=== PATIENT | female | born 1945 | race Caucasian/White ===

== ENCOUNTER 2020-07-31 12:46 | Outpatient (REF) | payer MEDICARE, OTHER, SELFPAY ==
--- NOTE | 2020-07-31 | CT_ITS ---
EXAMINATION: CT SINUS WITHOUT CONTRAST CLINICAL INFORMATION: Nasal polyp. COMPARISON: None TECHNIQUE: Axial 2 mm thin and reformatted 2 mm thin coronal and sagittal images of sinuses were obtained without contrast. This CT examination was performed using dose optimization techniques as appropriate, variously including the following: Automated exposure control. Adjustment of mA and/or kV according to patient size (this includes techniques or standardized protocols for targeted exams where dose is matched to indication/reason for exam; i.e. extremities or head). Use of iterative reconstruction technique. DLP: 89 mGy-cm FINDINGS: FRONTAL SINUSES AND DRAINAGE PATHWAYS: There is mild mucoperiosteal thickening bilateral frontal sinuses. The frontoethmoidal recesses are widely patent. MAXILLARY SINUSES AND DRAINAGE PATHWAYS: There is mild mucoperiosteal thickening bilateral maxillary sinuses. The ostiomeatal complex is patent bilaterally in spite of mild mucoperiosteal thickening. ETHMOID SINUSES: There is mild mucoperiosteal thickening right posterior ethmoid sinus. The ethmoid roofs are symmetric, with olfactory fossa depth of 0.48 cm on the right and 0.42 cm on the left. SPHENOID SINUSES AND DRAINAGE PATHWAYS: Mild mucoperiosteal thickening right sphenoid sinus is noted. The sphenoid ostia are patent. The carotid canals are covered by bone. NASAL CAVITY/NASOPHARYNX: The nasal cavity is clear. There is no nasal septal deviation/spurring. The nasopharynx is symmetric. Bilateral paradoxical middle turbinates are noted. ADDITIONAL RELEVANT FINDINGS: The TMJs articulate normally. The orbits and skull base soft tissues are unremarkable. The middle ear cavities and mastoid air cells are clear. Limited evaluation demonstrates no acute intracranial findings. CT/CT sinus wo con IMPRESSION: Chronic pansinusitis. The drainage pathways are widely patent. The nasal cavity and nasopharynx appears intact.
== END 2020-07-31 12:47 | disposition home or self-care (01) ==
LOC: HO.CT 12:46
PROVIDERS: PCP Internal Medicine; Visit Provider Otolaryngology
DX: J33.9 Nasal polyp, unspecified (principal)
CPT/HCPCS: 70486

== ENCOUNTER 2020-08-28 15:14 | Outpatient (REF) | payer MEDICARE, OTHER, SELFPAY ==
--- NOTE | 2020-08-28 15:18 | MM_ITS ---
EXAMINATION: MM SCREENING DIGITAL BREAST TOMOSYNTHESIS, BILATERAL CLINICAL INFORMATION: Screening. Asymptomatic. The lifetime risk of breast cancer based on the Tyrer-Cuzick Model is 13.0%. COMPARISON: Mammography: August 17, 2019 and studies dating back to February 17, 2012 TECHNIQUE: Digital breast tomosynthesis is performed in both the craniocaudal and mediolateral oblique views along with computer-aided detection (CAD). Synthesized 2D images are generated from the tomosynthesis. FINDINGS: The breasts are extremely dense, which lowers the sensitivity of mammography (ACR BI-RADS breast composition Category d). There are no significant masses, abnormal calcifications, or other abnormalities. There is essentially stable calcifications about the upper outer aspect of the left breast. MM/MM tomosynthesis screening BI IMPRESSION: There are no significant changes from prior study. ASSESSMENT: BI-RADS 2: Benign RECOMMENDATION: Routine annual mammography screening. This patient's information was entered into a reminder system with a target due date for their next mammogram.
== END 2020-08-28 15:15 | disposition home or self-care (01) ==
LOC: HO.MAMMO 15:14
PROVIDERS: PCP Internal Medicine; Visit Provider Internal Medicine
DX: Z12.31 Encounter for screening mammogram for malignant neoplasm of breast (principal)
CPT/HCPCS: 77063; 77067

== ENCOUNTER 2020-09-02 14:00 | Outpatient (REF) | payer MEDICARE, OTHER, SELFPAY ==
--- NOTE | 2020-09-02 | MM_ITS ---
EXAMINATION: BONE DENSITOMETRY CLINICAL INDICATION: Encounter for screening for osteoporosis. COMPARISON: Previous BD dated 07/27/2017 and baseline BD dated 11/15/2006. TECHNIQUE: Using a [employer] DXA System (software version: 13.1) manufactured by [employer], dual-energy x-ray absorptiometry was performed of the lumbar spine and left hip. The images are of good technical quality. Summary results are attached. FINDINGS: AP SPINE L1-L4: Current: BMD 1.222 g/cm2, Z-score 2.1, T-score 0.3, normal, 0.2% decrease from previous, 4.1% increase from baseline (<5% change is not significant). Prior: BMD 1.224 g/cm2. Baseline: BMD 1.174 g/cm2. LEFT FEMUR, NECK: Current: BMD 0.946 g/cm2, Z-score 1.2, T-score -0.7, normal. Prior: BMD 0.961 g/cm2. Baseline: BMD 0.985 g/cm2. LEFT FEMUR, TOTAL: Current: BMD 0.886 g/cm2, Z-score 0.7, T-score -1.0, normal, 12.3% decrease from previous, 12.0% decrease from baseline (<5% change is not significant). Prior: BMD 1.010 g/cm2. Baseline: BMD 1.007 g/cm2. IDENTIFIED RISK FACTORS: Menopause. HISTORY OF FRACTURE: None listed. MEDICATIONS: Vitamin D. MM/XR DEXA axial skeleton IMPRESSION: 1. DIAGNOSIS: Normal bone density based on the lowest T-score value of -1.0 in the total femur applying World Health Organization criteria. 2. 10-YEAR FRACTURE RISK PREDICTION, FRAX: According to the guidelines, FRAX calculation should only be performed on patients in the osteopenia bone density category. Therefore, FRAX was not performed on this patient. 3. Treatment Recommendations: NOF guidelines recommend consideration for treatment in postmenopausal women and men age 50 and older presenting with the following: -A hip or vertebral (clinical or morphometric) fracture. -T-score less than or equal to -2.5 at the femoral neck or spine after appropriate evaluation to exclude secondary causes. -Low bone mass at the hip or spine and a 10-year fracture probability by FRAX of greater than or equal to 3% for hip fracture or greater than or equal to 20% for major osteoporotic fracture based on the [place] adapted WHO algorithm. 4. Other Recommendations: All treatment decisions require clinical judgment and consideration of individual patient factors, including patient preferences, comorbidities, previous drug use, risk factors not captured in the FRAX model (e.g. frailty, falls, vitamin D deficiency, increased bone turnover, interval significant decline in bone density) and possible under or overestimation of fracture risk by FRAX. FUTURE SCAN RECOMMENDATION: People with diagnosed cases of osteoporosis or at high risk for fracture should have regular bone mineral density tests. For patients eligible for Medicare, routine testing is allowed once every 2 years. The testing frequency can be increased to one year for patients who have rapidly progressing disease, those who are receiving or discontinuing medical therapy to restore bone mass, or have additional risk factors.
== END 2020-09-02 14:01 | disposition home or self-care (01) ==
LOC: HO.MAMMO 14:00
PROVIDERS: PCP Internal Medicine; Visit Provider Internal Medicine
DX: Z78.0 Asymptomatic menopausal state (principal)
CPT/HCPCS: 77080

== ENCOUNTER 2020-12-17 14:48 | Outpatient (REF) | payer MEDICARE, OTHER, SELFPAY ==
[2020-12-17 16:46] LABS: Hematocrit 40.9 % (37-47); Hemoglobin 13.5 g/dl (12.0-16.0)
[2020-12-17 17:05] LABS: Alanine Aminotransferase 21 U/L (0-31); Albumin Level 4.3 g/dL (3.5-5.0); Alkaline Phosphatase 126 U/L (39-117); Anion Gap 13 (12-20); Aspartate Amino Transferase 23 U/L (5-31); Bilirubin Total 0.7 mg/dL (0.0-1.0); Blood Urea Nitrogen 22 mg/dL (9-16); Calcium 9.5 mg/dL (8.4-10.2); Carbon Dioxide 29 mmol/L (22-29); Chloride 102 mmol/L (96-108); Estimated Glomerular Filt Rate > 60; Glucose Random 79 mg/dL (60-115); Potassium 4.2 mmol/L (3.3-5.1); Sodium 140 mmol/L (135-145); Total Protein 7.5 g/dL (6.5-8.0)
== END 2020-12-17 14:49 | disposition home or self-care (01) ==
LOC: HO.HMGCLDS 14:48
PROVIDERS: PCP Internal Medicine; Visit Provider Internal Medicine
DX: I10 Essential (primary) hypertension (principal); J45.909 Unspecified asthma, uncomplicated; K44.9 Diaphragmatic hernia without obstruction or gangrene; J30.9 Allergic rhinitis, unspecified; G47.33 Obstructive sleep apnea (adult) (pediatric); I49.9 Cardiac arrhythmia, unspecified; Z91.09 Other allergy status, other than to drugs and biological substances; Z99.89 Dependence on other enabling machines and devices
CPT/HCPCS: 36415; 80053; 85014; 85018

== ENCOUNTER 2021-01-31 09:28 | Outpatient (REF) | payer MEDICARE, OTHER, SELFPAY ==
[2021-01-31 12:14] LABS: Alanine Aminotransferase 20 U/L (0-31); Albumin Level 4.1 g/dL (3.5-5.0); Alkaline Phosphatase 127 U/L (39-117); Aspartate Amino Transferase 22 U/L (5-31); Bilirubin Direct 0.3 mg/dL (0.0-0.5); Bilirubin Total 0.7 mg/dL (0.0-1.0); Cholesterol 170 mg/dL; HDL Cholesterol 56 mg/dL; LDL Cholesterol Calculated 100 mg/dl; Total Protein 7.1 g/dL (6.5-8.0); Triglycerides 70 mg/dL
== END 2021-01-31 09:29 | disposition home or self-care (01) ==
LOC: HO.HMGCLDS 09:28
PROVIDERS: PCP Internal Medicine; Visit Provider Internal Medicine
DX: I65.29 Occlusion and stenosis of unspecified carotid artery (principal)
CPT/HCPCS: 36415; 80061; 80076

== ENCOUNTER 2021-09-24 11:51 | Outpatient (REF) | payer MEDICARE, OTHER, SELFPAY ==
--- NOTE | ~2021-09-24 | MM_ITS ---
EXAMINATION: MM SCREENING DIGITAL BREAST TOMOSYNTHESIS, BILATERAL CLINICAL INFORMATION: Screening. Asymptomatic. The lifetime risk of breast cancer based on the Tyrer-Cuzick Model is 10%. COMPARISON: Mammography: 08/28/2020, [id number] [id number], 08/04/2018 TECHNIQUE: Digital breast tomosynthesis is performed in both the craniocaudal and mediolateral oblique views along with computer-aided detection (CAD). Synthesized 2D images are generated from the tomosynthesis. FINDINGS: The breasts are extremely dense, which lowers the sensitivity of mammography (ACR BI-RADS breast composition Category d). There are no significant masses, abnormal calcifications, or other abnormalities. Breast tissue composition borders on heterogeneously dense. There are scattered benign calcifications again seen mid upper outer left breast and posterior 5:00 right breast. No developing density. The axilla are unremarkable MM/MM tomosynthesis screening BI IMPRESSION: No mammographic evidence of malignancy. ASSESSMENT: BI-RADS 2: Benign RECOMMENDATION: Routine annual mammography screening. This patient's information was entered into a reminder system with a target due date for their next mammogram.
== END 2021-09-24 11:52 | disposition home or self-care (01) ==
LOC: HO.MAMMO 11:51
PROVIDERS: PCP Internal Medicine Endocrinology, Diabetes & Metabolism; Visit Provider Internal Medicine
DX: Z12.31 Encounter for screening mammogram for malignant neoplasm of breast (principal)
CPT/HCPCS: 77063; 77067

== ENCOUNTER 2021-11-26 11:38 | Outpatient (REF) | payer MEDICARE, OTHER, SELFPAY ==
[2021-11-26 14:00] LABS: Appearance Urine CLEAR; Color Urine YELLOW; Glucose Urine UA NEG (NEG); Leukocyte Esterase Urine NEG (NEG); Nitrite Urine NEG (NEG); Specific Gravity - Urine <= 1.005 (1.005-1.025); Urine Blood NEG (NEG); Urine Ketones NEG (NEG); Urine Protein NEG (NEG-TRACE)
== END 2021-11-26 11:39 | disposition home or self-care (01) ==
LOC: HO.HMGCLDS 11:38
PROVIDERS: Visit Provider Internal Medicine
DX: R10.2 Pelvic and perineal pain (principal)
CPT/HCPCS: 81003

== ENCOUNTER 2021-12-17 13:34 | Outpatient (REF) | payer MEDICARE, OTHER, SELFPAY ==
[2021-12-17 16:50] LABS: MANUAL DIFF FLAG NO
[2021-12-17 17:00] LABS: Basophils Percent Auto 0.4 % (0-2); Eosinophils Absolute Auto 0.3 X10*3/uL (0.0-0.4); Eosinophils Percent Auto 4.1 % (0-4); Hematocrit 38.3 % (37.0-47.0); Hemoglobin 12.5 g/dl (12.0-16.0); Imm Gran Abs Auto 0.05 X10*3/uL (0.00-0.03); Imm Gran Pct Auto 0.7 % (0.0-0.4); Lymphocytes Absolute Auto 1.1 X10*3/uL (1.2-4.9); Lymphocytes Percent Auto 16.5 % (20-40); Mean Corpuscular HGB Conc 32.6 g/dl (31.0-35.0); Mean Corpuscular Hemoglobin 29.8 pg (27.0-33.0); Mean Corpuscular Volume 91.4 fL (80.0-98.0); Mean Platelet Volume 10.8 fL (9.4-12.3); Monocytes Absolute Auto 0.9 X10*3/uL (0.1-1.2); Monocytes Percent Auto 12.6 % (2-11); Neutrophils Absolute Auto 4.5 x10*3/uL (2.0-8.3); Neutrophils Percent Auto 65.7 % (45-73); Platelet Count 270 X10*3/uL (160-400); Red Blood Count 4.19 X10*6/uL (4.20-5.50); Red Cell Distribution Width 12.3 % (11.0-16.0); White Blood Count 6.9 X10*3/uL (4.8-10.8)
[2021-12-17 17:08] LABS: Alanine Aminotransferase 16 U/L (0-31); Albumin Level 3.9 g/dL (3.5-5.0); Alkaline Phosphatase 121 U/L (39-117); Anion Gap 13 (12-20); Aspartate Amino Transferase 27 U/L (5-31); Bilirubin Total 0.8 mg/dL (0.0-1.0); Blood Urea Nitrogen 19 mg/dL (9-16); Calcium 9.4 mg/dL (8.4-10.2); Carbon Dioxide 26 mmol/L (22-29); Chloride 104 mmol/L (96-108); Estimated Glomerular Filt Rate > 60; Glucose Random 88 mg/dL (60-115); Magnesium 2.2 mg/dL (1.6-2.6); Potassium 4.4 mmol/L (3.3-5.1); Sodium 139 mmol/L (135-145); Total Protein 7.2 g/dL (6.5-8.0)
[2021-12-17 17:30] LABS: Ferritin 520 ng/mL (10-250); TSH reflex Free T4 0.79 uIU/mL (0.32-4.0)
[2021-12-17 17:32] LABS: Vitamin B12 495 pg/mL (200-900)
[2021-12-23 13:46] LABS: Vitamin D 25-OH, D2 <4 ng/mL; Vitamin D 25-OH, D3 34 ng/mL; Vitamin D 25-OH, Total 34 ng/mL (30-100)
== END 2021-12-17 13:35 | disposition home or self-care (01) ==
LOC: HO.HMGCLDS 13:34
PROVIDERS: PCP Internal Medicine; Visit Provider Internal Medicine
DX: R53.83 Other fatigue (principal); J45.909 Unspecified asthma, uncomplicated; I10 Essential (primary) hypertension; M35.00 Sjogren syndrome, unspecified; K44.9 Diaphragmatic hernia without obstruction or gangrene; Z91.09 Other allergy status, other than to drugs and biological substances
CPT/HCPCS: 36415; 80053; 82306; 82607; 82728; 83735; 84443; 85025

== ENCOUNTER 2022-01-22 11:08 | Outpatient (REF) | payer MEDICARE, OTHER, SELFPAY ==
[2022-01-22 14:38] LABS: Ferritin 358 ng/mL (10-250)
== END 2022-01-22 11:09 | disposition home or self-care (01) ==
LOC: HO.HMGCLDS 11:08
PROVIDERS: PCP Internal Medicine; Visit Provider Internal Medicine
DX: R79.89 Other specified abnormal findings of blood chemistry (principal)
CPT/HCPCS: 36415; 81256; 82728

== ENCOUNTER 2022-09-30 11:30 | Outpatient (REF) | payer MEDICARE, OTHER, SELFPAY ==
--- NOTE | ~2022-09-30 | MM_ITS ---
EXAMINATION: MM SCREENING DIGITAL BREAST TOMOSYNTHESIS, BILATERAL CLINICAL INFORMATION: Screening. Asymptomatic. The lifetime risk of breast cancer based on the Tyrer-Cuzick Model is 9%. COMPARISON: Mammography: 09/24/2021, 08/28/2020, 08/17/2019 TECHNIQUE: Digital breast tomosynthesis is performed in both the craniocaudal and mediolateral oblique views along with computer-aided detection (CAD). Synthesized 2D images are generated from the tomosynthesis. FINDINGS: The breasts are extremely dense, which lowers the sensitivity of mammography (ACR BI-RADS breast composition Category d). Parenchymal pattern is similar to prior studies. No developing density or significant mass or architectural abnormality. There are scattered coarse and punctate calcifications. The axilla and skin contours are unremarkable. There are no significant changes. MM/MM tomosynthesis screening BI IMPRESSION: No mammographic evidence of malignancy. ASSESSMENT: BI-RADS 2: Benign RECOMMENDATION: Routine annual mammography screening. This patient's information was entered into a reminder system with a target due date for their next mammogram.
== END 2022-09-30 11:31 | disposition home or self-care (01) ==
LOC: HO.MAMMO 11:30
PROVIDERS: PCP Internal Medicine; Visit Provider Internal Medicine Endocrinology, Diabetes & Metabolism
DX: Z12.31 Encounter for screening mammogram for malignant neoplasm of breast (principal)
CPT/HCPCS: 77063; 77067

== ENCOUNTER 2022-10-15 08:59 | Outpatient (REF) | payer MEDICARE, OTHER, SELFPAY ==
[2022-10-15 11:22] LABS: MANUAL DIFF FLAG NO
[2022-10-15 11:36] LABS: Basophils Percent Auto 0.7 % (0-2); Eosinophils Absolute Auto 0.2 X10*3/uL (0.0-0.4); Eosinophils Percent Auto 5.1 % (0-4); Hematocrit 42.6 % (37.0-47.0); Hemoglobin 14.1 g/dl (12.0-16.0); Imm Gran Abs Auto 0.01 X10*3/uL (0.00-0.03); Imm Gran Pct Auto 0.2 % (0.0-0.4); Lymphocytes Absolute Auto 1.4 X10*3/uL (1.2-4.9); Lymphocytes Percent Auto 31.6 % (20-40); Mean Corpuscular HGB Conc 33.1 g/dl (31.0-35.0); Mean Corpuscular Hemoglobin 29.9 pg (27.0-33.0); Mean Corpuscular Volume 90.4 fL (80.0-98.0); Mean Platelet Volume 11.3 fL (9.4-12.3); Monocytes Absolute Auto 0.5 X10*3/uL (0.1-1.2); Monocytes Percent Auto 11.5 % (2-11); Neutrophils Absolute Auto 2.2 x10*3/uL (2.0-8.3); Neutrophils Percent Auto 50.9 % (45-73); Platelet Count 196 X10*3/uL (160-400); Red Blood Count 4.71 X10*6/uL (4.20-5.50); Red Cell Distribution Width 12.6 % (11.0-16.0); White Blood Count 4.3 X10*3/uL (4.8-10.8)
[2022-10-15 12:13] LABS: Alanine Aminotransferase 23 U/L (0-31); Albumin Level 4.1 g/dL (3.5-5.0); Alkaline Phosphatase 120 U/L (39-117); Anion Gap 14 (12-20); Aspartate Amino Transferase 26 U/L (5-31); Bilirubin Total 0.8 mg/dL (0.0-1.0); Blood Urea Nitrogen 19 mg/dL (9-16); Calcium 9.4 mg/dL (8.4-10.2); Carbon Dioxide 26 mmol/L (22-29); Chloride 108 mmol/L (96-108); Cholesterol 130 mg/dL; Estimated Glomerular Filt Rate > 60; Ferritin 320 ng/mL (10-250); Glucose Fasting 86 mg/dL (60-99); HDL Cholesterol 48 mg/dL; LDL Cholesterol Calculated 65 mg/dl; Sodium 144 mmol/L (135-145); TSH reflex Free T4 1.59 uIU/mL (0.32-4.0); Total Protein 7.1 g/dL (6.5-8.0); Triglycerides 86 mg/dL
== END 2022-10-15 09:00 | disposition home or self-care (01) ==
LOC: HO.HMGCLDS 08:59
PROVIDERS: PCP Internal Medicine; Visit Provider Internal Medicine
DX: F41.9 Anxiety disorder, unspecified (principal); I48.0 Paroxysmal atrial fibrillation; R06.02 Shortness of breath; R79.89 Other specified abnormal findings of blood chemistry; I10 Essential (primary) hypertension
CPT/HCPCS: 36415; 80053; 80061; 81256; 82728; 84443; 85025

== ENCOUNTER 2023-02-26 13:48 | Outpatient (REF) | payer MEDICARE, OTHER, SELFPAY ==
[2023-02-26 16:16] LABS: MANUAL DIFF FLAG NO
[2023-02-26 16:29] LABS: Basophils Percent Auto 0.6 % (0-2); Eosinophils Absolute Auto 0.2 X10*3/uL (0.0-0.4); Eosinophils Percent Auto 3.7 % (0-4); Hemoglobin 13.1 g/dl (12.0-16.0); Imm Gran Abs Auto 0.02 X10*3/uL (0.00-0.03); Imm Gran Pct Auto 0.4 % (0.0-0.4); Lymphocytes Absolute Auto 1.6 X10*3/uL (1.2-4.9); Lymphocytes Percent Auto 30.2 % (20-40); Mean Corpuscular HGB Conc 32.8 g/dl (31.0-35.0); Mean Corpuscular Hemoglobin 30.2 pg (27.0-33.0); Mean Corpuscular Volume 92.2 fL (80.0-98.0); Mean Platelet Volume 11.4 fL (9.4-12.3); Monocytes Absolute Auto 0.6 X10*3/uL (0.1-1.2); Monocytes Percent Auto 11.9 % (2-11); Neutrophils Absolute Auto 2.9 x10*3/uL (2.0-8.3); Neutrophils Percent Auto 53.2 % (45-73); Platelet Count 190 X10*3/uL (160-400); Red Blood Count 4.34 X10*6/uL (4.20-5.50); Red Cell Distribution Width 12.9 % (11.0-16.0); White Blood Count 5.4 X10*3/uL (4.8-10.8)
[2023-02-26 17:49] LABS: Ferritin 300 ng/mL (10-250)
[2023-02-26 19:10] LABS: Alanine Aminotransferase 20 U/L (0-31); Albumin Level 4.2 g/dL (3.5-5.0); Alkaline Phosphatase 107 U/L (39-117); Anion Gap 13 (12-20); Aspartate Amino Transferase 27 U/L (5-31); Bilirubin Total 0.9 mg/dL (0.0-1.0); Blood Urea Nitrogen 19 mg/dL (9-16); Calcium 10.2 mg/dL (8.4-10.2); Carbon Dioxide 26 mmol/L (22-29); Chloride 105 mmol/L (96-108); Estimated Glomerular Filt Rate > 60; Glucose Random 76 mg/dL (60-115); Potassium 3.9 mmol/L (3.3-5.1); Sodium 140 mmol/L (135-145); Total Protein 7.7 g/dL (6.5-8.0)
== END 2023-02-26 13:49 | disposition home or self-care (01) ==
LOC: HO.HMGCLDS 13:48
PROVIDERS: Absent Provider Internal Medicine Rheumatology; PCP Internal Medicine; Referring Provider Internal Medicine; Visit Provider Internal Medicine
DX: I10 Essential (primary) hypertension (principal); M35.00 Sjogren syndrome, unspecified; K44.9 Diaphragmatic hernia without obstruction or gangrene; J45.909 Unspecified asthma, uncomplicated; I48.0 Paroxysmal atrial fibrillation; R79.89 Other specified abnormal findings of blood chemistry; Z91.09 Other allergy status, other than to drugs and biological substances
CPT/HCPCS: 36415; 80053; 82728; 85025

== ENCOUNTER 2023-07-14 12:55 | Outpatient (AMB) | payer MEDICARE, OTHER, SELFPAY ==
--- NOTE | 2023-07-14 13:01 | MHC.PC.OV ---
Vital Signs 07/14/23 13:02 Height 5 ft 6 in Weight 156 lb BMI 25.2 BP 130/80 Blood Pressure Location Rt brachial Position Sitting Pulse 78 Pulse Source Pulse Oximeter Pulse Oximetry (%) 98 Oxygen Delivery Method Room Air Intake Visit Reasons: 4 month follow up Allergies albuterol Allergy (Unknown, Verified 07/14/23 13:03) unknown amoxicillin Allergy (Unknown, Verified 07/14/23 13:03) nausea headache dizzy weak bed ridden for 2 days lisinopril [Zestril] Allergy (Unknown, Verified 07/14/23 13:03) cough mepivocaine Allergy (Unknown, Uncoded 07/14/23 13:03) dizziness, weak, nausea OLIMPIA inhibitors - zetril Adverse Reaction (Unknown, Uncoded 07/14/23 13:03) cough Medication List - Last Reconciled 07/14/23 by Bola Carroll MD acetaminophen (Tylenol Extra Strength) 500 mg PO Q6H PRN amlodipine 2.5 mg PO DAILY apixaban (Eliquis) 5 mg PO BID atorvastatin 10 mg PO DAILY clobetasol 0.05% grams topical BID coenzyme Q10 (Co Q-10) PO DAILY escitalopram oxalate 5 mg PO DAILY 90 days fluocinolone 0.025% appl topical losartan 50 mg PO BID 90 days metoprolol succinate ER 25 mg PO DAILY omega-3 fatty acids (Fish Oil Concentrate) 1,000 mg PO DAILY psyllium husk (Metamucil) 0.4 grams PO DAILY triamcinolone acetonide 0.1% appl topical BID Tobacco use date assessed: 07/14/23 Fall risk assessment: No Falls in past year Last assessed Fall Risk: 07/14/23 Dental Screening Dental Screen Date: 07/14/23 Did you have a dental visit in the last 12 months?: Yes Did you have a dental problem in the last 6 months where you did not have access to dental care?: No Was dental information given to patient?: Patient has dentist HPI 4 month follow up HPI Details Patient is 78-year-old female came in today for her regular follow-up appointment Hypertension:? Blood pressure is stable, patient is taking? losartan 50 mg and metoprolol succinate 25 mg for paroxysmal atrial fibrillation.? ?She is also on amlodipine 2.5 mg Hiatal hernia: Patient is taking Pepcid [id number] and diet-controlled Low Voltage Electrician is? Dr. Zamora, patient is seeing him for atrial fibrillation, patient is on Eliquis She has seen Dr. Long for electrophysiological ablation, and was told she is not a candidate. She will be having nuclear images to rule out amyloid in her heart She is also on atorvastatin for lipid control Allergies: Continue Zyrtec Anxiety disorder:? Continue Lexapro 5 mg Other providers patient is seeing 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 Oscar Malone for chronic Vagina itching [ Lichen sclerosis ] Follow-up November She had labs done through Dr. Chong staff and Dr. Zamora they were reviewed Prevnar 20 vaccine was given today She has had COVID vaccine April 30, flu vaccine May 31, RSV vaccine July 03 [facility] Medical History Chronic cardiac arrhythmia Obstructive sleep apnea on CPAP Asthma, mild Hiatal hernia Atrial septal defect Sjogrens syndrome YODIT positive Allergic rhinitis Environmental allergies Hypertension, essential Surgical History History of colonoscopy Family History Father CAD (coronary artery disease) Substance use disorder Mother Diabetes mellitus HTN (hypertension) Colon cancer Breast cancer Stroke Kidney problem BRCA negative CAD (coronary artery disease) Sister HTN (hypertension) Maternal Grandmother Unknown family medical history Maternal Grandfather No problems noted. Paternal Grandfather No problems noted. Paternal Grandmother No problems noted. Maternal Aunt Breast cancer Brother No problems noted. Sister No problems noted. Social History Housing: House Alcohol intake: current Alcohol intake frequency: holidays/special occasions only Patient Tobacco Use Status: Never used Tobacco e-Cigarette/Vaping Use: Never Used Second Hand Smoke Exposure: Yes () Current occupational status: retired Cognitive needs: No Hearing needs: No Vision needs: No Questionnaire PHQ-9 Over the last 2 weeks, how often have you been bothered by any of the following problems? 1. Little interest or pleasure in doing things: not at all 2. Feeling down, depressed, or hopeless: not at all 3. Trouble falling or staying asleep, or sleeping too much: several days 4. Feeling tired or having little energy: more than half the days 5. Poor appetite or overeating: not at all 6. Feeling bad about yourself - or that you are a failure or have let yourself or your family down: not at all 7. Trouble concentrating on things, such as reading the newspaper or watching television: not at all 8. Moving or speaking so slowly that other people could have noticed. Or the opposite - being so fidgety or restless that you have been moving around a lot more than usual: not at all 9. Thoughts that you would be better off or of hurting yourself in some way: not at all Total score: 3 Depression Screening Interpretation: Negative Depression Screening Done: Yes 63819 - PHQ-9 Billing: Yes Source: Developed by Drs. Kaushik Simons, Lizzette Shirley, Arnav Pritchard and colleagues, with an educational romina from [employer]. Thrive Questionnaire Date Thrive assessed: 10/14/22 MELISA-7 AMB Questionnaire MELISA-7 Date MELISA - 7 assessed: 10/14/22 Source: Developed by Drs. Kaushik Simons, Arnav Ghotra and colleagues, with an educational romina from [employer]. Review of Systems Const Denies chills and Denies fever(s) ENT Denies epistaxis and Denies nasal discharge Card Denies chest pain Resp Denies chest congestion, Denies cough and Denies hemoptysis GI Denies diarrhea and Denies nausea Skin/Breast Denies rash Neuro Reports no additional complaints Psych Reports no additional complaints Endo Reports no additional complaints Physical exam (Primary Care) Vital Signs: Last Vital Signs Pulse 78 07/14/23 13:02 BP 130/80 07/14/23 13:02 Pulse Ox 98 07/14/23 13:02 Oxygen Delivery Method Room Air 07/14/23 13:02 BMI result Body Mass Index 25.2 Tobacco/Smoking Status: Tobacco use Status Tobacco use date assessed 07/14/23 07/14/23 13:04 Patient Tobacco Use Status Never used Tobacco 07/14/23 13:02 e-Cigarette/Vaping Use Never Used 07/14/23 13:02 PHQ-9: PHQ-9 Score PHQ-9: Total score 3 07/14/23 13:33 Depression Screening Interpretation: Negative Thrive Assessment: Date of Thrive Assessment Date Thrive assessed 10/14/22 07/14/23 13:02 Const General: cooperative, comfortable and no acute distress Orientation/consciousness: patient oriented x3 HENMT Head: Yes normocephalic Eyes General: appearance normal, both eyes and all related structures Neck Neck: Yes supple Resp Other: Seemed to be in mild shortness of breath which is a baseline for the patient Effort & Inspection: no cough and no stridor Auscultation: clear to auscultation bilaterally Cardio Other: Irregular heart rate Heart sounds: S1 normal heart sound present and S2 normal heart sound present Skin General skin exam: turgor normal Neuro General: patient oriented x3, tone normal and moves all extremities Extrem Right lower extremity: no edema Left lower extremity: no edema Immunizations pneumoc 20-sariah conj-dip cr(PF) 0.5 mL IM syringe Performing Provider: Bola Carroll MD Performing Location: [facility] [place] Administered by: Rosa Choudhury CMA on 07/14/23 13:33 Dose Route Admin Location Dispensed Lot Number Expiration Date NDC Dye Beck Reel Operator 0.5 mL IM Left Deltoid 0.5 mL [id number] 06/05/24 9893-5983-17 RedT/Cloubrain VIS Given Date VIS Provided VIS Publication Date 07/14/23 Single Vaccine 21 Eligibility Eligibility Date Funding Source Not [facility] Eligible 07/14/23 Private Assessment and Plan Assessment & Plan (1) Paroxysmal atrial fibrillation: Code(s): I48.0 - Paroxysmal atrial fibrillation (2) Hypertension, essential: Code(s): I10 - Essential (primary) hypertension (3) Asthma, mild: Code(s): J45.909 - Unspecified asthma, uncomplicated Qualifiers: Asthma complication type: uncomplicated Asthma persistence: intermittent Qualified Code(s): J45.20 - Mild intermittent asthma, uncomplicated (4) Environmental allergies: Code(s): Z91.09 - Other allergy status, other than to drugs and biological substances (5) Sjogrens syndrome: Code(s): M35.00 - Sjogren syndrome, unspecified Qualifiers: Sjogren organ or system involvement: unspecified organ involvement Qualified Code(s): M35.00 - Sjogren syndrome, unspecified (6) Hiatal hernia: Code(s): K44.9 - Diaphragmatic hernia without obstruction or gangrene (7) Allergic rhinitis: Code(s): J30.9 - Allergic rhinitis, unspecified Qualifiers: Allergic rhinitis trigger: unspecified Allergic rhinitis seasonality: non-seasonal Qualified Code(s): J30.89 - Other allergic rhinitis (8) Elevated ferritin: Code(s): R79.89 - Other specified abnormal findings of blood chemistry (9) Discoid lupus erythematosus: Code(s): L93.0 - Discoid lupus erythematosus (10) Anxiety, generalized: Code(s): F41.1 - Generalized anxiety disorder Plan Patient is 78-year-old female came in today for her regular follow-up appointment Hypertension:? Blood pressure is stable, patient is taking? losartan 50 mg and metoprolol succinate 25 mg for paroxysmal atrial fibrillation.? ?She is also on amlodipine 2.5 mg Hiatal hernia: Patient is taking Pepcid [id number] and diet-controlled Low Voltage Electrician is? Dr. Zamora, patient is seeing him for atrial fibrillation, patient is on Eliquis She has seen Dr. Long for electrophysiological ablation, and was told she is not a candidate. She will be having nuclear images to rule out amyloid in her heart She is also on atorvastatin for lipid control Allergies: Continue Zyrtec Anxiety disorder:? Continue Lexapro 5 mg Other providers patient is seeing are 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 Oscar Malone for chronic Vagina itching [ Lichen sclerosis ] Follow-up November She had labs done through Dr. Chong staff and Dr. Zamora they were reviewed Prevnar 20 vaccine was given today She has had COVID vaccine April 30, flu vaccine May 31, RSV vaccine July 03 Orders: Orders Pneumococcal 20 Immunization Today Z23 - Encounter for immunization Medications: New atorvastatin 10 mg PO DAILY 90 tabs 0RF Changed From metoprolol succinate ER 25 mg PO DAILY To metoprolol succinate ER 25 mg PO DAILY 90 tabs 1RF 90 days Refilled amlodipine 2.5 mg PO DAILY 90 tabs 0RF Coding Level of Care Code Est Pt Level 4 (79296) Diagnoses Paroxysmal atrial fibrillation I48.0 Hypertension, essential I10 Mild intermittent asthma without complication J45.20 Asthma complication type: uncomplicated Asthma persistence: intermittent Environmental allergies Z91.09 Sjogren's syndrome, with unspecified organ involvement M35.00 Sjogren organ or system involvement: unspecified organ involvement Hiatal hernia K44.9 Non-seasonal allergic rhinitis, unspecified trigger J30.89 Allergic rhinitis trigger: unspecified Allergic rhinitis seasonality: non-seasonal Elevated ferritin R79.89 Discoid lupus erythematosus L93.0 Anxiety, generalized F41.1
[2023-07-14 13:02] VITALS: BP 130/80; PULSE 78; O2SAT 98; BMI 25.2
== END 2023-07-14 13:50 | disposition home or self-care (01) ==
PROVIDERS: PCP Internal Medicine; Visit Provider Internal Medicine
DX: I48.0 Paroxysmal atrial fibrillation (principal); M35.00 Sjogren syndrome, unspecified; I10 Essential (primary) hypertension; J45.20 Mild intermittent asthma, uncomplicated; Z91.09 Other allergy status, other than to drugs and biological substances; K44.9 Diaphragmatic hernia without obstruction or gangrene; J30.89 Other allergic rhinitis; R79.89 Other specified abnormal findings of blood chemistry; L93.0 Discoid lupus erythematosus; F41.1 Generalized anxiety disorder; Z23 Encounter for immunization
CPT/HCPCS: 90471; 90677; 99214

== ENCOUNTER 2023-10-06 11:34 | Outpatient (REF) | payer MEDICARE, OTHER, SELFPAY ==
--- NOTE | ~2023-10-06 | MM_ITS ---
EXAMINATION: MM SCREENING DIGITAL BREAST TOMOSYNTHESIS, BILATERAL CLINICAL INFORMATION: Screening. Asymptomatic. COMPARISON: Mammography: This study is compared with prior exams dating back to 2018. TECHNIQUE: Digital breast tomosynthesis is performed in both the craniocaudal and mediolateral oblique views along with computer-aided detection (CAD). Synthesized 2D images are generated from the tomosynthesis. FINDINGS: The breasts are extremely dense, which lowers the sensitivity of mammography (ACR BI-RADS breast composition Category d). There are no significant masses, abnormal calcifications, or other abnormalities. Few, unchanged, coarse, bilateral, benign calcifications are present. MM/MM tomosynthesis screening BI IMPRESSION: No mammographic evidence of malignancy. ASSESSMENT: BI-RADS BI-RADS 2 - Benign Findings RECOMMENDATION: Routine annual mammography screening. 1 year F/U This examination should not preclude the clinical evaluation of a suspicious palpable abnormality. This patient's information was entered into a reminder system with a target due date for their next mammogram.
== END 2023-10-06 11:35 | disposition home or self-care (01) ==
LOC: HO.MAMMO 11:34
PROVIDERS: PCP Internal Medicine; Visit Provider Internal Medicine
DX: Z12.31 Encounter for screening mammogram for malignant neoplasm of breast (principal)
CPT/HCPCS: 77063; 77067

== ENCOUNTER → 2023-10-06 11:45 | Outpatient (BNV) | payer MEDICARE, OTHER, SELFPAY | PROVIDERS: PCP Internal Medicine; Visit Provider Radiology Diagnostic Radiology | DX: Z12.31 Encounter for screening mammogram for malignant neoplasm of breast (principal) | CPT/HCPCS: 77063; 77067 ==

== ENCOUNTER 2023-11-16 13:13 | Outpatient (AMB) | payer MEDICARE, OTHER, SELFPAY ==
[2023-11-16 13:21] VITALS: BP 130/86; PULSE 73; O2SAT 97; BMI 24.9
--- NOTE | 2023-11-16 13:21 | A.OFFPC_ITS ---
Vital Signs 11/16/23 13:21 Height 5 ft 6 in Weight 154 lb 8 oz BMI 24.9 BP 130/86 Blood Pressure Location Rt brachial Position Sitting Pulse 73 Pulse Source Pulse Oximeter Pulse Oximetry (%) 97 Oxygen Delivery Method Room Air Intake Visit Reasons: 8 month Follow up Allergies albuterol Allergy (Unknown, Verified 11/16/23 13:23) unknown amoxicillin Allergy (Unknown, Verified 11/16/23 13:23) nausea headache dizzy weak bed ridden for 2 days lisinopril [Zestril] Allergy (Unknown, Verified 11/16/23 13:23) cough mepivocaine Allergy (Unknown, Uncoded 07/14/23 13:03) dizziness, weak, nausea OLIMPIA inhibitors - zetril Adverse Reaction (Unknown, Uncoded 07/14/23 13:03) cough Medication List - Last Reconciled 11/16/23 by Bola Carroll MD acetaminophen (Tylenol Extra Strength) 500 mg PO Q6H PRN amlodipine 2.5 mg PO DAILY apixaban (Eliquis) 5 mg PO BID atorvastatin 10 mg PO DAILY clobetasol 0.05% grams topical BID coenzyme Q10 (Co Q-10) PO DAILY escitalopram oxalate 5 mg PO DAILY 90 days fluocinolone 0.025% appl topical losartan 50 mg PO BID 90 days metoprolol succinate ER 25 mg PO DAILY 90 days omega-3 fatty acids (Fish Oil Concentrate) 1,000 mg PO DAILY psyllium husk (Metamucil) 0.4 grams PO DAILY triamcinolone acetonide 0.1% appl topical BID Tobacco use date assessed: 11/16/23 Fall risk assessment: No Falls in past year Last assessed Fall Risk: 11/16/23 Dental Screening Dental Screen Date: 11/16/23 Did you have a dental visit in the last 12 months?: Yes Did you have a dental problem in the last 6 months where you did not have access to dental care?: No Was dental information given to patient?: Patient has dentist HPI 8 month Follow up HPI Details Patient is 78-year-old female came in today for her regular follow-up appointment Patient mammogram which showed dense breast she has family history of breast cancer, mother at the age of 86 and 2 aunts had breast cancer Mother had bilateral mastectomy done I have ordered MRI of breast Hypertension:? Blood pressure is stable, patient is taking? losartan 50 mg and metoprolol succinate 25 mg for paroxysmal atrial fibrillation.? ?She is also on amlodipine 2.5 mg Hiatal hernia: Patient is taking Pepcid ykan-tli-avmdeum and diet-controlled, she will be having colonoscopies on through Dr. Lima I would recommend that she has EGD done as well, Dr. Genao has recommended that also Accounting Reconciliation Clerk is? Dr. Zamora, patient is seeing him for atrial fibrillation, patient is on Eliquis She has seen Dr. Long for electrophysiological ablation, and was told she is not a candidate. She is also on atorvastatin for lipid control Allergies: Continue Zyrtec Anxiety disorder:? Continue Lexapro 5 mg Other providers patient is 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 Kay and Dr. Zamora as well Patient has appointment for follow-up in March [facility] Medical History Chronic cardiac arrhythmia Obstructive sleep apnea on CPAP Asthma, mild Hiatal hernia Atrial septal defect Sjogrens syndrome YODIT positive Allergic rhinitis Environmental allergies Hypertension, essential Surgical History History of colonoscopy Family History Father CAD (coronary artery disease) Substance use disorder Mother Diabetes mellitus HTN (hypertension) Colon cancer Breast cancer Stroke Kidney problem BRCA negative CAD (coronary artery disease) Sister HTN (hypertension) Maternal Grandmother Unknown family medical history Maternal Grandfather No problems noted. Paternal Grandfather No problems noted. Paternal Grandmother No problems noted. Maternal Aunt Breast cancer Brother No problems noted. Sister No problems noted. Social History Housing: House Alcohol intake: current Alcohol intake frequency: holidays/special occasions only Patient Tobacco Use Status: Never used Tobacco e-Cigarette/Vaping Use: Never Used Second Hand Smoke Exposure: Yes () Current occupational status: retired Cognitive needs: No Hearing needs: No Vision needs: No Questionnaire PHQ-9 Over the last 2 weeks, how often have you been bothered by any of the following problems? Depression Screening Interpretation: Negative Depression Screening Done: Yes Source: Developed by Drs. Kaushik Simons, Lizzette Shirley, Arnav Pritchard and colleagues, with an educational romina from [employer]. Thrive Questionnaire Date Thrive assessed: 10/14/22 AUDIT C Alcohol Use Questionnaire (AUDIT-C) 1. How often do you have a drink containing alcohol?: Never 3. How often do you have six or more drinks on one occasion?: Never Total Score: 0 Score Reviewed/Action Taken: Yes MELISA-7 AMB Questionnaire MELISA-7 Date MELISA - 7 assessed: 10/14/22 Source: Developed by Drs. Kaushik Simons, Lizzette Shirley, Arnav Pritchard and colleagues, with an educational romina from [employer]. Review of Systems Const Denies chills and Denies fever(s) ENT Denies epistaxis and Denies nasal discharge Card Denies chest pain Resp Denies chest congestion, Denies cough and Denies hemoptysis GI Denies diarrhea and Denies nausea Skin/Breast Denies rash Neuro Reports no additional complaints Psych Reports no additional complaints Endo Reports no additional complaints Physical exam (Primary Care) Vital Signs: Last Vital Signs Pulse 73 11/16/23 13:21 BP 130/86 11/16/23 13:21 Pulse Ox 97 11/16/23 13:21 Oxygen Delivery Method Room Air 11/16/23 13:21 BMI result Body Mass Index 24.9 Tobacco/Smoking Status: Tobacco use Status Tobacco use date assessed 11/16/23 11/16/23 13:25 Patient Tobacco Use Status Never used Tobacco 11/16/23 13:25 e-Cigarette/Vaping Use Never Used 11/16/23 13:25 Depression Screening Interpretation: Negative Thrive Assessment: Date of Thrive Assessment Date Thrive assessed 10/14/22 11/16/23 13:25 Const General: cooperative, comfortable and no acute distress Orientation/consciousness: patient oriented x3 HENMT Head: Yes normocephalic Eyes General: appearance normal, both eyes and all related structures Neck Neck: Yes supple Resp Other: Seemed to be in mild shortness of breath which is a baseline for the patient Effort & Inspection: no cough and no stridor Auscultation: clear to auscultation bilaterally Cardio Other: Irregular heart rate Heart sounds: S1 normal heart sound present and S2 normal heart sound present Skin General skin exam: turgor normal Neuro General: patient oriented x3, tone normal and moves all extremities Extrem Right lower extremity: no edema Left lower extremity: no edema Assessment and Plan Assessment & Plan (1) Dense breast tissue on mammogram: Code(s): R92.30 - Dense breasts, unspecified Qualifiers: Mammographic dense breast tissue type: unspecified type Qualified Code(s): R92.30 - Dense breasts, unspecified (2) Family history of breast cancer: Code(s): Z80.3 - Family history of malignant neoplasm of breast (3) Anxiety, generalized: Code(s): F41.1 - Generalized anxiety disorder (4) Elevated ferritin: Code(s): R79.89 - Other specified abnormal findings of blood chemistry (5) Paroxysmal atrial fibrillation: Code(s): I48.0 - Paroxysmal atrial fibrillation (6) Discoid lupus erythematosus: Code(s): L93.0 - Discoid lupus erythematosus (7) Environmental allergies: Code(s): Z91.09 - Other allergy status, other than to drugs and biological substances (8) Hypertension, essential: Code(s): I10 - Essential (primary) hypertension (9) Sjogrens syndrome: Code(s): M35.00 - Sjogren syndrome, unspecified Qualifiers: Sjogren organ or system involvement: unspecified organ involvement Qualified Code(s): M35.00 - Sjogren syndrome, unspecified (10) Asthma, mild: Code(s): J45.909 - Unspecified asthma, uncomplicated Qualifiers: Asthma complication type: uncomplicated Asthma persistence: intermittent Qualified Code(s): J45.20 - Mild intermittent asthma, uncomplicated (11) Hiatal hernia: Code(s): K44.9 - Diaphragmatic hernia without obstruction or gangrene (12) Allergic rhinitis: Code(s): J30.9 - Allergic rhinitis, unspecified Qualifiers: Allergic rhinitis seasonality: non-seasonal Allergic rhinitis trigger: unspecified Qualified Code(s): J30.89 - Other allergic rhinitis Plan Patient is 78-year-old female came in today for her regular follow-up appointment Patient mammogram which showed dense breast she has family history of breast cancer, mother at the age of 86 and 2 aunts had breast cancer Mother had bilateral mastectomy done I have ordered MRI of breast Hypertension:? Blood pressure is stable, patient is taking? losartan 50 mg and metoprolol succinate 25 mg for paroxysmal atrial fibrillation.? ?She is also on amlodipine 2.5 mg Hiatal hernia: Patient is taking Pepcid mais-juh-lrllbmn and diet-controlled, she will be having colonoscopies on through Dr. Lima I would recommend that she has EGD done as well, Dr. Genao has recommended that also Accounting Reconciliation Clerk is? Dr. Zamora, patient is seeing him for atrial fibrillation, patient is on Eliquis She has seen Dr. Long for electrophysiological ablation, and was told she is not a candidate. She is also on atorvastatin for lipid control Allergies: Continue Zyrtec Anxiety disorder:? Continue Lexapro 5 mg Other providers patient is seeing are 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 Kay and Dr. Zamora as well Patient has appointment for follow-up in March Orders: Orders Vitamin B12 Today F41.1 - Generalized anxiety disorder, I10 - Essential (primary) hypertension, I48.0 - Paroxysmal atrial fibrillation, L93.0 - Discoid lupus erythematosus, M35.00 - Sjogren syndrome, unspecified, R79.89 - Other specified abnormal findings of blood chemistry, Z91.09 - Other allergy status, other than to drugs and biological substances Ferritin Today R79.89 - Other specified abnormal findings of blood chemistry MR breast BI wo con Today R92.30 - Dense breasts, unspecified, Z80.3 - Family history of malignant neoplasm of breast Complete Blood Count Auto Diff Today F41.1 - Generalized anxiety disorder, I10 - Essential (primary) hypertension, I48.0 - Paroxysmal atrial fibrillation, L93.0 - Discoid lupus erythematosus, M35.00 - Sjogren syndrome, unspecified, R79.89 - Other specified abnormal findings of blood chemistry, Z91.09 - Other allergy status, other than to drugs and biological substances Comprehensive Met. Panel Today F41.1 - Generalized anxiety disorder, I10 - Essential (primary) hypertension, I48.0 - Paroxysmal atrial fibrillation, L93.0 - Discoid lupus erythematosus, M35.00 - Sjogren syndrome, unspecified, R79.89 - Other specified abnormal findings of blood chemistry, Z91.09 - Other allergy status, other than to drugs and biological substances LDL Cholesterol Direct Today F41.1 - Generalized anxiety disorder, I10 - Essential (primary) hypertension, I48.0 - Paroxysmal atrial fibrillation, L93.0 - Discoid lupus erythematosus, M35.00 - Sjogren syndrome, unspecified, R79.89 - Other specified abnormal findings of blood chemistry, Z91.09 - Other allergy status, other than to drugs and biological substances Vitamin D 25-OH (D2 and D3) Today F41.1 - Generalized anxiety disorder, I10 - Essential (primary) hypertension, I48.0 - Paroxysmal atrial fibrillation, L93.0 - Discoid lupus erythematosus, M35.00 - Sjogren syndrome, unspecified, R79.89 - Other specified abnormal findings of blood chemistry, Z91.09 - Other allergy status, other than to drugs and biological substances TSH reflex Free T4 Today F41.1 - Generalized anxiety disorder, I10 - Essential (primary) hypertension, I48.0 - Paroxysmal atrial fibrillation, L93.0 - Discoid lupus erythematosus, M35.00 - Sjogren syndrome, unspecified, R79.89 - Other specified abnormal findings of blood chemistry, Z91.09 - Other allergy status, other than to drugs and biological substances Coding Level of Care Code Est Pt Level 4 (42349) Diagnoses Dense breast tissue on mammogram, unspecified type R92.30 Mammographic dense breast tissue type: unspecified type Family history of breast cancer Z80.3 Anxiety, generalized F41.1 Elevated ferritin R79.89 Paroxysmal atrial fibrillation I48.0 Discoid lupus erythematosus L93.0 Environmental allergies Z91.09 Hypertension, essential I10 Sjogren's syndrome, with unspecified organ involvement M35.00 Sjogren organ or system involvement: unspecified organ involvement Mild intermittent asthma without complication J45.20 Asthma complication type: uncomplicated Asthma persistence: intermittent Hiatal hernia K44.9 Non-seasonal allergic rhinitis, unspecified trigger J30.89 Allergic rhinitis seasonality: non-seasonal Allergic rhinitis trigger: unspecified
== END 2023-11-16 14:51 | disposition home or self-care (01) ==
PROVIDERS: PCP Internal Medicine; Visit Provider Internal Medicine
DX: R92.30 Dense breasts, unspecified (principal); I48.0 Paroxysmal atrial fibrillation; M35.00 Sjogren syndrome, unspecified; Z80.3 Family history of malignant neoplasm of breast; F41.1 Generalized anxiety disorder; R79.89 Other specified abnormal findings of blood chemistry; L93.0 Discoid lupus erythematosus; Z91.09 Other allergy status, other than to drugs and biological substances; I10 Essential (primary) hypertension; J45.20 Mild intermittent asthma, uncomplicated; K44.9 Diaphragmatic hernia without obstruction or gangrene; J30.89 Other allergic rhinitis
CPT/HCPCS: 99214

== ENCOUNTER 2023-11-16 13:44 | Outpatient (REF) | payer MEDICARE, OTHER, SELFPAY ==
[2023-11-16 16:07] LABS: MANUAL DIFF FLAG NO
[2023-11-16 16:37] LABS: Basophils Percent Auto 0.4 % (0-2); Eosinophils Absolute Auto 0.3 X10*3/uL (0.0-0.4); Hematocrit 42.6 % (37.0-47.0); Hemoglobin 13.8 g/dl (12.0-16.0); Imm Gran Abs Auto 0.03 X10*3/uL (0.00-0.03); Imm Gran Pct Auto 0.6 % (0.0-0.4); Lymphocytes Absolute Auto 1.3 X10*3/uL (1.2-4.9); Lymphocytes Percent Auto 24.4 % (20-40); Mean Corpuscular HGB Conc 32.4 g/dl (31.0-35.0); Mean Corpuscular Hemoglobin 29.6 pg (27.0-33.0); Mean Corpuscular Volume 91.2 fL (80.0-98.0); Mean Platelet Volume 11.4 fL (9.4-12.3); Monocytes Absolute Auto 0.6 X10*3/uL (0.1-1.2); Monocytes Percent Auto 11.5 % (2-11); Neutrophils Percent Auto 58.1 % (45-73); Platelet Count 195 X10*3/uL (160-400); Red Blood Count 4.67 X10*6/uL (4.20-5.50); Red Cell Distribution Width 13.5 % (11.0-16.0); White Blood Count 5.2 X10*3/uL (4.8-10.8)
[2023-11-16 16:54] LABS: Alanine Aminotransferase 23 U/L (0-31); Albumin Level 4.2 g/dL (3.5-5.0); Alkaline Phosphatase 130 U/L (39-117); Anion Gap 12 (12-20); Aspartate Amino Transferase 26 U/L (5-31); Bilirubin Total 0.7 mg/dL (0.0-1.0); Blood Urea Nitrogen 18 mg/dL (9-16); Calcium 9.8 mg/dL (8.4-10.2); Carbon Dioxide 28 mmol/L (22-29); Chloride 105 mmol/L (96-108); Estimated Glomerular Filt Rate > 60; Glucose Random 109 mg/dL (60-115); Potassium 3.2 mmol/L (3.3-5.1); Sodium 142 mmol/L (135-145); Total Protein 7.8 g/dL (6.5-8.0)
[2023-11-16 17:12] LABS: Ferritin 453 ng/mL (10-250); TSH reflex Free T4 0.96 uIU/mL (0.32-4.0)
[2023-11-16 17:57] LABS: Vitamin B12 487 pg/mL (200-900)
[2023-11-18 05:13] LABS: LDL Cholesterol Direct 53 mg/dL (<100)
[2023-11-21 15:49] LABS: Vitamin D 25-OH, D2 <4 ng/mL; Vitamin D 25-OH, D3 29 ng/mL; Vitamin D 25-OH, Total 29 ng/mL (30-100)
== END 2023-11-16 13:45 | disposition home or self-care (01) ==
LOC: HO.HMGCLDS 13:44
PROVIDERS: PCP Internal Medicine; Visit Provider Internal Medicine
DX: M35.00 Sjogren syndrome, unspecified (principal); I48.0 Paroxysmal atrial fibrillation; I10 Essential (primary) hypertension; R79.89 Other specified abnormal findings of blood chemistry; L93.0 Discoid lupus erythematosus; F41.1 Generalized anxiety disorder; Z91.09 Other allergy status, other than to drugs and biological substances
CPT/HCPCS: 36415; 80053; 82306; 82607; 82728; 83721; 84443; 85025

== ENCOUNTER 2023-11-26 14:29 | Outpatient (REF) | payer MEDICARE, OTHER, SELFPAY ==
[2023-11-26 16:26] LABS: Anion Gap 14 (12-20); Carbon Dioxide 25 mmol/L (22-29); Chloride 104 mmol/L (96-108); Potassium 3.9 mmol/L (3.3-5.1); Sodium 139 mmol/L (135-145)
== END 2023-11-26 14:30 | disposition home or self-care (01) ==
LOC: HO.HMGCLDS 14:29
PROVIDERS: PCP Internal Medicine; Visit Provider Internal Medicine
DX: E87.6 Hypokalemia (principal)
CPT/HCPCS: 36415; 80051

== ENCOUNTER 2023-12-15 08:21 | Day surgery (SDC) | payer MEDICARE, OTHER, SELFPAY ==
[2023-12-13 13:03] VITALS: BMI 23.9
--- NOTE | 2023-12-14 08:43 | HO.ANESPROP2 ---
HPI - Anesthesia Eval Consult details Narrative: 78yo F for Upper Endoscopy and Colonoscopy Eliquis for afib Cardiac optimized. Follows [facility] cardiology. Last office visit 11/2023. PMFSH Active Problems Active Problems: All Active Problems Hypokalemia (Acute) Family history of breast cancer (Acute) Dense breast tissue on mammogram (Acute) Anxiety, generalized (Acute) Elevated ferritin (Acute) Paroxysmal atrial fibrillation (Acute) Tired (Acute) Atrial fibrillation by electrocardiogram (Acute) Acute dyspnea (Acute) Low blood pressure (Acute) Suprapubic pain (Acute) Discoid lupus erythematosus (Acute) A-fib (Acute) Carotid artery stenosis (Acute) Shortness of breath (Acute) Anxiety (Acute) Chronic cardiac arrhythmia (Acute) Obstructive sleep apnea on CPAP (Acute) Asthma, mild (Acute) Hiatal hernia (Acute) Atrial septal defect (Acute) Sjogrens syndrome (Acute) YODIT positive (Acute) Allergic rhinitis (Acute) Environmental allergies (Acute) Hypertension, essential (Acute) Past Medical History Medical History (Updated 12/14/23 @ 08:45 by Sheeba Friedman NP) A-fib SOB (shortness of breath) History of cardioversion (~2021) Constipation Seasonal allergies Hiatal hernia Sclerosis of the skin Discoid lupus Eczema Obstructive sleep apnea on CPAP Asthma, mild Hiatal hernia Atrial septal defect Sjogrens syndrome YODIT positive Allergic rhinitis Environmental allergies Hypertension, essential Family History Family History (Updated 12/13/23 @ 13:02 by Rosemarie Conde, RN) Father CAD (coronary artery disease) Substance use disorder Mother Colon cancer Diabetes mellitus CAD (coronary artery disease) Kidney problem Breast cancer BRCA negative HTN (hypertension) Stroke PONV (postoperative nausea and vomiting) Sister HTN (hypertension) Maternal Grandmother Unknown family medical history Maternal Grandfather No problems noted. Paternal Grandfather No problems noted. Paternal Grandmother No problems noted. Maternal Aunt Breast cancer Brother No problems noted. Sister No problems noted. Surgical History Surgical History History of colonoscopy Social History Social History (Updated 12/13/23 @ 13:03 by Rosemarie Conde, RN) Household Members: Spouse Housing: House Are you a primary multi care technician to a significant other at home: No Do you presently have visiting nurse or other home services: No Alcohol intake: current Alcohol intake frequency: holidays/special occasions only Patient Tobacco Use Status: Never used Tobacco e-Cigarette/Vaping Use: Never Used Second Hand Smoke Exposure: Yes ( smokes) Use of substances other than those prescribed or required for medical reasons: No Have you been hit, kicked, punched, or otherwise hurt by someone within the past year? If so, by whom?: No Are you DNR?: No Advance Directives: No (will bring dos) Advance Directives Information Provided: No Advance Directives on File: No Nutrition Risks: Surgical patient >75years Poor oral hygiene: No Current occupational status: retired Cognitive needs: No Hearing needs: No Vision needs: No Meds Allergies Allergy/AdvReac Type Severity Reaction Status Date / Time amoxicillin Allergy Severe nausea Verified 12/13/23 12:43 headache dizzy weak bed ridden for 2 days albuterol Allergy Unknown Shortness Verified 12/13/23 12:50 of Breath OLIMPIA Inhibitors AdvReac Cough Verified 12/13/23 12:45 mepivocaine Allergy Severe dizziness, Uncoded 12/13/23 12:50 weak, nausea Home Medications ?Medication ?Instructions ?Recorded ?Confirmed ?Last Taken ?Type apixaban 5 mg tablet (Eliquis) 5 mg PO BID 08/09/20 12/13/23 12/11/23 History coenzyme Q10 [Co Q-10] 200 mg PO DAILY 08/09/20 12/13/23 Unknown History omega-3 fatty acids 1,000 mg 1,000 mg PO DAILY 08/09/20 12/13/23 12/07/23 History capsule (Fish Oil Concentrate) psyllium husk 0.4 gram capsule 0.4 g PO DAILY 08/09/20 11/16/23 Unknown History (Metamucil) triamcinolone acetonide 0.1 % appl topical BID 04/08/21 11/16/23 Unknown History topical cream acetaminophen 500 mg tablet 500 mg PO Q6H PRN Pain 08/12/21 12/13/23 Unknown History (Tylenol Extra Strength) fluocinolone 0.025 % topical cream appl topical 08/12/21 11/16/23 Unknown History clobetasol 0.05 % topical ointment g topical BID 10/14/22 11/16/23 Unknown History Metamucil PO BID 12/13/23 Unknown History cetirizine 10 mg capsule (Zyrtec) 10 mg PO DAILY PRN Allergy Symptoms 12/13/23 12/13/23 Unknown History cholecalciferol (vitamin D3) 25 25 mcg PO DAILY 12/13/23 12/13/23 Unknown History mcg (1,000 unit) capsule (Vitamin D3) ketotifen fumarate 0.025 % (0.035 1 drp ophthalmic (eye) Q8H 12/13/23 12/13/23 Unknown History %) eye drops ([place]) Exam Height,Weight and Vital Signs: Height 5 ft 6 in Weight 67.132 kg Pertinent Lab Results Pertinent Lab Results: Laboratory Tests 11/16/23 11/26/23 13:54 14:33 WBC 5.2 Hgb 13.8 Hct 42.6 Plt Count 195 Sodium 139 Potassium 3.9 D Chloride 104 Carbon Dioxide 25 BUN 18 H Creatinine 0.81 Narrative Narrative: EKG 09/2023 Afib old possible anteroseptal infarct ECHO 10/2023 LV size is nml. LV wall thickness is upper nml. LV systolic function is nml. LVEF 60-65%. No definite RWMA. Unable to assess diastolic function d/t afib. AV is trileaflet, mildly calcified. AV leaflet opening is mildly decreased. No . Mild AR. Moderate MAC. Mitral leaflets and subalvular apparatus appear mildly thickened. Mild to moderate MR. No signif stenosis. RV nml in size and function. Tricuspi valve appears nml. there is mild to moderate TR No significant pericardial effusion. Assessment and Plan Assessment Anesthesia Assessment: Chart Reviewed
--- NOTE | 2023-12-15 08:26 | HO.ANESPROP2 ---
[facility] Active Problems Active Problems: All Active Problems (Updated 12/14/23 @ 08:45 by Sheeba Friedman NP) Hypokalemia (Acute) Family history of breast cancer (Acute) Dense breast tissue on mammogram (Acute) Anxiety, generalized (Acute) Elevated ferritin (Acute) Paroxysmal atrial fibrillation (Acute) Tired (Acute) Atrial fibrillation by electrocardiogram (Acute) Acute dyspnea (Acute) Low blood pressure (Acute) Suprapubic pain (Acute) Discoid lupus erythematosus (Acute) Carotid artery stenosis (Acute) Shortness of breath (Acute) Anxiety (Acute) Chronic cardiac arrhythmia (Acute) Obstructive sleep apnea on CPAP (Acute) Asthma, mild (Acute) Hiatal hernia (Acute) Atrial septal defect (Acute) Sjogrens syndrome (Acute) YODIT positive (Acute) Allergic rhinitis (Acute) Environmental allergies (Acute) Hypertension, essential (Acute) Past Medical History Medical History A-fib SOB (shortness of breath) History of cardioversion (~2021) Constipation Seasonal allergies Hiatal hernia Sclerosis of the skin Discoid lupus Eczema Obstructive sleep apnea on CPAP Asthma, mild Hiatal hernia Atrial septal defect Sjogrens syndrome YODIT positive Allergic rhinitis Environmental allergies Hypertension, essential Family History Family History (Updated 12/13/23 @ 13:02 by Rosemarie Conde RN) Father CAD (coronary artery disease) Substance use disorder Mother Colon cancer Diabetes mellitus CAD (coronary artery disease) Kidney problem Breast cancer BRCA negative HTN (hypertension) Stroke PONV (postoperative nausea and vomiting) Sister HTN (hypertension) Maternal Grandmother Unknown family medical history Maternal Grandfather No problems noted. Paternal Grandfather No problems noted. Paternal Grandmother No problems noted. Maternal Aunt Breast cancer Brother No problems noted. Sister No problems noted. Family history of problems with anesthesia: No Surgical History Surgical History History of colonoscopy History of Problems with Anesthesia: No Social History Social History (Updated 12/13/23 @ 13:03 by Rosemarie Conde RN) Household Members: Spouse Housing: House Are you a primary urgent care physician assistant to a significant other at home: No Do you presently have visiting nurse or other home services: No Alcohol intake: current Alcohol intake frequency: holidays/special occasions only Patient Tobacco Use Status: Never used Tobacco e-Cigarette/Vaping Use: Never Used Second Hand Smoke Exposure: Yes ( smokes) Use of substances other than those prescribed or required for medical reasons: No Have you been hit, kicked, punched, or otherwise hurt by someone within the past year? If so, by whom?: No Are you DNR?: No Advance Directives: No Advance Directives Information Provided: Yes Advance Directives on File: No Nutrition Risks: Surgical patient >75years Poor oral hygiene: No Current occupational status: retired Cognitive needs: No Hearing needs: No Vision needs: No Meds Allergies Allergy/AdvReac Type Severity Reaction Status Date / Time amoxicillin Allergy Severe nausea Verified 12/13/23 12:43 headache dizzy weak bed ridden for 2 days albuterol Allergy Unknown Shortness Verified 12/13/23 12:50 of Breath OLIMPIA Inhibitors AdvReac Cough Verified 12/13/23 12:45 mepivocaine Allergy Severe dizziness, Uncoded 12/13/23 12:50 weak, nausea Active Medications: Current Medications Lactated Ringer's (Lr) 1,000 mls @ 100 mls/hr IVCONT .Q10H FRED Ondansetron HCl (Ondansetron Hcl 4 Mg/2 Ml Vial) 4 mg IVPUSH ONCE PRN PRN Reason: Nausea and Vomiting Stop: 12/15/23 13:23 Sodium Biphosphate/Sodium Phosphate (Sodium Phosphate,Payette-Dibasic 133 Ml Enema) 133 ml TX ONCE PRN PRN Reason: Poor Colonoscopy Prep Results Home Medications ?Medication ?Instructions ?Recorded ?Confirmed ?Last Taken ?Type apixaban 5 mg tablet (Eliquis) 5 mg PO BID 08/09/20 12/13/23 12/11/23 History coenzyme Q10 [Co Q-10] 200 mg PO DAILY 08/09/20 12/13/23 Unknown History omega-3 fatty acids 1,000 mg 1,000 mg PO DAILY 08/09/20 12/13/23 12/07/23 History capsule (Fish Oil Concentrate) psyllium husk 0.4 gram capsule 0.4 g PO DAILY 08/09/20 11/16/23 Unknown History (Metamucil) triamcinolone acetonide 0.1 % appl topical BID 04/08/21 11/16/23 Unknown History topical cream acetaminophen 500 mg tablet 500 mg PO Q6H PRN Pain 08/12/21 12/13/23 Unknown History (Tylenol Extra Strength) fluocinolone 0.025 % topical cream appl topical 08/12/21 11/16/23 Unknown History clobetasol 0.05 % topical ointment g topical BID 10/14/22 11/16/23 Unknown History Metamucil PO BID 12/13/23 Unknown History cetirizine 10 mg capsule (Zyrtec) 10 mg PO DAILY PRN Allergy Symptoms 12/13/23 12/13/23 Unknown History cholecalciferol (vitamin D3) 25 25 mcg PO DAILY 12/13/23 12/13/23 Unknown History mcg (1,000 unit) capsule (Vitamin D3) ketotifen fumarate 0.025 % (0.035 1 drp ophthalmic (eye) Q8H 12/13/23 12/13/23 Unknown History %) eye drops ([place]) Exam Height,Weight and Vital Signs: Height 5 ft 6 in Weight 67.132 kg Airway Mallampati Class: IV TM Dist: >3cm Neck ROM: Full Loose/Missing/Broken Teeth: No Heart: irr Lungs: clear Assessment and Plan Final Anesthetic Review Family History of Problems with Anesthesia: No History of Problems with Anesthesia: No NPO: Yes ASA Class: III Final Preanesthetic Review: No Changes in Pt Med Stat, Meds/Allgs Chart Reviewed, Consent Obtained/Reviewed and Anes Risks/Benef Reviewed Patient Risk: High Procedure Risk: Low Anesthetic Plan Anesthetic Plan: MAC: Disposition: Standard PACU
[2023-12-15 08:43] VITALS: BMI 25.2
[2023-12-15] MEDS: Lactated Ringers 1,000 ML 100 ML IVCONT (09:10)
[2023-12-15 09:11] VITALS: BP 155/81; PULSE 78; RESP 18; TEMP 35.9; O2SAT 100
[2023-12-15 10:44] VITALS: BP 156/101; PULSE 99; RESP 19; TEMP 36.2; O2SAT 98
--- NOTE | 2023-12-15 10:50 | P.BOP_ITS ---
Brief Operative Note Date of Service: 12/15/23 Pre-op diagnosis: GERD, Screening Post-op diagnosis: other (Hiatal hernia, Diverticulosis) Procedure: EGD, Colonoscopy to the cecum and TI Surgeon: Kaushik Lima MD Anesthesia: MAC Was an Automobile Service Station Manager used for this Procedure?: No Estimated blood loss (mL): 0 Pathology: none sent Condition: stable Disposition: PACU
[2023-12-15 11:01] VITALS: BP 167/90; PULSE 76; RESP 16; O2SAT 97
--- NOTE | 2023-12-15 11:08 | OP_ITS ---
DATE OF SERVICE: 12/15/2023 SURGEON: Kaushik Lima MD INDICATIONS: The patient presents for evaluation of underlying history of a hiatal hernia and some reflux, as well as colorectal cancer screening and family history of colon cancer. Full consent was obtained from her for this, including risks of bleeding and perforation. PREOPERATIVE DIAGNOSIS: POSTOPERATIVE DIAGNOSIS: PROCEDURE PERFORMED: ESTIMATED BLOOD LOSS: COMPLICATIONS: ANESTHESIA: Monitored anesthesia care. ASSISTANTS: SPECIMENS: PREOPERATIVE DIAGNOSES: Reflux and colorectal cancer screening. POSTOPERATIVE DIAGNOSES: Reflux and colorectal cancer screening, hiatal hernia, diverticulosis, internal hemorrhoids. PROCEDURES PERFORMED: Esophagogastroduodenoscopy and colonoscopy to the cecum and terminal ileum. DESCRIPTION OF PROCEDURE: The patient was placed in left decubitus position. The Olympus video gastroscope was passed in the posterior oropharynx and upper esophagus under direct vision. The scope was passed slowly into the distal esophagus. The gastroesophageal junction appeared at 36 cm. There was no sign of any Moore mucosa nor esophagitis. The scope entered the stomach. There was a small hiatal hernia. The hiatal hernia mucosa appeared normal. The scope was advanced to the pylorus and the duodenum was cannulated to the descending portion. The duodenum including the bulb appeared normal without mass or ulceration. The scope was withdrawn back in the stomach. The gastric antrum had some minimal areas of erythema, but no erosions or ulceration. There was good peristalsis. The scope was retroflexed visualizing the proximal stomach carefully, which appeared normal, without any sign of mass or ulceration. The scope was straightened and withdrawn back to the esophagus. The esophageal mucosa appeared normal. The scope was withdrawn from the patient. She was turned around for the colonoscopy. The digital rectal exam revealed no abnormalities. The Olympus video pediatric colonoscope was entered into the rectum and advanced to the cecum. Advancement past the sigmoid colon was somewhat difficult due to diverticular disease. Once in the cecum, I did identify normal-appearing cecal pouch with appendiceal orifice and a normal-appearing ileocecal valve. The terminal ileum was cannulated and appeared normal. The scope was withdrawn back in the colon. There was transillumination of light deep in the right lower quadrant. The entire cecum and ileocecal valve appeared normal. The scope was slowly withdrawn assessing all mucosal surfaces carefully. Preparation was excellent. I did not visualize any sign of polyps, colitis, or angiodysplasia. There was a moderate amount of sigmoid diverticulosis. In the rectum, scope was retroflexed visualizing internal hemorrhoids, but no other pathology. The rectal mucosa appeared normal. The scope was straightened and withdrawn from the patient. She tolerated the procedures well and was returned to recovery area in stable condition. IMPRESSION: 1. Hiatal hernia. 2. Diverticulosis. 3. Internal hemorrhoids. PLAN: At this point, the patient will see me on a p.r.n. basis. Given her age and these findings, I do not think she will need any further screening colonoscopies. I did not find any upper GI tract findings that would account for her complaint of some increased mucus in the oropharyngeal area. She was advised to resume her Eliquis and fish oil today. MD CHERI Dailey/LINH / [phone]
[2023-12-15 11:16] VITALS: BP 148/68; PULSE 77; RESP 14; TEMP 36.6; O2SAT 98
--- NOTE | 2023-12-15 16:59 | PC.NURSE ---
24 hour physician preop assessment/exam documented on paper.
== END 2023-12-15 11:59 | disposition home or self-care (01) ==
PROVIDERS: PCP Internal Medicine; Visit Provider Internal Medicine
PROC: (CPT 43235; principal; 2023-12-15 09:50)
DX: Z12.11 Encounter for screening for malignant neoplasm of colon (principal); Z80.0 Family history of malignant neoplasm of digestive organs; K57.30 Diverticulosis of large intestine without perforation or abscess without bleeding; K64.8 Other hemorrhoids; K21.9 Gastro-esophageal reflux disease without esophagitis; K44.9 Diaphragmatic hernia without obstruction or gangrene; I10 Essential (primary) hypertension; J45.909 Unspecified asthma, uncomplicated; I48.91 Unspecified atrial fibrillation; Z79.01 Long term (current) use of anticoagulants; Z79.899 Other long term (current) drug therapy
CPT/HCPCS: 43235; G0105; J2704

== ENCOUNTER 2024-03-14 12:18 | Outpatient (AMB) | payer MEDICARE, OTHER, SELFPAY ==
--- NOTE | 2024-03-14 12:35 | A.OFFPC_ITS ---
Vital Signs 03/14/24 12:37 Height 5 ft 6 in Weight 157 lb BMI 25.3 BP 128/80 Blood Pressure Location Rt brachial Position Sitting Pulse 65 Pulse Source Pulse Oximeter Pulse Oximetry (%) 99 Oxygen Delivery Method Room Air Intake Visit Reasons: Annual PE/covered by [facility] Allergies amoxicillin Allergy (Severe, Verified 03/14/24 12:37) nausea headache dizzy weak bed ridden for 2 days albuterol Allergy (Unknown, Verified 03/14/24 12:37) Shortness of Breath OLIMPIA Inhibitors Adverse Reaction (Verified 03/14/24 12:37) Cough mepivocaine Allergy (Severe, Uncoded 03/14/24 12:37) dizziness, weak, nausea Medication List - Last Reconciled 03/14/24 by Bola Carroll MD acetaminophen (Tylenol Extra Strength) 500 mg PO Q6H PRN amlodipine 2.5 mg PO DAILY apixaban (Eliquis) 5 mg PO BID atorvastatin 10 mg PO DAILY cetirizine (Zyrtec) 10 mg PO DAILY PRN cholecalciferol (vitamin D3) (Vitamin D3) 25 mcg PO DAILY clobetasol 0.05% grams topical BID coenzyme Q10 (Co Q-10) 200 mg PO DAILY escitalopram oxalate 5 mg PO DAILY 90 days fluocinolone 0.025% appl topical ketotifen fumarate 0.025%(0.035%) ([place]) 1 drp ophthalmic (eye) Q8H losartan 50 mg PO BID 90 days [Metamucil PO BID] metoprolol succinate ER 25 mg PO DAILY 90 days omega-3 fatty acids (Fish Oil Concentrate) 1,000 mg PO DAILY psyllium husk (Metamucil) 0.4 grams PO DAILY triamcinolone acetonide 0.1% appl topical BID Tobacco use date assessed: 03/14/24 Fall risk assessment: No Falls in past year Last assessed Fall Risk: 03/14/24 Dental Screening Dental Screen Date: 03/14/24 Did you have a dental visit in the last 12 months?: Yes Did you have a dental problem in the last 6 months where you did not have access to dental care?: No Was dental information given to patient?: Patient has dentist HPI Annual PE/covered by [facility] HPI Details Patient is 79-year-old female came in today physical exam Last time she had labs her iron level was elevated We need to repeat labs again Hypertension:? Blood pressure is stable, patient is taking? losartan 50 mg and metoprolol succinate 25 mg for paroxysmal atrial fibrillation.? ? Hiatal hernia: Patient is taking Pepcid [id number] and diet-controlled Block Setter Gypsum is? Dr. Zamora, patient is seeing him for atrial fibrillation, patient is on Eliquis She is also on atorvastatin for lipid control Allergies: Continue Zyrtec Anxiety disorder:? Continue Lexapro 5 mg Other providers patient is [facility], Dr Zamora , patient continued to be in atrial fibrillation and her shortness of breath is getting worse Dr [facility] has evaluated patient for shortness of breath and was told that it is more likely from her heart [had pulmonary function test, was told it was fine] Derm Dr Brenda Cabezas , descoid lupus Dr. 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 [facility] Medical History A-fib SOB (shortness of breath) History of cardioversion (~2021) Constipation Seasonal allergies Hiatal hernia Sclerosis of the skin Discoid lupus Eczema Obstructive sleep apnea on CPAP Asthma, mild Hiatal hernia Atrial septal defect Sjogrens syndrome YODIT positive Allergic rhinitis Environmental allergies Hypertension, essential Surgical History History of colonoscopy Family History Father CAD (coronary artery disease) Substance use disorder Mother Colon cancer Diabetes mellitus CAD (coronary artery disease) Kidney problem Breast cancer BRCA negative HTN (hypertension) Stroke PONV (postoperative nausea and vomiting) Sister HTN (hypertension) Maternal Grandmother Unknown family medical history Maternal Grandfather No problems noted. Paternal Grandfather No problems noted. Paternal Grandmother No problems noted. Maternal Aunt Breast cancer Brother No problems noted. Sister No problems noted. Social History Household Members: Spouse Housing: House Are you a primary child care development specialist to a significant other at home: No Do you presently have visiting nurse or other home services: No Alcohol intake: current Alcohol intake frequency: holidays/special occasions only Patient Tobacco Use Status: Never used Tobacco e-Cigarette/Vaping Use: Never Used Second Hand Smoke Exposure: Yes ( smokes) Current occupational status: retired Cognitive needs: No Hearing needs: No Vision needs: No Questionnaire PHQ-9 Over the last 2 weeks, how often have you been bothered by any of the following problems? 1. Little interest or pleasure in doing things: not at all 2. Feeling down, depressed, or hopeless: not at all 3. Trouble falling or staying asleep, or sleeping too much: not at all 4. Feeling tired or having little energy: not at all 5. Poor appetite or overeating: not at all 6. Feeling bad about yourself - or that you are a failure or have let yourself or your family down: not at all 7. Trouble concentrating on things, such as reading the newspaper or watching television: not at all 8. Moving or speaking so slowly that other people could have noticed. Or the opposite - being so fidgety or restless that you have been moving around a lot more than usual: not at all 9. Thoughts that you would be better off or of hurting yourself in some way: not at all Total score: 0 Depression Screening Interpretation: Negative Depression Screening Done: Yes 35083 - PHQ-9 Billing: Yes Source: Developed by Drs. Kaushik Simons, Lizzette Shirley, Arnav Pritchard and colleagues, with an educational romina from [employer]. Thrive Questionnaire Date Thrive assessed: 03/14/24 I am a: Patient What is your living situation today?: I have a steady place to live Within the past 12 months, did the food you bought not last and you didn't have the money to get more?: Never true Within the past 12 months, did you worry whether your food would run out before you got money to buy more?: Never true Do you have trouble paying for medicines?: No Do you have trouble getting transportation to medical appointments?: No Do you have trouble paying your heating and electricity bill?: No Do you have trouble taking care of your child, family member or friend?: No Are you currently unemployed and looking for a job?: No Are you interested in more education?: No THRIVE Score: 0 AUDIT C Alcohol Use Questionnaire (AUDIT-C) 1. How often do you have a drink containing alcohol?: Monthly or less 2. How many drinks containing alcohol do you have on a typical day when you are drinking?: 1 or 2 3. How often do you have six or more drinks on one occasion?: Never Total Score: 1 MELISA-7 AMB Questionnaire MELISA-7 Date MELISA - 7 assessed: 03/14/24 Feeling nervous, anxious, or on edge: 0 = Not at all Not being able to stop or control worryin = Not at all Worrying too much about different things: 0 = Not at all Trouble relaxin = Not at all Being so restless that it is hard to sit still: 0 = Not at all Becoming easily annoyed or irritable: 0 = Not at all Feeling afraid as if something awful might happen: 0 = Not at all Total MELISA-7 score (0-4 normal; 5-9 mild; 10-14 moderate; 15-21 severe): 0 Source: Developed by Drs. Kaushik Simons, Lizzette Shirley, Arnav Pritchard and colleagues, with an educational romina from [employer]. Review of Systems Const Denies chills, Denies fever(s) and Denies headache(s) Eyes Denies blurry vision ENT Denies headache(s), Denies nasal discharge, Denies nasal obstruction, Denies odynophagia and Denies sinus pain Card Denies chest pain at rest and Denies chest pain with activity Resp Denies cough and Denies hemoptysis GI Denies diarrhea, Denies odynophagia, Denies vomiting and Denies hematemesis Reports as per HPI Musc Denies abnormal gait Skin/Breast Reports as per HPI Neuro Denies Neuro-related abnormal movements, Denies Abnormal speech present, Denies abnormal gait, Denies headache(s) and Denies Sensory deficit (Neuro) Psych Denies mood swings and Denies paranoia Endo Reports as per HPI Triston/Lymph Reports as per HPI Aller/Immun Reports as per HPI Physical exam (Primary Care) Vital Signs: Last Vital Signs Pulse 65 03/14/24 12:37 BP 128/80 03/14/24 12:37 Pulse Ox 99 03/14/24 12:37 Oxygen Delivery Method Room Air 03/14/24 12:37 BMI result Body Mass Index 25.3 Tobacco/Smoking Status: Tobacco use Status Tobacco use date assessed 03/14/24 03/14/24 12:38 Patient Tobacco Use Status Never used Tobacco 03/14/24 12:37 e-Cigarette/Vaping Use Never Used 03/14/24 12:37 PHQ-9: PHQ-9 Score PHQ-9: Total score 0 03/14/24 13:12 Depression Screening Interpretation: Negative Thrive Assessment: Date of Thrive Assessment Date Thrive assessed 03/14/24 03/14/24 12:42 Const General: cooperative, comfortable and no acute distress Orientation/consciousness: patient oriented x3 HENMT Head: Yes normocephalic and Yes atraumatic Eyes General: appearance normal, both eyes and all related structures Pupils: Equal, round and reactive pupils present EOM: EOMs intact bilaterally Neck Neck: Yes supple and No lymphadenopathy Thyroid: Thyroid normal Lymphatic: no lymphadenopathy noted Chest Breast/axilla palpation: normal palpation of the breasts Resp Effort & Inspection: normal respiratory effort and able to speak in complete sentences Auscultation: clear to auscultation bilaterally Cardio Heart sounds: S1 normal heart sound present and S2 normal heart sound present GI Palpation (GI): Soft to palpation and nontender Auscultation: normal bowel sounds General: Yes no CVA tenderness Back/Spine/Pelvis Back: no CVA tenderness Skin General skin exam: elasticity normal and turgor normal Neuro General: patient oriented x3 and gait normal Cranial nerves: Yes Equal, round and reactive pupils present Speech: No Abnormal speech present Sensory Exam: No Sensory deficit (Neuro) Coordination: Romberg test negative Extrem General: Yes normal exam except as noted and No edema Assessment and Plan Assessment & Plan (1) Annual physical exam: Code(s): Z00.00 - Encounter for general adult medical examination without abnormal findings (2) Elevated ferritin: Code(s): R79.89 - Other specified abnormal findings of blood chemistry (3) Paroxysmal atrial fibrillation: Code(s): I48.0 - Paroxysmal atrial fibrillation (4) Discoid lupus erythematosus: Code(s): L93.0 - Discoid lupus erythematosus (5) Sjogrens syndrome: Code(s): M35.00 - Sjogren syndrome, unspecified Qualifiers: Sjogren organ or system involvement: unspecified organ involvement Qualified Code(s): M35.00 - Sjogren syndrome, unspecified (6) Environmental allergies: Code(s): Z91.09 - Other allergy status, other than to drugs and biological substances (7) Hypertension, essential: Code(s): I10 - Essential (primary) hypertension Plan Patient is 79-year-old female came in today physical exam Last time she had labs her iron level was elevated We need to repeat labs again Hypertension:? Blood pressure is stable, patient is taking? losartan 50 mg and metoprolol succinate 25 mg for paroxysmal atrial fibrillation.? ? Hiatal hernia: Patient is taking Pepcid [id number] and diet-controlled Block Setter Gypsum is? Dr. Zamora, patient is seeing him for atrial fibrillation, patient is on Eliquis She is also on atorvastatin for lipid control Allergies: Continue Zyrtec Anxiety disorder:? Continue Lexapro 5 mg Other providers patient is seeing are [facility], Dr Zamora , patient continued to be in atrial fibrillation and her shortness of breath is getting worse Dr [facility] has evaluated patient for shortness of breath and was told that it is more likely from her heart [had pulmonary function test, was told it was fine] Derm Dr Brenda Cabezas , descoid lupus Dr. 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 Orders: Orders 2 Hemoglobin A1c Today I10 - Essential (primary) hypertension, I48.0 - Paroxysmal atrial fibrillation, L93.0 - Discoid lupus erythematosus, M35.00 - Sjogren syndrome, unspecified, R79.89 - Other specified abnormal findings of blood chemistry, Z00.00 - Encounter for general adult medical examination without abnormal findings, Z91.09 - Other allergy status, other than to drugs and biological substances Complete Blood Count Auto Diff Today I10 - Essential (primary) hypertension, I48.0 - Paroxysmal atrial fibrillation, L93.0 - Discoid lupus erythematosus, M35.00 - Sjogren syndrome, unspecified, R79.89 - Other specified abnormal findings of blood chemistry, Z00.00 - Encounter for general adult medical examination without abnormal findings, Z91.09 - Other allergy status, other than to drugs and biological substances Vitamin B12 Today I10 - Essential (primary) hypertension, I48.0 - Paroxysmal atrial fibrillation, L93.0 - Discoid lupus erythematosus, M35.00 - Sjogren syndrome, unspecified, R79.89 - Other specified abnormal findings of blood chemistry, Z00.00 - Encounter for general adult medical examination without abnormal findings, Z91.09 - Other allergy status, other than to drugs and biological substances Comprehensive [place]. Panel Fast Today I10 - Essential (primary) hypertension, I48.0 - Paroxysmal atrial fibrillation, L93.0 - Discoid lupus erythematosus, M35.00 - Sjogren syndrome, unspecified, R79.89 - Other specified abnormal findings of blood chemistry, Z00.00 - Encounter for general adult medical examination without abnormal findings, Z91.09 - Other allergy status, other than to drugs and biological substances TSH reflex Free T4 Today I10 - Essential (primary) hypertension, I48.0 - Paroxysmal atrial fibrillation, L93.0 - Discoid lupus erythematosus, M35.00 - Sjogren syndrome, unspecified, R79.89 - Other specified abnormal findings of blood chemistry, Z00.00 - Encounter for general adult medical examination without abnormal findings, Z91.09 - Other allergy status, other than to drugs and biological substances Lipid Panel Today I10 - Essential (primary) hypertension, I48.0 - Paroxysmal atrial fibrillation, L93.0 - Discoid lupus erythematosus, M35.00 - Sjogren syndrome, unspecified, R79.89 - Other specified abnormal findings of blood chemistry, Z00.00 - Encounter for general adult medical examination without abnormal findings, Z91.09 - Other allergy status, other than to drugs and biological substances Vitamin D 25-OH (D2 and D3) Today I10 - Essential (primary) hypertension, I48.0 - Paroxysmal atrial fibrillation, L93.0 - Discoid lupus erythematosus, M35.00 - Sjogren syndrome, unspecified, R79.89 - Other specified abnormal findings of blood chemistry, Z00.00 - Encounter for general adult medical examination without abnormal findings, Z91.09 - Other allergy status, other than to drugs and biological substances Ferritin Today I10 - Essential (primary) hypertension, I48.0 - Paroxysmal atrial fibrillation, L93.0 - Discoid lupus erythematosus, M35.00 - Sjogren syndrome, unspecified, R79.89 - Other specified abnormal findings of blood chemistry, Z00.00 - Encounter for general adult medical examination without abnormal findings, Z91.09 - Other allergy status, other than to drugs and biological substances Coding Level of Care Code Est Pt Prev Care >65y(15195) Diagnoses Annual physical exam Z00.00 Elevated ferritin R79.89 Paroxysmal atrial fibrillation I48.0 Discoid lupus erythematosus L93.0 Sjogren's syndrome, with unspecified organ involvement M35.00 Sjogren organ or system involvement: unspecified organ involvement Environmental allergies Z91.09 Hypertension, essential I10
[2024-03-14 12:37] VITALS: BP 128/80; PULSE 65; O2SAT 99; BMI 25.3
== END 2024-03-14 13:10 | disposition home or self-care (01) ==
LOC: HO.HMGC 12:18
PROVIDERS: PCP Internal Medicine; Visit Provider Internal Medicine
DX: Z00.00 Encounter for general adult medical examination without abnormal findings (principal); I48.0 Paroxysmal atrial fibrillation; M35.00 Sjogren syndrome, unspecified; R79.89 Other specified abnormal findings of blood chemistry; L93.0 Discoid lupus erythematosus; Z91.09 Other allergy status, other than to drugs and biological substances; I10 Essential (primary) hypertension
CPT/HCPCS: 99397

== ENCOUNTER 2024-03-15 10:17 | Outpatient (REF) | payer MEDICARE, OTHER, SELFPAY ==
[2024-03-15 13:10] LABS: MANUAL DIFF FLAG NO
[2024-03-15 13:32] LABS: Basophils Percent Auto 0.7 % (0-2); Eosinophils Absolute Auto 0.2 X10*3/uL (0.0-0.4); Eosinophils Percent Auto 5.3 % (0-4); Hemoglobin 13.8 g/dl (12.0-16.0); Imm Gran Abs Auto 0.02 X10*3/uL (0.00-0.03); Imm Gran Pct Auto 0.4 % (0.0-0.4); Lymphocytes Absolute Auto 1.3 X10*3/uL (1.2-4.9); Lymphocytes Percent Auto 28.3 % (20-40); Mean Corpuscular HGB Conc 32.9 g/dl (31.0-35.0); Mean Corpuscular Hemoglobin 30.3 pg (27.0-33.0); Mean Corpuscular Volume 92.3 fL (80.0-98.0); Mean Platelet Volume 11.1 fL (9.4-12.3); Monocytes Absolute Auto 0.5 X10*3/uL (0.1-1.2); Monocytes Percent Auto 11.7 % (2-11); Neutrophils Absolute Auto 2.4 x10*3/uL (2.0-8.3); Neutrophils Percent Auto 53.6 % (45-73); Platelet Count 186 X10*3/uL (160-400); Red Blood Count 4.55 X10*6/uL (4.20-5.50); White Blood Count 4.5 X10*3/uL (4.8-10.8)
[2024-03-15 13:43] LABS: Estimated Average Glucose 111 mg/dL; Hemoglobin A1c % 5.5 % (<6.0)
[2024-03-15 13:58] LABS: Alanine Aminotransferase 24 U/L (0-31); Albumin Level 4.3 g/dL (3.5-5.0); Alkaline Phosphatase 117 U/L (39-117); Anion Gap 12 (12-20); Aspartate Amino Transferase 29 U/L (5-31); Bilirubin Total 0.8 mg/dL (0.0-1.0); Blood Urea Nitrogen 16 mg/dL (9-16); Calcium 9.7 mg/dL (8.4-10.2); Carbon Dioxide 28 mmol/L (22-29); Chloride 107 mmol/L (96-108); Cholesterol 116 mg/dL (<200); Estimated Glomerular Filt Rate > 60; Ferritin 436 ng/mL (10-250); Glucose Fasting 90 mg/dL (60-99); HDL Cholesterol 45 mg/dL (>40); LDL Cholesterol Calculated 53 mg/dL (<100); Potassium 4.4 mmol/L (3.3-5.1); Sodium 143 mmol/L (135-145); Total Protein 7.5 g/dL (6.5-8.0); Triglycerides 92 mg/dL (<150)
[2024-03-15 14:24] LABS: Vitamin B12 457 pg/mL (200-900)
[2024-03-19 16:48] LABS: Vitamin D 25-OH, D2 <4 ng/mL; Vitamin D 25-OH, D3 33 ng/mL; Vitamin D 25-OH, Total 33 ng/mL (30-100)
== END 2024-03-15 10:18 | disposition home or self-care (01) ==
LOC: HO.HMGCLDS 10:17
PROVIDERS: PCP Internal Medicine; Visit Provider Internal Medicine
DX: Z00.00 Encounter for general adult medical examination without abnormal findings (principal); R79.89 Other specified abnormal findings of blood chemistry; I48.0 Paroxysmal atrial fibrillation; L93.0 Discoid lupus erythematosus; M35.00 Sjogren syndrome, unspecified; Z91.09 Other allergy status, other than to drugs and biological substances; I10 Essential (primary) hypertension
CPT/HCPCS: 36415; 80053; 80061; 82306; 82607; 82728; 83036; 84443; 85025

== ENCOUNTER 2024-08-02 12:32 | Outpatient (AMB) | payer MEDICARE, OTHER, SELFPAY ==
[2024-08-02 12:34] VITALS: BP 130/84; PULSE 73; O2SAT 98; BMI 25.7
--- NOTE | 2024-08-02 12:37 | A.OFFPC_ITS ---
Vital Signs 08/02/24 12:34 Height 5 ft 6 in Weight 159 lb 4 oz BMI 25.7 BP 130/84 Blood Pressure Location Rt brachial Position Sitting Pulse 73 Pulse Source Pulse Oximeter Pulse Oximetry (%) 98 Oxygen Delivery Method Room Air Intake Visit Reasons: Cataract lt eye 08/17, rt eye 09/14/24 Allergies amoxicillin Allergy (Severe, Verified 08/02/24 12:37) nausea headache dizzy weak bed ridden for 2 days albuterol Allergy (Unknown, Verified 08/02/24 12:37) Shortness of Breath OLIMPIA Inhibitors Adverse Reaction (Verified 08/02/24 12:37) Cough mepivocaine Allergy (Severe, Uncoded 08/02/24 12:37) dizziness, weak, nausea Medication List - Last Reconciled 08/02/24 by Bola Carroll MD acetaminophen (Tylenol Extra Strength) 500 mg PO Q6H PRN amlodipine 2.5 mg PO DAILY apixaban (Eliquis) 5 mg PO BID atorvastatin 10 mg PO DAILY cetirizine (Zyrtec) 10 mg PO DAILY PRN cholecalciferol (vitamin D3) (Vitamin D3) 25 mcg PO DAILY clobetasol 0.05% grams topical BID coenzyme Q10 (Co Q-10) 200 mg PO DAILY escitalopram oxalate 5 mg PO DAILY 90 days fluocinolone 0.025% appl topical ketotifen fumarate 0.025%(0.035%) (Alaway) 1 drp ophthalmic (eye) Q8H losartan 50 mg PO BID 90 days [Metamucil PO BID] metoprolol succinate ER 25 mg PO DAILY 90 days omega-3 fatty acids (Fish Oil Concentrate) 1,000 mg PO DAILY psyllium husk (Metamucil) 0.4 grams PO DAILY triamcinolone acetonide 0.1% appl topical BID Tobacco use date assessed: 08/02/24 Fall risk assessment: No Falls in past year Dental Screening Dental Screen Date: 08/02/24 Did you have a dental visit in the last 12 months?: Yes Did you have a dental problem in the last 6 months where you did not have access to dental care?: No Was dental information given to patient?: Patient has dentist HPI Cataract lt eye 08/17, rt eye 09/14/24 HPI0 Details Chief Complaint Patient is concerned about managing her systemic lupus erythematosus and is seeking advice on medication management, in addition to discussing pre-surgical evaluation for an upcoming cataract surgery. Pt is having surgery at [facility] Phone:? tel: Fax:? Assessment and Plan 1. Cataracts Patient is scheduled for cataract surgery on the left eye on August 17 at [facility]. The right eye surgery is planned for September 14. Pre-operative labs indicate no contraindications. 2. Hypertension Patient has been advised by her nurse practitioner hospitalist to consider spironolactone to manage hypertension. Initiation of spironolactone recommended before hydroxychloroquine, with ongoing monitoring for side effects. 3. Elevated Iron Levels Iron levels are elevated, possibly due to inflammation. Previous testing for hemochromatosis was negative. It is suggested to check ferritin and iron levels during future lab tests every six months. 4. Shortness Of Breath Initiate spironolactone as prescribed by nurse practitioner hospitalist, Dr. Zamora. Avoid starting multiple new medications simultaneously to monitor for side effects effectively. 5. Systemic/discoid Lupus Erythematosus The patient is advised to continue using clobetasol cream for her skin lupus flare-ups. Hydroxychloroquine has been recommended by her baggage and mail agent, and should be started if flare-ups persist despite current treatment. Regular monitoring for side effects of hydroxychloroquine will be necessary. 6- paroxysmal atrial fibrillation manage d by Cardiology, [facility], last visit for yesterday, nurse practitioner hospitalist is aware that patient is going in for cataract surgery At this point cardiac status is stable 7-obstructive sleep apnea stable with CP AP managed by sleep specialist 8-allergies stable at this time Problem List - Systemic Lupus Erythematosus - Cataracts - Elevated Iron Levels - Hypertension - Shortness of Breat - sleep apnea on CPAP - allergies stable Patient Instructions - Start spironolactone first, monitoring for any side effects within the first few days. - Continue to use clobetasol topical cre am for lupus flare-ups. - Consider starting hydroxychloroquine i f lupus symptoms persist after current treatment. - Follow-up with routine lab tests inclu ding ferritin and iron every six months. - Attend scheduled cataract surgeries an d inform regarding any change in health status. - Maintain records of vaccines and revie w adherence to CPAP therapy for sleep apnea. - Update me with any significant changes in health or medication responses before the next scheduled visit Patient is stable for cataract surgery [facility] Medical History A-fib SOB (shortness of breath) History of cardioversion (~2021) Constipation Seasonal allergies Hiatal hernia Sclerosis of the skin Discoid lupus Eczema Obstructive sleep apnea on CPAP Asthma, mild Hiatal hernia Atrial septal defect Sjogrens syndrome YODIT positive Allergic rhinitis Environmental allergies Hypertension, essential Surgical History History of colonoscopy Family History Father CAD (coronary artery disease) Substance use disorder Mother Colon cancer Diabetes mellitus CAD (coronary artery disease) Kidney problem Breast cancer BRCA negative HTN (hypertension) Stroke PONV (postoperative nausea and vomiting) Sister HTN (hypertension) Maternal Grandmother Unknown family medical history Maternal Grandfather No problems noted. Paternal Grandfather No problems noted. Paternal Grandmother No problems noted. Maternal Aunt Breast cancer Brother No problems noted. Sister No problems noted. Social History Household Members: Spouse Housing: House Are you a primary health care technician to a significant other at home: No Do you presently have visiting nurse or other home services: No Alcohol intake: current Alcohol intake frequency: holidays/special occasions only Patient Tobacco Use Status: Never used Tobacco e-Cigarette/Vaping Use: Never Used Second Hand Smoke Exposure: Yes ( smokes) Current occupational status: retired Cognitive needs: No Hearing needs: No Vision needs: No Questionnaire Thrive Questionnaire Date Thrive assessed: 03/14/24 I am a: Patient What is your living situation today?: I choose not to answer this question Within the past 12 months, did the food you bought not last and you didn't have the money to get more?: I choose not to answer this question Within the past 12 months, did you worry whether your food would run out before you got money to buy more?: I choose not to answer this question Do you have trouble paying for medicines?: I choose not to answer this question Do you have trouble getting transportation to medical appointments?: I choose not to answer this question Do you have trouble paying your heating and electricity bill?: I choose not to answer this question Do you have trouble taking care of your child, family member or friend?: I choose not to answer this question Do you have trouble with day-to-day activities such as bathing, preparing meals, shopping, managing finances, etc.?: I choose not to answer this question Are you currently unemployed and looking for a job?: I choose not to answer this question Are you interested in more education?: I choose not to answer this question Please select the resources that you would like help with: None Currently or been in a relationship where the following occur: I choose not to answer THRIVE Score: 0 AUDIT C Alcohol Use Questionnaire (AUDIT-C) 1. How often do you have a drink containing alcohol?: Never Total Score: 0 MELISA-7 AMB Questionnaire MELISA-7 Date MELISA - 7 assessed: 03/14/24 Feeling nervous, anxious, or on edge: 1 = Several days Not being able to stop or control worryin = Not at all Worrying too much about different things: 1 = Several days Trouble relaxin = Not at all Being so restless that it is hard to sit still: 0 = Not at all Becoming easily annoyed or irritable: 0 = Not at all Feeling afraid as if something awful might happen: 0 = Not at all Total MELISA-7 score (0-4 normal; 5-9 mild; 10-14 moderate; 15-21 severe): 2 Source: Developed by Drs. Kaushik Simons, Lizzette Shirley, Arnav Pritchard and colleagues, with an educational romina from [employer]. Review of Systems Const Denies chills and Denies fever(s) ENT Denies epistaxis and Denies nasal discharge Card Denies chest pain Resp Denies chest congestion, Denies cough and Denies hemoptysis GI Denies diarrhea and Denies nausea Neuro Reports no additional complaints Psych Reports no additional complaints Endo Reports no additional complaints Physical exam (Primary Care) Vital Signs: Last Vital Signs Pulse 73 08/02/24 12:34 BP 130/84 08/02/24 12:34 Pulse Ox 98 08/02/24 12:34 Oxygen Delivery Method Room Air 08/02/24 12:34 BMI result Body Mass Index 25.7 Tobacco/Smoking Status: Tobacco use Status Tobacco use date assessed 08/02/24 08/02/24 12:37 Patient Tobacco Use Status Never used Tobacco 08/02/24 12:37 e-Cigarette/Vaping Use Never Used 08/02/24 12:37 Thrive Assessment: Date of Thrive Assessment Date Thrive assessed 03/14/24 08/02/24 12:37 Currently or been in a relationship where the following occur: I choose not to answer Const General: cooperative, comfortable and no acute distress Orientation/consciousness: patient oriented x3 HENMT Head: Yes normocephalic Eyes General: appearance normal, both eyes and all related structures Neck Neck: Yes supple Resp Effort & Inspection: normal respiratory effort, no cough and no stridor Cardio Heart sounds: S1 normal heart sound present and S2 normal heart sound present Skin Other: Facial rash prominent General skin exam: turgor normal Neuro General: patient oriented x3, tone normal and moves all extremities Extrem Right lower extremity: no edema Left lower extremity: no edema Coding Level of Care Code Est Pt Level 5 (08214) Diagnoses Pre-op evaluation Z01.818 Other cataract of both eyes H26.8 Cataract type: other Laterality: bilateral Discoid lupus erythematosus L93.0 Paroxysmal atrial fibrillation I48.0 Elevated ferritin R79.89 Shortness of breath R06.02 Obstructive sleep apnea on CPAP G47.33; Z99.89 Sjogren's syndrome, with unspecified organ involvement M35.00 Sjogren organ or system involvement: unspecified organ involvement Environmental allergies Z91.09 Hypertension, essential I10 Assessment & Plan Assessment & Plan (1) Pre-op evaluation: Code(s): Z01.818 - Encounter for other preprocedural examination Category: Medical (2) Cataract: Code(s): H26.9 - Unspecified cataract Category: Medical Qualifiers: Cataract type: other Laterality: bilateral Qualified Code(s): H26.8 - Other specified cataract (3) Discoid lupus erythematosus: Code(s): L93.0 - Discoid lupus erythematosus Category: Medical (4) Paroxysmal atrial fibrillation: Code(s): I48.0 - Paroxysmal atrial fibrillation Category: Medical (5) Elevated ferritin: Code(s): R79.89 - Other specified abnormal findings of blood chemistry Category: Medical (6) Shortness of breath: Code(s): R06.02 - Shortness of breath Category: Medical (7) Obstructive sleep apnea on CPAP: Code(s): G47.33 - Obstructive sleep apnea (adult) (pediatric); Z99.89 - Dependence on other enabling machines and devices Category: Medical (8) Sjogrens syndrome: Code(s): M35.00 - Sjogren syndrome, unspecified Category: Medical Qualifiers: Sjogren organ or system involvement: unspecified organ involvement Qualified Code(s): M35.00 - Sjogren syndrome, unspecified (9) Environmental allergies: Code(s): Z91.09 - Other allergy status, other than to drugs and biological substances Category: Medical (10) Hypertension, essential: Code(s): I10 - Essential (primary) hypertension Category: Medical Plan Chief Complaint Patient is concerned about managing her systemic lupus erythematosus and is seeking advice on medication management, in addition to discussing pre-surgical evaluation for an upcoming cataract surgery. Assessment and Plan Recent labs done by Dermatology office reviewed July of this year, white count within normal limit, no anemia, kidney functions intact alkaline phosphatase slightly elevated rest of the labs are stable 1. Cataracts Patient is scheduled for cataract surgery on the left eye on August 17 at [facility]. The right eye surgery is planned for September 14. Pre-operative labs indicate no contraindications. 2. Hypertension Patient has been advised by her nurse practitioner hospitalist to consider spironolactone to manage hypertension. Initiation of spironolactone recommended before hydroxychloroquine, with ongoing monitoring for side effects. 3. Elevated Iron Levels Iron levels are elevated, possibly due to inflammation. Previous testing for hemochromatosis was negative. It is suggested to check ferritin and iron levels during future lab tests every six months. 4. Shortness Of Breath Initiate spironolactone as prescribed by nurse practitioner hospitalist, Dr. Zamora. Avoid starting multiple new medications simultaneously to monitor for side effects effectively. 5. Systemic/discoid Lupus Erythematosus The patient is advised to continue using clobetasol cream for her skin lupus flare-ups. Hydroxychloroquine has been recommended by her baggage and mail agent, and should be started if flare-ups persist despite current treatment. Regular monitoring for side effects of hydroxychloroquine will be necessary. 6- paroxysmal atrial fibrillation managed by Cardiology, [facility], last visit for yesterday, nurse practitioner hospitalist is aware that patient is going in for cataract surgery At this point cardiac status is stable 7-obstructive sleep apnea stable with CPAP managed by sleep specialist 8-allergies stable at this time Problem List - Systemic Lupus Erythematosus - Cataracts - Elevated Iron Levels - Hypertension - Shortness of Breat - sleep apnea on CPAP - allergies stable Patient Instructions - Start spironolactone first, monitoring for any side effects within the first few days. - Continue to use clobetasol topical cream for lupus flare-ups. - Consider starting hydroxychloroquine if lupus symptoms persist after current treatment. - Follow-up with routine lab tests including ferritin and iron every six months. - Attend scheduled cataract surgeries and inform regarding any change in health status. - Maintain records of vaccines and review adherence to CPAP therapy for sleep a pnea. - Update me with any significant changes in health or medication responses before the next scheduled visit Patient is stable for cataract surgery 45 minutes spent in care of this patient
== END 2024-08-02 13:11 | disposition home or self-care (01) ==
PROVIDERS: PCP Internal Medicine; Visit Provider Internal Medicine
DX: I48.0 Paroxysmal atrial fibrillation (principal); M35.00 Sjogren syndrome, unspecified; H26.8 Other specified cataract; Z01.818 Encounter for other preprocedural examination; L93.0 Discoid lupus erythematosus; R79.89 Other specified abnormal findings of blood chemistry; R06.02 Shortness of breath; G47.33 Obstructive sleep apnea (adult) (pediatric); Z99.89 Dependence on other enabling machines and devices; Z91.09 Other allergy status, other than to drugs and biological substances; I10 Essential (primary) hypertension

== ENCOUNTER → 2024-08-02 12:32 | Outpatient (BNVA) | payer MEDICARE, OTHER, SELFPAY | PROVIDERS: PCP Internal Medicine; Visit Provider Internal Medicine | DX: Z01.818 Encounter for other preprocedural examination (principal); H26.8 Other specified cataract; L93.0 Discoid lupus erythematosus; I48.0 Paroxysmal atrial fibrillation; R79.89 Other specified abnormal findings of blood chemistry; R06.02 Shortness of breath; G47.33 Obstructive sleep apnea (adult) (pediatric); M35.00 Sjogren syndrome, unspecified; I10 Essential (primary) hypertension; Z91.09 Other allergy status, other than to drugs and biological substances; Z99.89 Dependence on other enabling machines and devices | CPT/HCPCS: 99212 ==

== ENCOUNTER 2024-10-31 14:34 | Outpatient (REF) | payer MEDICARE, OTHER, SELFPAY ==
--- OUTSIDE RECORDS SUMMARY | 2024-10-31 18:15 | XMS_ITS ---
Author Organization [facility] Address [address] [place] [id number] Care Team Providers Care Supervisor Kennel Name Role Phone Glen CASH, Asma Primary Care Provider Kaushik Nguyễn [phone] REASON FOR VISIT questions Encounters Encounter Location Date Provider Diagnosis [facility] [address] [place] [address] 12/16/2023 Kaushik [place] PLAN OF TREATMENT No Information
--- OUTSIDE RECORDS SUMMARY | 2024-10-31 18:15 | XMS_ITS ---
Author Organization [facility] Address [address] [place] [id number] Care Team Providers Care Shoemaking Cutter Name Role Phone Glen CASH, Asma Primary Care Provider Kaushik Nguyễn [phone] Encounters Encounter Location Date Provider Diagnosis [facility] [address] [place] [id number] 11/07/2023 Kaushik [place] PLAN OF TREATMENT No Information
--- OUTSIDE RECORDS SUMMARY | 2024-10-31 18:15 | XMS_ITS | Patient Health Record ---
Author Organization [facility] Edmar otilio Hernández Address [address] [place] [address] Care Team Providers Care Regional Medical Director Name Role Phone Glen CASH, Asma Primary Care Provider Molina Arcos Unavailable [phone] Allergies Allergen (clinical drug ingredient) Drug/Non Drug Allergy documented on EMR Reaction Allergy Type Onset Date Status albuterol Albuterol Unknown Drug Allergy Active amoxicillin Amoxicillin Unknown Drug Allergy Act maria luisa Reason For Referral No Information Medications Medication SIG (Take, Route, Frequency, Duration) Notes Start Date End Date Status Atorvastatin Calcium 10 MG 1 tablet Orally Once a day for 30 day(s) Active CoQ-10 Active Tacrolimus Active Night Splint AFO - L1930 as directed 11/24/2021 Active Delsym prn Active Triamcinolone & Emollient Not-Taking Escitalopram Oxalate Active Clobetasol 17 Propionate Active Losartan Potassium 50 MG 1 tablet Orally Once a day for 30 day(s) Active Flecainide Acetate 50 MG as directed Orally Not-Takin g Metoprolol Succinate 25 MG 1 capsule Orally Once a day Active Vitamin D3 Active Alaway Active Systane prn Active Global Marketing Manager Syringe every 3 weeks Active Metamucil Active Eliquis 5 MG as directed Orally Active Physical Therapy . . . 2-3x/week for 3-4 weeks 12/19/2021 Active Tylenol Arthritis Pain Active amLODIPine Besylate 2.5 MG 1 tablet Orally Once a day Active Fish Oil Active Fluocinolone Cream & Emollient Active ZyrTEC Allergy Activ e Immunizations Vaccine Route Administration Date Status Comme nts COVID-19 Moderna Vaccine Unknown 07/04/2021 Administered 1st 11/11/2020 2nd 12/09/2020 Social History Tobacco Use: Social History Observation Description Date Details (start date - stop date) Never Smoker NA - NA Tobacco Use/Smoking Question Answer Notes Are you a: nonsmoker Additional Findings: Tobacco Non-User Current no n-smoker Alcohol Screen Question Answer Notes Did you have a drink containing alcohol in the p ast year? No Points 0 Interpretation Negative Tobacco use other than smoking: Question Answer Notes Are you an other tobacco user? 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 Plan Of Treatment Pending Test Test Name Order Date X ray : Foot, left 3V 11/12/2021 [id number] TENDON SHEATH/LIGAMENT 0 01/27/2022 [id number] TENDON SHEATH/LIGAMENT 0 03/10/2022 Insurance Providers Payer Name Payer Address Payer Phone Subscriber Number Group Number Insured Name Patient Relationship to Insured Coverage Start Date Coverage End Date Medicare National [employer] [address] [place] [address] [id number] Merlyn Morris Self - patient is the insured peerTransfer ([facility]) [address] [place] [address] [id number] Merlyn Morris Self - patient is the insured Medical (General) History Medical History History ICD Code Anxiety Arthritis Back,Hip,and Knee pain Cataracts Hiatal hernia High blood pressure Lupus Measles Chicken pox Psoriasis Reflux ( GERD) Sjogren syndrome Surgical History Surgery Date(Month/Year) breast biopsy 80's sub mucous resection 1970 cardioversion 09/2021 Hospitalization History Reason Date(Month/Year) [facility] 06/2018
--- OUTSIDE RECORDS SUMMARY | 2024-10-31 18:15 | XMS_ITS ---
[facility] Organization [facility] Address [address] [place] [address] Care Team Providers Care Dye Tub Operator Name Role Phone Glen CASH, Asma Primary Care Provider Molina Arcos Unavailable [phone] Allergies Allergen (clinical drug ingredient) Drug/Non Drug Allergy documented on EMR Reaction Allergy Type Onset Date Status albuterol Albuterol Unknown Drug Allergy Active amoxicillin Amoxicillin Unknown Drug Allergy Act maria luisa REASON FOR VISIT pcp- 07/2023, pcp- 03/04/22 Medications Medication SIG (Take, Route, Frequency, Duration) Notes Start Date End Date Status Night Splint AFO - L1930 as directed 11/24/2021 Active Vitamin D3 Active Physical Therapy . . . 2-3x/week for 3-4 weeks 12/19/2021 Active amLODIPine Besylate 2.5 MG 1 tablet Orally Once a day Active ZyrTEC Allergy Activ e Tacrolimus Active Triamcinolone & Emollient Not-Taking Systane prn Active Metamucil Active Tylenol Arthritis Pain Active Losartan Potassium 50 MG 1 tablet Orally Once a day for 30 day(s) Active Metoprolol Succinate 25 MG 1 capsule Orally Once a day Active Fish Oil Active Fluocinolone Cream & Emollient Active Eliquis 5 MG as directed Orally Active Atorvastatin Calcium 10 MG 1 tablet Orally Once a day for 30 day(s) Active CoQ-10 Active Delsym prn Active Escitalopram Oxalate Active Sports Lawyer Syringe every 3 weeks Active Clobetasol 17 Propionate Active Flecainide Acetate 50 MG as directed Orally Not-Charly Gomez Active Social History Tobacco Use: Social History Observation [...] Are you an other tobacco user? 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.2) 08/03/2023 Pain in left foot (ICD-10 - M79.672) 08/03/2023 Calcaneal spur, left foot (ICD-10 - M77.32) 08/03/2023 Neuralgia and neuritis, unspecified (ICD-10 - M79.2) Plan Of Treatment Next Appt Details Follow Up: prn, Reason: Progress Notes * Julissa THOMASOB:1945 (78 yo F)Acc No.[id number]:08/03/2023 Progress Note Patient:?Torinsabiha Merlyn Provider:?Molina Kaur DPM :1945???Age:78 Y???Sex:Female D ate:08/03/2023 Address:[address] [place], [place] [phone] Pcp:Bola Carroll MD Subjective: * Chief Complaints: * ???Pcp- cp- 03/04/22 * HPI: ???Heel pain:?Nature:?aching.?Location:?plantar, Arch.?Duration:?several weeks.?Onset/Cause:?use of oofos around the house.?Aggrevated:?standing, walking, walking first thing in the morning/after rest.?Treatments:?? custom orthoses.?Severity/Quality:?considered 1 out of 10.? * ROS:?General/Constitutional:?Nausea?denies, denies.?Vomiting?denies, denies.?Hunger Thirst?denies, denies.?Loss appetite?denies, denies.?Chills?denies, denies.?Fatigue?denies, denies.?Fever?denies, denies.?Night Sweats denies, denies.?Unexplained weight loss?denies, denies.?Unexplained weight gain?denies, denies.?HEENTM:?Dentures?denies, denies.?Dizziness?denies, denies.?Glasses/contacts?admits, admits.?Retinopathy?denies, denies.?Blurred/double vision?denies, denies.?TMJ?denies, denies.?Discharge/drainage?denies, denies.?Implants?denies, denies.?Sore throat?denies, denies.?Dental implants?denies, denies.?Hard of hearing ?denies, denies.?Difficulty chewing/swallowing/speaking?denies, denies.?Nose bleeds?denies, denies.?Sore mouth?denies, denies.?Respiratory:?On Oxygen?denies, denies.?Pneumonia/pleurisy?denies, denies.?Bronchitis?denies, denies.?Emphysema?denies, denies.?Coughing?denies, denies.?Cough blood?denies, denies.?Shortness of breath?admits, admits.?Wheezing?denies, denies.?Cardiovascular:?Pacemaker?denies, denies.?MVP?denies, denies.?WPW?denies, denies.?CHF?denies, denies.?Heart attack?denies, denies.?Septal defect?denies, denies.?Rapid beat?admits, admits.?Chest pain ?denies, denies.?Atrial Fib.?admits, admits.?Murmur/Palpitations?denies, denies.?Gastrointestinal:?Hemorrhoids?denies, denies.?Stomach/Abdominal pain?denies, denies.?Dark blood stool?denies, denies.?Irritable bowel ?denies, denies.?Constipation?denies, denies.?Diarrhea?denies, denies.?Hematology:?Swelling?denies, denies.?Clots?denies, denies.?Varicose Veins?denies, denies.?Bruising?admits, on anticoagulants, admits, on anticoagulants.?Bleeding problem?admits, on anticoagulants, admits, on anticoagulants.?Genitourinary:?Blood urine?denies, denies.?Frequent/Painfu/urination/bladder control?denies, denies.?Kidney stones?denies, denies.?Infection (UTI)?denies, denies.?Nephropathy?denies, denies.?sex trans dis (STD)?denies, denies.?Prostate?denies, denies.?Musculoskeletal:?Hammertoes?denies, denies.?Bunions?denies, denies.?Back Pain?admits, admits.?Muscle Cramps/ Resting?admits, admits.?Muscle cramps / walking?denies, denies.?Generalized aches and pains?admits, admits.?Weakness?denies, denies.?Integ.:?Mendoza?denies, denies.?Scars?denies, denies.?Corns/calluses?denies, denies.?Ingrown nails?denies, denies.?Painful nails?denies, denies.?Open Sores?denies, denies.?Rashes?denies, denies.?Neurologic:?Difficulty sleeping?admits, admits.?Brain disorder?denies, denies.?Numbness?denies, denies.?Balance trouble?denies, denies.?Confusion?denies, denies.?Fainting/blackouts?denies, denies.?Tingling?denies, denies.?Tremors?denies, denies.? * Medical History:? * Surgical History:?breast bio psy 80'ssub mucous resection 1970cardioversion 09/2021 * Hospitalization/Major Diagno stic Procedure:?[facility] 06/2018 * Family History:?Mother: dece ased, stroke, cancer, high blood pressure, diagnosed with Diabetic - NIDDM.?Father: , heart attack, high blood pressure, diagnosed with Diabetic - NIDDM.? * Social History:?Tobacco Use:?Tobacco Use/Smoking?Are you a:?nonsmoker ?Additional Findings: Tobacco Non-User?Current non-smoker ?Tobacco use other than smoking?Are you an other tobacco user??No ???Drugs/Alcohol:?Drugs?Have you used drugs other than those for medical reasons in the past 12 months??No ?Alcohol Screen?Did you have a drink containing alcohol in the past year??No ?Points?0 ?Interpretation?Negative ???Miscellaneous:?Caffeine: yes. ?Exercise: walking about 20-25 minutes a day , stretches. ?Marital status: . 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 * Medications:?TakingClobetaso l 17 Propionate [place] Sports Lawyer Syringe , Notes: every 3 weeksAtorvastatin Calcium 10 MG Tablet 1 tablet Orally Once a dayCoQ-10 Delsym , Notes: prnEscitalopram Oxalate Eliquis 5 MG Tablet as directed Orally Fish Oil Fluocinolone Cream & Emollient Losartan Potassium 50 MG Tablet 1 tablet Orally Once a dayMetoprolol Succinate 25 MG Capsule ER 24 Hour Sprinkle 1 capsule Orally Once a daySystane , Notes: prnMetamucil Tacrolimus Tylenol Arthritis Pain ZyrTEC Allergy Vitamin D3 Night Splint AFO - L1930 as directed Physical Therapy . . . . 2-3x/weekamLODIPine Besylate 2.5 MG Tablet 1 tablet Orally Once a dayTaking Clobetasol 17 Propionate Taking [place] Taking Sports Lawyer Syringe , Notes: every 3 weeksTaking Atorvastatin Calcium 10 MG Tablet 1 tablet Orally Once a dayTaking CoQ-10 Taking Delsym , Notes: prnTaking Escitalopram Oxalate Taking Eliquis 5 MG Tablet as directed Orally Taking Fish Oil Taking Fluocinolone Cream & Emollient Taking Losartan Potassium 50 MG Tablet 1 tablet Orally Once a dayTaking Metoprolol Succinate 25 MG Capsule ER 24 Hour Sprinkle 1 capsule Orally Once a dayTaking Systane , Notes: prnTaking Metamucil Taking Tacrolimus Taking Tylenol Arthritis Pain Taking ZyrTEC Allergy Taking Vitamin D3 Taking Night Splint AFO - L1930 as directed Taking Physical Therapy . . . . 2-3x/weekTaking amLODIPine Besylate 2.5 MG Tablet 1 tablet Orally Once a dayNot-Taking/PRNFlecainide Acetate 50 MG Tablet as directed Orally Triamcinolone & Emollient Medication List reviewed and reconciled with the patientNot-Taking/PRN Flecainide Acetate 50 MG Tablet as directed Orally Not-Taking/PRN Triamcinolone & Emollient Medication List reviewed and reconciled with the patient * Allergies:?AmoxicillinAlbute jovany[Allergies Verified] Objective: * Vitals:?Ht: 5ft 6in, Wt: 150 , BMI: 24.21, Shoe size: 9.5, Wt-k.04 kg. * Examination: ???Heel Pain: ?INSPECTION REVEALS:? Pain on Palpation to Plantar Fascia med. and central bands, intrinsic musc., infra-calcaneal bursa, and med calc tubercle, B/L--central bands zac left more than right.?Orthopedic: ?MUSCLE STRENGTH:?5/5 all groups in a symmetrical fashion , B/L.?GAIT ABNORMALITY:? antalgic.?FOOT MORPHOLOGY:? Pes Cavus structure, B/L.?General Examination: ?GENERAL APPEARANCE:?Reveals a pleasant, alert, well nourished, well developed, well hydrated individual, who demonstrates proper attention to hygene/body habitus, and is in no acute distress.?ORIENTED:?person, place, and time.?Neurological: ?SENSORY:?Neurological exam reveals intact sensorium, pain sensation normal, vibration sensation intact, pinprick sensation is normal in the lower extremities, Pt denies, anesthesia, burning, paresthesia, tingling, B/L, Neurological exam demonstrates pop pl left heel and lateral left 5th mt base.?TINEL'S COMPRESSION:?Negative tarsal tunnel, gama pedis, and medial calcaneal nerves.?DEEP TENDON REFLEXES:?Achilles, 2/4, B/L.?Vascular: ?DP PULSES:? 2/4, B/L.?PT PULSES:? 2/4, B/L.?CAPILLARY FILL TIME:?immediate, all digits, B/L.?SKIN TEMPERTURE GRADIENT OF THE LOWER EXTERMITIES:?warm to cool, proximal to distal, B/L.?HAIR GROWTH/TEXTURE/ELASTICITY/TURGOR:?normal, B/L.?PIGMENTATION:?normal, B/L.?EDEMA:?absent, B/L.?Dermatologic: ?SKIN FINDINGS:?Skin exam reveals normal texture, elasticity, and turgor. There are no masses. The interspaces are clear.? Assessment: * Assessment: 1.?Plantar fascial fibromato sis - M72.2 (Primary), LEFT?2.?Pain in left foot - M79.672?3.?Calcaneal spur, left foot - M77.32?4.?Neuralgia and neuritis, unspecified - M79.2? Plan: * Treatment: * Procedure Codes:? * Preventive Medicine:? ??Counseling:?Discussion:?-13: Office or other outpatient visit for the evaluation and management of an established patient, which required a medically appropriate history and/or examination and LOW level of DECISION MAKING for: 1 STABLE ACUTE UNCOMPLICATED PROBLEM, 2 OR MORE MINOR PROBLEMS, OR 1 STABLE CHRONIC PROBLEM, THAT POSE(S) A LOW RISK FOR MORBIDITY/MORTALITY. The visit on the day of the encounter encompassed interpreting the data and educating the patient as to the nature of their condition, treatment options available according to their individual PMH, meds, allergies, and overall health/living conditions, as well as any potential risks or complications that may occur from a failure to adhere to, and participate in, the recommended course of therapy. The discussion included a complete verbal, and/or written explanation of the examination results, any x-rays taken, the proposed diagnosis, and outline of the treatment plan. A schedule for future care needs was also explained. The patient verbalized an understanding of the instructions at this time and agreed to be an active participant in their treatment. If the patient should think of any questions or concerns after the visit, I have encouraged the patient to call the office--pt to use 5 min massage of PF qd and ice tx; d/c use of oofos and use custom orthoses and NB shoes at all times in house.? * Follow Up:?prn * Images: * Sign off status: Completed true * Provider:?Molina Kaur DPM Date:? 023 Generated for Bibiana webb/Hannah/Radha on:?10/31/2024 06:15 PM EST History and Physical Notes * HPI (History of Present Illness) Category Sub-Category Detail Notes Category Not es Heel pain Duration: several weeks Nature: aching Severity/Quality: considered 1 out of 10 Location: plantar, Arch Onset/Cause: use of oofos around the house Aggravated: standing, walking, w alking first thing in the morning/after rest Treatments: custom orthoses Examination Category Sub-Category Detail Notes Category Not es Heel Pain INSPECTION REVEALS: Pain on Palp ation to Plantar Fascia med. and central bands, intrinsic musc., infra-calcaneal bursa, and med calc tubercle, B/L--central bands zac left more than right Neurological SENSORY: Neurological exa m reveals intact sensorium, pain sensation normal, vibration sensation intact, pinprick sensation is normal in the lower extremities, Pt denies, anesthesia, burning, paresthesia, tingling, B/L, Neurological exam demonstrates pop pl left heel and lateral left 5th mt base TINEL'S COMPRESSION: Negative tarsal mj randal, gama pedis, and medial calcaneal nerves DEEP TENDON REFLEXES: Achilles, 2/4, B/L Dermatologic SKIN FINDINGS: Skin exam reveal s normal texture, elasticity, and turgor. There are no masses. The interspaces are clear Orthopedic GAIT ABNORMALITY: antalgic FOOT MORPHOLOGY: Pes Cavus structure, B/L MUSCLE STRENGTH: 5/5 all groups in a symmetrical fashion , B/L General Examination GENERAL APPEARANCE: Reveals a pleasant, alert, well nourished, well developed, well hydrated individual, who demonstrates proper attention to hygene/body habitus, and is in no acute distress ORIENTED: person, place, and t alison Vascular DP PULSES (B): 2/4, B/L PT PULSES (B): 2/4, B/L CAPILLARY FILL TIME: immediate, all digi ts, B/L TEMPERTURE GRADIENT (C): warm to cool, p roximal to distal, B/L TROPHIC CONDITION-TEXTURE/ELASTICITY/TURGOR/HAIR GROWTH (B): normal, B/L EDEMA (C): absent, B/L PIGMENTATION: normal, B/L
--- OUTSIDE RECORDS SUMMARY | 2024-10-31 18:15 | XMS_ITS ---
Author Organization [facility] Address [address] [place] [phone] Care Team Providers Care Economic Development Coordinator Name Role Phone Glen CASH, [facility] Primary [facility] Provider Kaushik Nguyễn [phone] REASON FOR VISIT screening,fam hx colon ca PROBLEMS Problem Type ICD Code Onset Dates Problem Status W/U Status Risk SNOMED Code Notes Problem Diverticulosis of large intestine without perforation or abscess without bleeding (K57.30) Active confirmed Diverticul ar disease of colon (683020348) Problem Gastritis, chronic (K29.50) Active confirmed Chronic gas tritis (4843313) Problem Esophageal reflux disease (K21.9) Active confirmed Gastroesopha geal reflux disease (064889324) Encounters Encounter Location Date Provider Diagnosis [facility] Outpatient [address] [place] [phone] 12/15/2023 Kaushik Lima Encounter for scre ening colonoscopy Z12.11 ; Diverticulosis of large intestine without perforation or abscess without bleeding K57.30 ; Other hemorrhoids K64.8 ; Hiatal hernia K44.9 ; Gastritis, chronic K29.50 and Esophageal reflux disease K21.9 ASSESSMENTS Encounter Date Diagnosis Assessment Notes Treatment Notes Treatment Clinical Notes 12/15/2023 Encounter for screening colonoscopy (ICD-10 - Z12.11) 12/15/2023 Diverticulosis of large intestine without perforation or abscess without bleeding (ICD-10 - K57.30) 12/15/2023 Other hemorrhoids (ICD-10 - K64.8) 12/15/2023 Hiatal hernia (ICD-1 0 - K44.9) 12/15/2023 Gastritis, chronic (ICD-10 - K29.50) 12/15/2023 Esophageal reflux disease (ICD-10 - K21.9) PLAN OF TREATMENT No Information
--- OUTSIDE RECORDS SUMMARY | 2024-10-31 18:16 | XMS_ITS | Patient Health Record ---
Author Organization [facility] Address [address] [place] [phone] Care Team Providers Care Residential Advisor Name Role Phone Glen CASH, Asma Primary Care Provider Kaushik Nguyễn Unavailable [phone] ALLERGIES Allergen (clinical drug ingredient) Drug/Non Drug Allergy documented on EMR Reaction Allergy Type Onset Date Status Mepivacaine HCl Unknown Drug Allergy A ctive amoxicillin Amoxicillin Unknown Drug Allergy Act maria luisa REASON FOR REFERRAL No Information MEDICATIONS Medication SIG (Take, Route, Frequency, Duration) Notes Start Date End Date Status Fish Oil 1000 MG 1 capsule Orally Onc e a day Active CoQ-10 100 MG 2 capsule with a seema l Orally Once a day Active Tylenol Extra Strength 500 MG 1 tablet as needed Orally every 6 hrs Active Eliquis 5 MG TAKE 1 TABLET BY PREM TH TWICE A DAY Oral for 90 Active Atorvastatin Calcium 10 MG Oral for 90 Active Metoprolol Succinate ER 25 MG Oral for 90 Active amLODIPine Besylate 2.5 MG Oral for 90 Active Vitamin D3 Active Fluocinolone Acetonide 0.025 % External for 30 Active Metamucil 0.36 GM as directed Orally Active Escitalopram Oxalate 5 MG Oral for 85 Active Tacrolimus 0.1 % APPLY TO GENITAL SKI N TWICE A DAY AND FACIAL RASH TWICE A DAY External for 30 Active IMMUNIZATIONS Vaccine Route Administration Date Status Comme nts Flu vaccine no Preserv 3 and > Unknown 07/15/2016 Admin istered SOCIAL HISTORY Sex Assigned At : Social History Observation Description Sex Assigned At Unknown PROBLEMS Problem Type ICD Code Onset Dates Problem Status W/U Status Risk SNOMED Code Notes Problem Colon cancer screening (Z12.11) Active confirmed 267977497 Problem Change in bowel habit (R19.4) Active confirmed 294804771 Problem Diverticulosis of large intestine without perforation or abscess without bleeding (K57.30) Active confirmed Diverticul ar disease of colon (233097599) Problem Cough (R05) Active confirmed 91633178 Problem Gastritis, chronic (K29.50) Active confirmed Chronic gastrit is (5070149) Problem Current use of mcfp anticoagulation (Z79.01) Active confirmed 481304196 Problem Irritable bowel syndrome, unspecified type (K58.9) Active confirmed 91932949 Problem Esophageal reflux disease (K21.9) Active confirmed Gastroesopha geal reflux disease (582300483) Problem Family hx of colon cancer (Z80.0) Active confirmed 154614186 Encounters Encounter Location Date Provider Diagnosis [facility] Outpatient [address] [place] [phone] 12/15/2023 Kaushik Lima Encounter for screen ing colonoscopy Z12.11 ; Diverticulosis of large intestine without perforation or abscess without bleeding K57.30 ; Other hemorrhoids K64.8 ; Hiatal hernia K44.9 ; Gastritis, chronic K29.50 and Esophageal reflux disease K21.9 [facility] [address] [place] [phone] 11/07/2023 Kaushik Lima [facility] [address] [place] [phone] 12/16/2023 Kaushik Lima ASSESSMENTS Encounter Date Diagnosis Assessment Notes Treatment Notes Treatment Clinical Notes 12/15/2023 Encounter for screening colonoscopy (ICD-10 - Z12.11) 12/15/2023 Diverticulosis of large intestine without perforation or abscess without bleeding (ICD-10 - K57.30) 12/15/2023 Other hemorrhoids (ICD-10 - K64.8) 12/15/2023 Hiatal hernia (ICD-1 0 - K44.9) 12/15/2023 Gastritis, chronic (ICD-10 - K29.50) 12/15/2023 Esophageal reflux disease (ICD-10 - K21.9) PLAN OF TREATMENT Future Test Test Name Order Date COLONOSCOPY 04/18/2013 COLONOSCOPY 07/13/2023 Insurance Providers Payer Name Payer Address Payer Phone Subscriber Number Group Number Insured Name Patient Relationship to Insured Coverage Start Date Coverage End Date MEDICARE OF [place] [address] [place] [address] [id number] OMAR THOMAS Self - patient is the insured [facility] [address] [place] [address] [id number] OMAR THOMAS Self - patient is the insured MEDICAL (GENERAL) HISTORY Medical History History ICD Code Hypertension Mild asthma on PFT's--sees Dr. Nghia Lopez [place],DM,CVA,renal disease Negative colonoscopies in , 2002,2007, and 2013--neg. 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 Mendoza and Dr. Graciela fernandez Eczema Anxiety Allergy injections once a month Urinary incontinence Afib-sees Dr. Nigel Zamora--2 cardioversions - Sleep apnea-uses CPAP Surgical History Surgery Date(Month/Year) Breast biopsy--benign Deviated septum
== END 2024-10-31 14:35 | disposition home or self-care (01) ==
LOC: HO.MAMMO 14:34
PROVIDERS: PCP Internal Medicine; Visit Provider Internal Medicine
DX: Z12.31 Encounter for screening mammogram for malignant neoplasm of breast (principal)
CPT/HCPCS: 77063; 77067

== ENCOUNTER → 2024-10-31 14:45 | Outpatient (BNV) | payer MEDICARE, OTHER, SELFPAY | PROVIDERS: PCP Internal Medicine; Visit Provider Internal Medicine | DX: Z12.31 Encounter for screening mammogram for malignant neoplasm of breast (principal) | CPT/HCPCS: 77063; 77067 ==

== ENCOUNTER 2024-11-15 12:28 | Outpatient (AMB) | payer MEDICARE, OTHER, SELFPAY ==
--- NOTE | 2024-11-15 13:13 | MHC.OFFWIV ---
Intake Vital Signs 11/15/24 13:14 Height 5 ft 6 in Weight 162 lb BMI 26.1 BP 108/68 Blood Pressure Location Rt brachial Position Sitting Pulse 89 Pulse Source Pulse Oximeter Temp 97.4 F Temp Source Oral Pulse Oximetry (%) 98 Oxygen Delivery Method Room Air Intake Visit Reasons: EP aches, woozy, weak,congestion Intake Note: Patient here for cough, ribs hurt from coughing, weakness, congestion,nausea,dry mouth and weakness that started 1 week ago. Patient Tobacco Use Status: Never used Tobacco Allergies amoxicillin Allergy (Severe, Verified 11/15/24 13:15) nausea headache dizzy weak bed ridden for 2 days albuterol Allergy (Unknown, Verified 11/15/24 13:15) Shortness of Breath OLIMPIA Inhibitors Adverse Reaction (Verified 11/15/24 13:15) Cough mepivocaine Allergy (Severe, Uncoded 11/15/24 13:15) dizziness, weak, nausea Do you need a note to return to daycare/school/sports/work: No HPI HPI Comments History of Present Illness Details Patient is a 79yo F who presents to office with complaint of cough/congestion, weakness sick at home as well Last wednesday onset of symptoms Cough was initial symptoms and persistent Causes R sided rib ache with coughing She said decreased appetite so she feels woozy with intermittent dizziness She has had some water and gingerale and gatorade No syncope or LOC She denies body aches Chills without documented fever + congestion intermittent No ear pain or ST + nausea intermittently + dry mouth and throat She noticed this am her stools are brown/yellow in color. No melena or brbpr Normal formed stool No abdominal pain [facility] Medical History A-fib SOB (shortness of breath) History of cardioversion (~2021) Constipation Seasonal allergies Hiatal hernia Sclerosis of the skin Discoid lupus Eczema Obstructive sleep apnea on CPAP Asthma, mild Hiatal hernia Atrial septal defect Sjogrens syndrome YODIT positive Allergic rhinitis Environmental allergies Hypertension, essential Surgical History History of colonoscopy Family History Father CAD (coronary artery disease) Substance use disorder Mother Colon cancer Diabetes mellitus CAD (coronary artery disease) Kidney problem Breast cancer BRCA negative HTN (hypertension) Stroke PONV (postoperative nausea and vomiting) Sister HTN (hypertension) Maternal Grandmother Unknown family medical history Maternal Grandfather No problems noted. Paternal Grandfather No problems noted. Paternal Grandmother No problems noted. Maternal Aunt Breast cancer Brother No problems noted. Sister No problems noted. Social History Household Members: Spouse Housing: House Are you a primary resident care aid to a significant other at home: No Do you presently have visiting nurse or other home services: No Alcohol intake: current Alcohol intake frequency: holidays/special occasions only Patient Tobacco Use Status: Never used Tobacco e-Cigarette/Vaping Use: Never Used Second Hand Smoke Exposure: Yes ( smokes) Current occupational status: retired Cognitive needs: No Hearing needs: No Vision needs: No Review of Systems Const Denies body aches, Reports chills, Reports fatigue, Denies fever(s) and Denies headache(s) Eyes Denies change in vision ENT Denies vertigo, Denies otalgia, Denies headache(s), Reports nasal congestion, Denies sinus pressure, Denies throat swelling, Denies tongue swelling and Reports other (dry mouth and throat/lips) Card Denies syncope Resp Reports chest congestion, Reports cough and Reports pain with cough (R sided rib) GI Denies abdominal pain, Denies constipation, Denies diarrhea, Reports nausea and Denies vomiting Musc Denies myalgias Skin/Breast Denies erythema and Denies rash Neuro Denies vertigo, Denies syncope and Denies headache(s) Endo Reports fatigue Aller/Immun Denies throat swelling and Denies tongue swelling Physical Exam Vital Signs: Last Vital Signs Temp 97.4 F 11/15/24 13:14 Pulse 89 11/15/24 13:14 BP 108/68 11/15/24 13:14 Pulse Ox 98 11/15/24 13:14 Oxygen Delivery Method Room Air 11/15/24 13:14 BMI result Body Mass Index 26.1 General: Non-toxic, NAD. Speaking full sentences. Skin: Warm dry throughout Eye: EOMI HENT: Oral mucosa is moist but slight dryness to tongue. No lip fissures/cracks. No film on tongue or oral mucosa. Airway patent. Uvula midline. No pharyngeal erythema or edema. No MEDICAL DONATION PROFESSIONAL. Bilateral canals clear. TM non-erythematous, non-bulging. No TM perforation or hemotympanum noted. + rhinorrhea without ttp sinuses Respiratory: CTA bilaterally. No wheezes, rales or rhonchi Cardiac:. No murmur Neurology: Alert. No aphasia or facial droop. Gait without abnormality Psych: Good mood and affect Assessment & Plan Assessment & Plan (1) Bronchitis: Code(s): J40 - Bronchitis, not specified as acute or chronic Plan: Patient seen and evaluated. sick with same symptoms anf given antibiotic yesterday She has been sick > 1 week No indication for covid, flu, rsv swab due to no change in management Very much encouraged increasing fluid hydrationand lengthy discussion about this occured Will provide tessalon and doxy to take with food Discussed salonpas for rib discomfort prn Patient gave verbal understanding and had no additional questions or concerns at time of discharge All questions answered Medications: New benzonatate 200 mg PO BID-TID PRN 14 caps 0RF cough doxycycline hyclate 100 mg PO BID 14 caps 0RF Coding Level of Care Code Est Pt Level 3 (06553) Diagnoses Bronchitis J40
[2024-11-15 13:14] VITALS: BP 108/68; PULSE 89; TEMP 36.3; O2SAT 98; BMI 26.1
--- OUTSIDE RECORDS SUMMARY | 2024-11-15 14:30 | XMS_ITS ---
Author Organization [facility] Address [address] [place] [phone] Care Team Providers Care Ice Cream Mixer Name Role Phone Glen CASH, [facility] Primary Care Provider Kaushik Nguyễn [phone] REASON FOR VISIT screening,fam hx colon ca Problems Problem Type SNOMED Code ICD Code Onset Dates Problem Status W/U Status Risk Notes Problem Diverticular disease of colon (558793325) Diverticulosis of large intestine without perforation or abscess without bleeding (K57.30) Active confirmed Problem Chronic gastritis (4399062) Gastritis, chronic (K29.50) Active confirmed Problem Gastroesophageal reflux disease (210987896) Esophageal reflux disease (K21.9) Active confirmed Encounters Encounter Location Date Provider Diagnosis [facility] Outpatient [address] [place] [phone] 12/15/2023 Kaushik Lima Encounter for scre ening [...] Progress Notes * OMAR THOMAS MDOB: 7 (79 yo F)Acc No.[id number]:12/15/2023 EGD and COL/MAC Patient:?OMAR THOMAS Provider:?Kaushik Lima MD :1945???Age:78 Y???Sex:Female D ate:12/15/2023 Address:[address] [place] [address] Pcp:Bola Carroll MD Subjective: * Chief Complaints: * ???1. Screening,fam hx colon ca. * Medical History:? Objective: * Vitals:? Assessment: * Assessment: 1.?Encounter for screening c olonoscopy - Z12.11 (Primary)???2.?Diverticulosis of large intestine without perforation or abscess without bleeding - K57.30???3.?Other hemorrhoids - K64.8???4.?Hiatal hernia - K44.9???5. Gastritis, chronic - K29.50???6.?Esophageal reflux disease - K21.9??? Plan: * Treatment: * Procedure Codes:?G0121 COLOR EC CNCR SCR;COLNSCPY NO HI RSK, 0529F INTRVL 3+YRS PTS CLNSCP DOCD, Modifiers: 8P , 0528F RCMND FLW-UP 10 YRS DOCD, Modifiers: 1P , 19288 UPPR GI ENDOSCOPY, DIAGNOSIS * * The named appointment provid er may or may not be the originator of this progress note, and it is not deemed complete until electronically signed by the appointment provider. Sign off status: Pending * Provider:?Kaushik Lima MD Date:? 024 Generated for Bibiana webb/Hannah/eTransmitting on:?11/15/2024 02:30 PM EDT
--- OUTSIDE RECORDS SUMMARY | 2024-11-15 14:31 | XMS_ITS ---
Author Organization [facility] Address [address] [place] [phone] Care Team Providers Care Fish Hatchery Laborer Name Role Phone Glne CASH, Asma Primary Care Provider Kaushik Nguyễn [phone] REASON FOR VISIT questions Encounters Encounter Location Date Provider Diagnosis [facility] [address] [place] [phone] 12/16/2023 Kaushik Lima Plan Of Treatment No Information Progress Notes * OMAR THOMAS MDOB: 7 (78 yo F)Acc No.[id number]:12/16/2023 Patient:?OMAR THOMAS :1945???Age:78 Y???Sex:Female Address:[address] [place] [id number] * true * Date:? Generated for Bibiana webb/Hannah/eTransmitting on:?11/15/2024 02:30 PM EDT
--- OUTSIDE RECORDS SUMMARY | 2024-11-15 14:31 | XMS_ITS ---
[facility] Address [address] [place] [address] Care Team Providers Care Director Of Financial Planning Name Role Phone Glen CASH, Asma Primary Care Provider Molina Arcos Unavailable [phone] Allergies Allergen (clinical drug ingredient) Drug/Non Drug [...] Active Delsym prn Active Escitalopram Oxalate Active Brass Chaser Syringe every 3 weeks Active Clobetasol 17 [...] 08/03/2023 Encounters Encounter Location Date Provider Diagnosis [facility] [address] [place] [phone] 08/03/2023 Molina Kaur Plantar fascial fibromatosis M72.2 [...] Notes * Julissa THOMASOB:1945 (78 yo F)Acc No.[id number]:08/03/2023 Progress Note Patient:?Torinsabiha Merlyn Provider:?Molina Kaur DPM :1945???Age:78 Y???Sex:Female D ate:08/03/2023 Address:[address] [place], [place] [phone] Pcp:Bola Carroll MD Subjective: * Chief Complaints: [...] teacher. * Medications:?TakingClobetaso l 17 Propionate [place]away Brass Chaser Syringe , Notes: every 3 weeksAtorvastatin Calcium [...] dayTaking Clobetasol 17 Propionate Taking Alaway Taking Brass Chaser Syringe , Notes: every 3 weeksTaking Atorvastatin [...] DPM Date:? 023 Generated for Bibiana webb/Hannah/Radha on:?11/15/2024 02:30 PM EDT History and Physical Notes * HPI (History [...]
--- OUTSIDE RECORDS SUMMARY | 2024-11-15 14:31 | XMS_ITS | Patient Health Record ---
Author Organization [facility] Melissacristin Hernández Address [address] [place] [address] Care Team Providers Care Wild Life Manager Name Role Phone Glen CASH, Asma Primary Care Provider Molina Arcos Unavailable [phone] Allergies Allergen (clinical drug ingredient) Drug/Non Drug [...] D3 Active [place] Active Systane prn Active Community Development Specialist Syringe every 3 weeks Active Metamucil Active [...] Status Risk Notes Problem Plantar fascial fibromatosis (16355411) Plantar fascial fibromatosis (M72.2) Active confirmed Plan Of Treatment Pending Test Test Name Order Date X ray : Foot, left 3V 11/12/2021 [id number] TENDON SHEATH/LIGAMENT 0 01/27/2022 [id number],[id number] TENDON SHEATH/LIGAMENT 0 03/10/2022 Insurance Providers Payer Name Payer Address Payer Phone Subscriber Number Group Number Insured Name Patient Relationship to Insured Coverage Start Date Coverage End Date Medicare National [employer]t [employer] [address] [place] [address] [id number] Merlyn Morris Self - patient is the insured [employer] ([facility] [address] [place] [address] [phone] [id number] Merlyn Morris Self - patient is [...]
--- OUTSIDE RECORDS SUMMARY | 2024-11-15 14:31 | XMS_ITS ---
Author Organization [facility] Address [address] [place] [phone] Care Team Providers Care Apple Thinner Name Role Phone Glen CASH, Asma Primary Care Provider Kaushik Nguyễn [phone] Encounters Encounter Location Date Provider Diagnosis [facility] [address] [place] [phone] 11/07/2023 Kaushik Lima Plan Of Treatment No Information Progress Notes * OMAR THOMAS MDOB: 7 (78 yo F)Acc No.[id number]:11/07/2023 Patient:?OMAR THOMAS :1945???Age:78 Y???Sex:Female Address:[address] [place] [address] * true * Date:? Generated for Bibiana webb/Hannah/eTransmitting on:?11/15/2024 02:31 PM EDT
--- OUTSIDE RECORDS SUMMARY | 2024-11-15 14:31 | XMS_ITS | Patient Health Record ---
Author Organization [facility] Address [address] [place] [phone] Care Team Providers Care Presser Automatic Name Role Phone Glen CASH, Asma Primary Care Provider Kaushik Nguyễn Unavailable [phone] Allergies Allergen (clinical drug ingredient) Drug/Non Drug [...] TWICE A DAY External for 30 Active Immunizations Vaccine Route Administration Date Status Comme nts Flu vaccine no Preserv 3 and > Unknown 07/15/2016 Admin istered Problems Problem Type SNOMED Code ICD Code Onset Dates Problem Status W/U Status Risk Notes Problem 074467389 Colon cancer screening (Z12.11) Active confirmed Problem 434147622 Change in bowel habit (R19.4) Active confirmed Problem Diverticular disease of colon (209117844) Diverticulosis of large intestine without perforation or abscess without bleeding (K57.30) Active confirmed Problem 21390664 Cough (R05) Active confirmed Problem Chronic gastritis (9712885) Gastritis, chronic (K29.50) Active confirmed Problem 207128727 Current use of half-way anticoagulation (Z79.01) Active confirmed Problem 62608192 Irritable bowel syndrome, unspecified type (K58.9) Active confirmed Problem Gastroesophageal reflux disease (713128936) Esophageal reflux disease (K21.9) Active confirmed Problem 412782807 Family hx of col on cancer (Z80.0) Active confirmed Encounters Encounter Location Date Provider Diagnosis [facility] [place] [address] [place], [place] [phone] 12/15/2023 Kaushik Lima Encounter for screen ing colonoscopy Z12.11 ; Diverticulosis of large intestine without perforation or abscess without bleeding K57.30 ; Other hemorrhoids K64.8 ; Hiatal hernia K44.9 ; Gastritis, chronic K29.50 and Esophageal reflux disease K21.9 [facility] [address] [place] [address] 12/16/2023 Kaushik Lima Assessments Encounter Date Diagnosis (ICD Code) Assessment [...] disease (ICD-10 - K21.9) Plan Of Treatment Future Test Test Name Order Date COLONOSCOPY 04/18/2013 COLONOSCOPY 07/13/2023 Insurance Providers Payer Name Payer Address Payer Phone Subscriber Number Group Number Insured Name Patient Relationship to Insured Coverage Start Date Coverage End Date MEDICARE OF [place] [address] [place] [address] [id number] MARTHA OMAR Self - patient is the insured [facility] [address] [place] [address] [id number] OMAR THOMAS Self - patient is the insured Medical (General) History Medical History History ICD Code Hypertension Mild asthma on PFT's--se[place] Dr. Nghia Lopez [place],DM,CVA,renal disease Negative colonoscopies in , 2002,2007, and 2013--neg. 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 Mendoza and Dr. Graciela fernandez Eczema Anxiety Allergy injections once a month Urinary incontinence Afib-sees Dr. Nigel Zamora--2 cardioversions - Sleep apnea-uses CPAP Surgical History Surgery Date(Month/Year) Breast biopsy--benign Deviated septum
== END 2024-11-15 13:54 | disposition home or self-care (01) ==
PROVIDERS: PCP Internal Medicine; Visit Provider Physician Assistant
DX: J40 Bronchitis, not specified as acute or chronic (principal)

== ENCOUNTER → 2024-11-15 12:28 | Outpatient (BNVA) | payer MEDICARE, OTHER, SELFPAY | PROVIDERS: PCP Internal Medicine; Visit Provider Physician Assistant | DX: J40 Bronchitis, not specified as acute or chronic (principal) | CPT/HCPCS: 99212 ==

== ENCOUNTER 2024-12-05 11:53 | Outpatient (AMB) | payer MEDICARE, OTHER, SELFPAY ==
[2024-12-05 12:02] VITALS: BP 122/76; PULSE 86; TEMP 36.6; O2SAT 96; BMI 25.0
--- NOTE | 2024-12-05 12:02 | A.OFFPC_ITS ---
Vital Signs 12/05/24 12:02 Height 5 ft 6 in Weight 155 lb BMI 25.0 BP 122/76 Blood Pressure Location Lt brachial Position Sitting Pulse 86 Pulse Source Pulse Oximeter Temp 97.9 F Temp Source Oral Pulse Oximetry (%) 96 Intake Visit Reasons: cough/cold Allergies amoxicillin Allergy (Severe, Verified 12/05/24 12:05) nausea headache dizzy weak bed ridden for 2 days albuterol Allergy (Unknown, Verified 12/05/24 12:05) Shortness of Breath OLIMPIA Inhibitors Adverse Reaction (Verified 12/05/24 12:05) Cough mepivocaine Allergy (Severe, Uncoded 11/15/24 13:15) dizziness, weak, nausea Medication List - Last Reconciled 12/05/24 by Bola Carroll MD acetaminophen (Tylenol Extra Strength) 500 mg PO Q6H PRN amlodipine 2.5 mg PO DAILY apixaban (Eliquis) 5 mg PO BID atorvastatin 10 mg PO DAILY cetirizine (Zyrtec) 10 mg PO DAILY PRN cholecalciferol (vitamin D3) (Vitamin D3) 25 mcg PO DAILY clobetasol 0.05% grams topical BID coenzyme Q10 (Co Q-10) 200 mg PO DAILY escitalopram oxalate 5 mg PO DAILY 90 days fluocinolone 0.025% appl topical hydroxychloroquine mg PO ketotifen fumarate 0.025%(0.035%) (Alaway) 1 drp ophthalmic (eye) Q8H losartan 50 mg PO BID 90 days [Metamucil PO BID] metoprolol succinate ER 25 mg PO DAILY 90 days omega-3 fatty acids (Fish Oil Concentrate) 1,000 mg PO DAILY psyllium husk (Metamucil) 0.4 grams PO DAILY spironolactone mg PO DAILY triamcinolone acetonide 0.1% appl topical BID Tobacco use date assessed: 12/05/24 Last assessed Fall Risk: 12/05/24 Dental Screening Dental Screen Date: 12/05/24 Did you have a dental problem in the last 6 months where you did not have access to dental care?: No HPI cough/cold HPI Details History - The patient is a 79-year-old female pr esenting with the evaluation of chronic cough and dizziness. - The patient reports a pccjl-ery-j-half -week duration of cough, which varies between dry and slightly productive with faint yellow-tinted phlegm. treated with antibiotic, and has improved - Her cough is particularly bothersome a t night, occasionally resulting in prolonged episodes. - The patient's symptoms have shown impr ovement but have not resolved completely. - She experiences dizziness in the morni ng, which might be exacerbated by her current medication regimen, including amlodipine, which I am stopping she is on 2.5 mg dose - She mentions consistent fatigue associ ated with these symptoms. - Notable past experiences include limb edema during previous trips, which she attributes to her use of Amlodipine, leading to its discontinuation. - The patient reports irritation in the mouth and facial puffiness possibly related to hydroxychloroquine use. other medications patient is taking Eliquis Atorvastatin Cetirizine Lexapro Losartan Metoprolol Spironolactone Problem List - Chronic Cough - Dizziness - Hypertension - Edema - Adverse Effects from Amlodipine - Adverse Effects from Hydroxychloroquin e - anxiety stable Lipid disorder On chronic blood thinners through Cardiology for paroxysmal atrial fibrillation Patient Instructions - Discontinue Amlodipine as it may cause swelling and contributes to low blood pressure. - To manage the cough, use cough drops a nd Benzonatate as needed. - Prednisone 5 mg is prescribed for up t o five days to reduce inflammation; start immediately and continue for at least three days. - Gargle with saltwater to help alleviat e mouth irritation. - Monitor symptoms, and if symptoms wors en or new symptoms develop during travel, consider taking prescribed prednisone or antibiotics. - Wear compression socks while on the pl ane and as needed during the trip, but remove them at night. - Monitor for facial puffiness and mouth irritation, noting any changes. - Practice caution with standing quickly to reduce dizziness episodes. Review of Systems - General: No fever no chills - Neurological: No headaches no dizziness - Ear nose throat: No sore throat no hearing difficulty no ear pain - Cardiovascular: No syncope, no chest pain, no palpitations - Gastrointestinal: No nausea vomiting or diarrhea - Endocrine: No polyuria polydipsia no heat intolerance - Genitourinary: No dysuria , no blood in urine Physical Exam - General: No acute distress - HEENT: No acute findings - Neck: Supple - Respiratory system: Able to talk in f ull sentences, no audible wheeze - Cardiovascular: S1-S2 irregularly ir regular - Gastrointestinal: No pain - Extremities: No new findings - BRONZE CHASER: Alert awake oriented x3 motor se nsory intact - Skin: Normal turgor PFSH Medical History A-fib SOB (shortness of breath) History of cardioversion (~2021) Constipation Seasonal allergies Hiatal hernia Sclerosis of the skin Discoid lupus Eczema Obstructive sleep apnea on CPAP Asthma, mild Hiatal hernia Atrial septal defect Sjogrens syndrome YODIT positive Allergic rhinitis Environmental allergies Hypertension, essential Surgical History History of colonoscopy Family History Father CAD (coronary artery disease) Substance use disorder Mother Colon cancer Diabetes mellitus CAD (coronary artery disease) Kidney problem Breast cancer BRCA negative HTN (hypertension) Stroke PONV (postoperative nausea and vomiting) Sister HTN (hypertension) Maternal Grandmother Unknown family medical history Maternal Grandfather No problems noted. Paternal Grandfather No problems noted. Paternal Grandmother No problems noted. Maternal Aunt Breast cancer Brother No problems noted. Sister No problems noted. Social History Household Members: Spouse Housing: House Are you a primary foster care case manager to a significant other at home: No Do you presently have visiting nurse or other home services: No Alcohol intake: current Alcohol intake frequency: holidays/special occasions only Patient Tobacco Use Status: Never used Tobacco e-Cigarette/Vaping Use: Never Used Second Hand Smoke Exposure: Yes ( smokes) service: No Current occupational status: retired Cognitive needs: No Hearing needs: No Vision needs: No Questionnaire PHQ-9 Over the last 2 weeks, how often have you been bothered by any of the following problems? 53462 - PHQ-9 Billing: Yes Source: Developed by Drs. Kaushik Simons, Lizzette Shirley, Arnav Pritchard and colleagues, with an educational romina from [employer]. Thrive Questionnaire Date Thrive assessed: 12/05/24 AUDIT C Alcohol Use Questionnaire (AUDIT-C) 1. How often do you have a drink containing alcohol?: Never 3. How often do you have six or more drinks on one occasion?: Never Total Score: 0 Score Reviewed/Action Taken: Yes MELISA-7 AMB Questionnaire MELISA-7 Date MELISA - 7 assessed: 12/05/24 Feeling nervous, anxious, or on edge: 0 = Not at all Not being able to stop or control worryin = Not at all Worrying too much about different things: 0 = Not at all Trouble relaxin = Not at all Being so restless that it is hard to sit still: 0 = Not at all Becoming easily annoyed or irritable: 0 = Not at all Feeling afraid as if something awful might happen: 0 = Not at all Total MELISA-7 score (0-4 normal; 5-9 mild; 10-14 moderate; 15-21 severe): 0 Source: Developed by Drs. Kaushik Smions, Lizzette Shirley, Arnav Pritchard and colleagues, with an educational romina from [employer]. MELISA-7 Assessment Billing MELISA-7 Assessment Tool: MELISA-7 Assessment 84917 Physical exam (Primary Care) Vital Signs: Last Vital Signs Temp 97.9 F 12/05/24 12:02 Pulse 86 12/05/24 12:02 BP 122/76 12/05/24 12:02 Pulse Ox 96 12/05/24 12:02 BMI result Body Mass Index 25.0 Tobacco/Smoking Status: Tobacco use Status Tobacco use date assessed 12/05/24 12/05/24 12:05 Patient Tobacco Use Status Never used Tobacco 12/05/24 12:05 e-Cigarette/Vaping Use Never Used 12/05/24 12:05 Thrive Assessment: Date of Thrive Assessment Date Thrive assessed 12/05/24 12/05/24 12:05 Coding Level of Care Code Est Pt Level 4 (38179) Complex EM visit Add On G2211 Diagnoses Dizziness R42 Dry cough R05.8 Discoid lupus erythematosus L93.0 Paroxysmal atrial fibrillation I48.0 Elevated ferritin R79.89 Shortness of breath R06.02 Obstructive sleep apnea on CPAP G47.33; Z99.89 Sjogren's syndrome, with unspecified organ involvement M35.00 Sjogren organ or system involvement: unspecified organ involvement Environmental allergies Z91.09 Hypertension, essential I10 Anxiety, generalized F41.1 Mild intermittent asthma without complication J45.20 Asthma persistence: intermittent Asthma complication type: uncomplicated Additional Codes MELISA-7 Assessment Billing - MELISA-7 Assessment Tool: MELISA-7 Assessment 04530 ([id number]) PHQ-9 - 39687 - PHQ-9 Billing: Yes ([id number]) Assessment & Plan Assessment & Plan (1) Dizziness: Code(s): R42 - Dizziness and giddiness Category: Medical (2) Dry cough: Code(s): R05.8 - Other specified cough Category: Medical (3) Discoid lupus erythematosus: Code(s): L93.0 - Discoid lupus erythematosus Category: Medical (4) Paroxysmal atrial fibrillation: Code(s): I48.0 - Paroxysmal atrial fibrillation Category: Medical (5) Elevated ferritin: Code(s): R79.89 - Other specified abnormal findings of blood chemistry Category: Medical (6) Shortness of breath: Code(s): R06.02 - Shortness of breath Category: Medical (7) Obstructive sleep apnea on CPAP: Code(s): G47.33 - Obstructive sleep apnea (adult) (pediatric); Z99.89 - Dependence on other enabling machines and devices Category: Medical (8) Sjogrens syndrome: Code(s): M35.00 - Sjogren syndrome, unspecified Category: Medical Qualifiers: Sjogren organ or system involvement: unspecified organ involvement Qualified Code(s): M35.00 - Sjogren syndrome, unspecified (9) Environmental allergies: Code(s): Z91.09 - Other allergy status, other than to drugs and biological substances Category: Medical (10) Hypertension, essential: Code(s): I10 - Essential (primary) hypertension Category: Medical (11) Anxiety, generalized: Code(s): F41.1 - Generalized anxiety disorder Category: Medical (12) Asthma, mild: Code(s): J45.909 - Unspecified asthma, uncomplicated Category: Medical Qualifiers: Asthma persistence: intermittent Asthma complication type: uncomplicated Qualified Code(s): J45.20 - Mild intermittent asthma, unco mplicated Plan History - The patient is a 79-year-old female presenting with the evaluation of chronic cough and dizziness. - The patient reports a jnplb-vkb-z-half-week duration of cough, which varies between dry and slightly productive with faint yellow-tinted phlegm. treated with antibiotic, and has improved - Her cough is particularly bothersome at night, occasionally resulting in prolonged episodes. - The patient's symptoms have shown improvement but have not resolved completely. - She experiences dizziness in the morning, which might be exacerbated by her current medication regimen, including amlodipine, which I am stopping she is on 2.5 mg dose - She mentions consistent fatigue associated with these symptoms. - Notable past experiences include limb edema during previous trips, which she attributes to her use of Amlodipine, leading to its discontinuation. - The patient reports irritation in the mouth and facial puffiness possibly related to hydroxychloroquine use. other medications patient is taking Eliquis Atorvastatin Cetirizine Lexapro Losartan Metoprolol Spironolactone Problem List - Chronic Cough - Dizziness - Hypertension - Edema - Adverse Effects from Amlodipine - Adverse Effects from Hydroxychloroquine - anxiety stable Lipid disorder On chronic blood thinners through Cardiology for paroxysmal atrial fibrillation Patient Instructions - Discontinue Amlodipine as it may cause swelling and contributes to low blood pressure. - To manage the cough, use cough drops and Benzonatate as needed. - Prednisone 5 mg is prescribed for up to five days to reduce inflammation; start immediately and continue for at least three days. - Gargle with saltwater to help alleviate mouth irritation. - Monitor symptoms, and if symptoms worsen or new symptoms develop during travel, consider taking prescribed prednisone or antibiotics. - Wear compression socks while on the plane and as needed during the trip, but remove them at night. - Monitor for facial puffiness and mouth irritation, noting any changes. - Practice caution with standing quickly to reduce dizziness episodes. Medications: New prednisone 5 mg PO DAILY 5 days 5 tabs 0RF
--- OUTSIDE RECORDS SUMMARY | 2024-12-05 14:13 | XMS_ITS ---
Author Organization [facility] Address [address] [place] [phone] Care Team Providers Care Retail Buyer Name Role Phone Glen CASH, Asma Primary Care Provider Kaushik Nguyễn [phone] REASON FOR VISIT questions Encounters Encounter Location Date Provider Diagnosis [facility] [address] [place] [phone] 12/16/2023 Kaushik Lima Plan Of Treatment No Information Progress Notes * OMAR THOMAS MDOB: 7 (78 yo F)Acc No.[id number]:12/16/2023 Patient:?OMAR THOMAS :1945???Age:78 Y???Sex:Female Address:[address] [place] [address] * true * Date:? Generated for Bibiana webb/Hannah/eTransmitting on:?12/05/2024 02:13 PM EDT
--- OUTSIDE RECORDS SUMMARY | 2024-12-05 14:13 | XMS_ITS ---
Author Organization [facility] Address [address] [place] [phone] Care Team Providers Care Reed Man Name Role Phone [facility], [facility] Primary Care Provider Kaushik Nguyễn [phone] REASON FOR VISIT screening,fam hx colon ca Problems Problem Type SNOMED Code ICD Code Onset Dates Problem Status W/U Status Risk Notes Problem Diverticular disease of colon (529125718) Diverticulosis of large intestine without perforation or abscess without bleeding (K57.30) Active confirmed Problem Chronic gastritis (4404267) Gastritis, chronic (K29.50) Active confirmed Problem Gastroesophageal reflux disease (333858516) Esophageal reflux disease (K21.9) Active confirmed Encounters Encounter Location Date Provider Diagnosis [facility] Outpatient [address] [place] [phone] 12/15/2023 Kaushik Lima Encounter for scre ening [...] OMAR THOMAS MDOB: 7 (79 yo F)Acc No.[id number]:12/15/2023 EGD and COL/MAC Patient:?OMAR THOMAS Provider:?Kaushik Lima MD :1945???Age:78 Y???Sex:Female D ate:12/15/2023 Address:[address] [place] [address] Pcp:Bola Carroll MD Subjective: * Chief Complaints: [...] FLW-UP 10 YRS DOCD, Modifiers: 1P , 95046 UPPR GI ENDOSCOPY, DIAGNOSIS * * The named appointment provid er may or may not be the originator of this progress note, and it is not deemed complete until electronically signed by the appointment provider. Sign off status: Pending * Provider:?Kaushik Lima MD Date:? 024 Generated for Bibiana webb/Hannah/eTransmitting on:?12/05/2024 02:13 PM EDT
--- OUTSIDE RECORDS SUMMARY | 2024-12-05 14:14 | XMS_ITS ---
Author Organization [facility] Address [address] [place] [phone] Care Team Providers Care Master Lay Out Specialist Name Role Phone Glen CASH, Asma Primary Care Provider Kaushik Nguyễn [phone] Encounters Encounter Location Date Provider Diagnosis [facility] [address] [place] [phone] 11/07/2023 Kaushik Lima Plan Of Treatment No Information Progress Notes * OMAR THOMAS MDOB: 7 (78 yo F)Acc No.[id number]:11/07/2023 Patient:?OMAR THOMAS :1945???Age:78 Y???Sex:Female Address:[address] [place] [address] * true * Date:? Generated for Bibiana webb/Hannah/eTransmitting on:?12/05/2024 02:13 PM EDT
--- OUTSIDE RECORDS SUMMARY | 2024-12-05 14:14 | XMS_ITS | Patient Health Record ---
Author Organization [facility] Edmar otilio Hernández Address [address] [place] [address] Care Team Providers Care Heel Seat Fitter Name Role Phone Glen CASH, Asma Primary Care Provider Molina Arcos Unavailable [phone] Allergies Allergen (clinical drug ingredient) Drug/Non Drug [...] D3 Active Alaway Active Systane prn Active Dinkey Operator Slag Syringe every 3 weeks Active Metamucil Active [...] Status Risk Notes Problem Plantar fascial fibromatosis (76922664) Plantar fascial fibromatosis (M72.2) Active confirmed Plan Of Treatment Pending Test Test Name Order Date X ray : Foot, left 3V 11/12/2021 [id number] TENDON SHEATH/LIGAMENT 0 01/27/2022 [id number] TENDON SHEATH/LIGAMENT 0 03/10/2022 Insurance Providers Payer Name Payer Address Payer Phone Subscriber Number Group Number Insured Name Patient Relationship to Insured Coverage Start Date Coverage End Date Medicare [employer] [address] [facility] [place] [address] [id number] Merlyn Morris Self - patient is the insured [employer] ([facility]) [address] [place] [address] [phone] [id number] Merlyn Morris Self - patient is [...]
--- OUTSIDE RECORDS SUMMARY | 2024-12-05 14:14 | XMS_ITS ---
Author Organization [facility] Address [address] [place] [address] Care Team Providers Care Cattle Knocker Name Role Phone Glen CASH, Asma Primary Care Provider Molina Arcos Unavailable [phone] Allergies Allergen (clinical drug ingredient) Drug/Non Drug [...] Active Delsym prn Active Escitalopram Oxalate Active Hand Spinner Syringe every 3 weeks Active Clobetasol 17 [...] 08/03/2023 Encounters Encounter Location Date Provider Diagnosis [facility] [place] [address] [place] [phone] 08/03/2023 Molina Kaur Plantar fascial fibromatosis M72.2 [...] Notes * Julissa THOMASOB:1945 (78 yo F)Acc No.[id number]:08/03/2023 Progress Note Patient:?Torinsabiha Merlyn Provider:?Molina Kaur DPM :1945???Age:78 Y???Sex:Female D ate:08/03/2023 Address:[address] [place], [place] [phone] Pcp:Bola Carroll MD Subjective: * Chief Complaints: [...] 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 * Medications:?TakingClobetaso l 17 Propionate Alaway Hand Spinner Syringe , Notes: every 3 weeksAtorvastatin Calcium [...] dayTaking Clobetasol 17 Propionate Taking Alaway Taking Hand Spinner Syringe , Notes: every 3 weeksTaking Atorvastatin [...] DPM Date:? 023 Generated for Bibiana webb/Hannah/Radha on:?12/05/2024 02:13 PM EDT History and Physical Notes * [...]
--- OUTSIDE RECORDS SUMMARY | 2024-12-05 14:14 | XMS_ITS | Patient Health Record ---
Author Organization [facility] Address [address] [place] [address] Care Team Providers Care Basting Marker Name Role Phone Glen CASH, Asma Primary Care Provider Kaushik Nguyễn Unavailable [phone] Allergies Allergen (clinical drug ingredient) Drug/Non Drug [...] Problem Status W/U Status Risk Notes Problem 869580792 Colon cancer screening (Z12.11) Active confirmed Problem 425681089 Change in bowel habit (R19.4) Active confirmed Problem Diverticular disease of colon (097399583) Diverticulosis of large intestine without perforation or abscess without bleeding (K57.30) Active confirmed Problem 01584410 Cough (R05) Active confirmed Problem Chronic gastritis (3377886) Gastritis, chronic (K29.50) Active confirmed Problem 573799585 Current use of halfway anticoagulation (Z79.01) Active confirmed Problem 23341065 Irritable bowel syndrome, unspecified type (K58.9) Active confirmed Problem Gastroesophageal reflux disease (742181470) Esophageal reflux disease (K21.9) Active confirmed Problem 999587550 Family hx of col on cancer (Z80.0) Active confirmed Encounters Encounter Location Date Provider Diagnosis [facility] Outpatient [address] [place], [place] [phone] 12/15/2023 Kaushik Lima Encounter for screen ing colonoscopy Z12.11 ; Diverticulosis of large intestine without perforation or abscess without bleeding K57.30 ; Other hemorrhoids K64.8 ; Hiatal hernia K44.9 ; Gastritis, chronic K29.50 and Esophageal reflux disease K21.9 [facility] [address] [place] [address] 12/16/2023 Kaushik Lima Assessments Encounter Date Diagnosis [...] Date MEDICARE OF [place] [address] [place] [address] [id number] MARTHA OMAR Self - patient is the insured [facility] [address] [place] [address] [id number] OMAR THOMAS Self - patient is the insured Medical (General) History Medical History History ICD Code Hypertension Mild asthma on PFT's--sees Dr. Nghia Lopez [place],DM,CVA,renal disease Negative colonoscopies in , 2002,2007, and 2013--neg. 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 Mendoza and Dr. Graciela fernandez Eczema Anxiety Allergy injections once a month Urinary incontinence Afib-sees Dr. Nigel Zamora--2 cardioversions - Sleep apnea-uses CPAP Surgical History Surgery Date(Month/Year) Breast biopsy--benign Deviated septum
== END 2024-12-05 12:58 | disposition home or self-care (01) ==
LOC: HO.HMCC 11:53
PROVIDERS: PCP Internal Medicine; Visit Provider Internal Medicine
DX: R42 Dizziness and giddiness (principal); I48.0 Paroxysmal atrial fibrillation; M35.00 Sjogren syndrome, unspecified; R05.8 Other specified cough; L93.0 Discoid lupus erythematosus; R79.89 Other specified abnormal findings of blood chemistry; R06.02 Shortness of breath; G47.33 Obstructive sleep apnea (adult) (pediatric); Z99.89 Dependence on other enabling machines and devices; Z91.09 Other allergy status, other than to drugs and biological substances; I10 Essential (primary) hypertension

== ENCOUNTER → 2024-12-05 11:53 | Outpatient (BNVA) | payer MEDICARE, OTHER, SELFPAY | PROVIDERS: PCP Internal Medicine; Visit Provider Internal Medicine | DX: R42 Dizziness and giddiness (principal); L93.0 Discoid lupus erythematosus; I48.0 Paroxysmal atrial fibrillation; R79.89 Other specified abnormal findings of blood chemistry; R06.02 Shortness of breath; G47.33 Obstructive sleep apnea (adult) (pediatric); Z99.89 Dependence on other enabling machines and devices; M35.00 Sjogren syndrome, unspecified; I10 Essential (primary) hypertension; F41.1 Generalized anxiety disorder; J45.20 Mild intermittent asthma, uncomplicated; Z91.09 Other allergy status, other than to drugs and biological substances | CPT/HCPCS: 96127; 99212 ==

== ENCOUNTER 2025-01-24 10:53 | Outpatient (REF) | payer MEDICARE, OTHER, SELFPAY ==
[2025-01-24 13:15] LABS: MANUAL DIFF FLAG NO
[2025-01-24 13:19] LABS: Basophils Percent Auto 0.5 % (0-2); Eosinophils Absolute Auto 0.3 X10*3/uL (0.0-0.4); Eosinophils Percent Auto 4.5 % (0-4); Hematocrit 39.9 % (37.0-47.0); Imm Gran Abs Auto 0.02 X10*3/uL (0.00-0.03); Imm Gran Pct Auto 0.3 % (0.0-0.4); Lymphocytes Absolute Auto 0.9 X10*3/uL (1.2-4.9); Lymphocytes Percent Auto 14.1 % (20-40); Mean Corpuscular HGB Conc 32.6 g/dl (31.0-35.0); Mean Corpuscular Hemoglobin 29.1 pg (27.0-33.0); Mean Corpuscular Volume 89.3 fL (80.0-98.0); Monocytes Absolute Auto 0.8 X10*3/uL (0.1-1.2); Monocytes Percent Auto 12.9 % (2-11); Neutrophils Absolute Auto 4.1 x10*3/uL (2.0-8.3); Neutrophils Percent Auto 67.7 % (45-73); Platelet Count 224 X10*3/uL (160-400); Red Blood Count 4.47 X10*6/uL (4.20-5.50); Red Cell Distribution Width 13.9 % (11.0-16.0)
[2025-01-24 14:46] LABS: Alanine Aminotransferase 27 U/L (0-31); Albumin Level 4.5 g/dL (3.5-5.0); Anion Gap 12 (12-20); Aspartate Amino Transferase 31 U/L (5-31); Bilirubin Total 0.8 mg/dL (0.0-1.0); Blood Urea Nitrogen 18 mg/dL (9-16); Calcium 9.7 mg/dL (8.4-10.2); Carbon Dioxide 27 mmol/L (22-29); Chloride 97 mmol/L (96-108); Estimated Glomerular Filt Rate > 60; Glucose Random 99 mg/dL (60-115); Potassium 4.3 mmol/L (3.3-5.1); Sodium 132 mmol/L (135-145); Total Protein 7.4 g/dL (6.5-8.0)
[2025-01-24 14:57] LABS: Alkaline Phosphatase 126 U/L (39-117)
== END 2025-01-24 10:54 | disposition home or self-care (01) ==
LOC: HO.HMGCLDS 10:53
PROVIDERS: PCP Internal Medicine; Visit Provider Internal Medicine
DX: R53.1 Weakness (principal); R43.9 Unspecified disturbances of smell and taste; I48.0 Paroxysmal atrial fibrillation; R09.89 Other specified symptoms and signs involving the circulatory and respiratory systems; L93.0 Discoid lupus erythematosus; R06.02 Shortness of breath; Z79.01 Long term (current) use of anticoagulants; Z79.899 Other long term (current) drug therapy
CPT/HCPCS: 36415; 80053; 85025; 99212

== ENCOUNTER 2025-01-24 10:53 | Outpatient (AMB) | payer MEDICARE, OTHER, SELFPAY ==
[2025-01-24 11:03] VITALS: BP 126/80; PULSE 77; TEMP 36.4; O2SAT 98; BMI 25.0
--- NOTE | 2025-01-24 11:03 | A.OFFPC_ITS ---
Vital Signs 01/24/25 11:03 Height 5 ft 6 in Weight 155 lb BMI 25.0 BP 126/80 Blood Pressure Location Rt brachial Position Sitting Pulse 77 Pulse Source Pulse Oximeter Temp 97.6 F Temp Source Oral Pulse Oximetry (%) 98 Oxygen Delivery Method Room Air Intake Visit Reasons: Norovirus Allergies amoxicillin Allergy (Severe, Verified 12/05/24 12:05) nausea headache dizzy weak bed ridden for 2 days albuterol Allergy (Unknown, Verified 12/05/24 12:05) Shortness of Breath OLIMPIA Inhibitors Adverse Reaction (Verified 12/05/24 12:05) Cough mepivocaine Allergy (Severe, Uncoded 11/15/24 13:15) dizziness, weak, nausea Medication List - Last Reconciled 01/24/25 by Bola Carroll MD acetaminophen (Tylenol Extra Strength) 500 mg PO Q6H PRN amlodipine 2.5 mg PO DAILY apixaban (Eliquis) 5 mg PO BID atorvastatin 10 mg PO DAILY cetirizine (Zyrtec) 10 mg PO DAILY PRN cholecalciferol (vitamin D3) (Vitamin D3) 25 mcg PO DAILY clobetasol 0.05% grams topical BID coenzyme Q10 (Co Q-10) 200 mg PO DAILY dapagliflozin propanediol (Farxiga) 10 mg PO DAILY escitalopram oxalate 5 mg PO DAILY 90 days fluocinolone 0.025% appl topical hydroxychloroquine mg PO ketotifen fumarate 0.025%(0.035%) (Alaway) 1 drp ophthalmic (eye) Q8H losartan 50 mg PO BID 90 days [Metamucil PO BID] metoprolol succinate ER 25 mg PO DAILY 90 days omega-3 fatty acids (Fish Oil Concentrate) 1,000 mg PO DAILY prednisone 5 mg PO DAILY 5 days psyllium husk (Metamucil) 0.4 grams PO DAILY spironolactone mg PO DAILY triamcinolone acetonide 0.1% appl topical BID Tobacco use date assessed: 12/05/24 Dental Screening Dental Screen Date: 12/05/24 HPI Norovirus HPI Details History - The patient is a 80-year-old female wi th a history of paroxysmal atrial fibrillation, discoid lupus erythematosus presenting with persistent dysgeusia and weakness following a suspected norovirus infection on a cruise in December. - The norovirus infection led to violent vomiting and diarrhea, lasting approximately four hours. - Post-infection, the patient experience d extreme weakness, ongoing for six weeks. - There's a persistent bad taste in her mouth and her sense of smell might be altered, as noted when she couldn't detect lilac scent her could. - Reports of occasional dizziness, parti cularly in the morning, are not completely new but persistent. - She experiences shortness of breath, c ontinuing despite cardiological management. - The patient suspects the altered taste began before the cruise illness. - History includes a potential allergic response to medication hydroxychloroquine, which is managed by tapering. - She is currently on several medication s for underlying conditions including heart disease and systemic lupus erythematosus. Medications - Amlodipine 2.5 mg for hypertension - Eliquis for anticoagulation (cardiac a rrhythmia risk) - Atorvastatin for hyperlipidemia - Hydroxychloroquine for lupus managemen t - Cetirizine 5 mg for allergies - Losartan 50 mg BID for hypertension - Metoprolol for hypertension/heart rate control - Spironolactone for heart failure manag ement Problem List - Norovirus infection - Dysgeusia - chronic allergic Sinusitis - Dizziness chronic - Shortness of breath - Systemic lupus erythematosus (with ski n involvement) - Hypertension - Heart failure (fluid retention) - Cardiac arrhythmia (on anticoagulation ) - Potential medication side effects Ewiiaapaayp of Care Seen by transportation coordinator and fisheries technician recently Patient Instructions - Get electrolytes checked due to previo us vomiting and persistent weakness. - Stay adequately hydrated; drink small amounts of liquid regularly. - Monitor for yeast infections and use M onistat cream if needed. Since patient has been recently started on Farxiga by transportation coordinator - Await and follow-up on laboratory test results. Review of Systemsg General: No fever no chills neurological: No headaches ear nose throat: No sore throat no hearing difficulty no ear pain cardiovascular: No syncope, no chest pain endocrine: No polyuria polydipsia no heat intolerance genitourinary: No dysuria Physical Exam general: No acute distress HEENT: No acute findings, but reports of bad taste in mouth and possible altered sense of smell neck: Supple respiratory system: Able to talk in full sentences, no audible wheeze, no stridor, mild crackles at the bases both lungs cardiovascular: S1-S2 irregularly irregular gastrointestinal: No pain, but history of vomiting and diarrhea extremities: No new findings REPORT ANALYST: Alert, awake, oriented x3, motor sensory intact skin: Normal turgor [facility] Medical History A-fib SOB (shortness of breath) History of cardioversion (~2021) Constipation Seasonal allergies Hiatal hernia Sclerosis of the skin Discoid lupus Eczema Obstructive sleep apnea on CPAP Asthma, mild Hiatal hernia Atrial septal defect Sjogrens syndrome YODIT positive Allergic rhinitis Environmental allergies Hypertension, essential Surgical History History of colonoscopy Family History Father CAD (coronary artery disease) Substance use disorder Mother Colon cancer Diabetes mellitus CAD (coronary artery disease) Kidney problem Breast cancer BRCA negative HTN (hypertension) Stroke PONV (postoperative nausea and vomiting) Sister HTN (hypertension) Maternal Grandmother Unknown family medical history Maternal Grandfather No problems noted. Paternal Grandfather No problems noted. Paternal Grandmother No problems noted. Maternal Aunt Breast cancer Brother No problems noted. Sister No problems noted. Social History Household Members: Spouse Housing: House Are you a primary home health caregiver to a significant other at home: No Do you presently have visiting nurse or other home services: No Alcohol intake: current Alcohol intake frequency: holidays/special occasions only Patient Tobacco Use Status: Never used Tobacco e-Cigarette/Vaping Use: Never Used Second Hand Smoke Exposure: Yes ( smokes) service: No Current occupational status: retired Cognitive needs: No Hearing needs: No Vision needs: No Questionnaire Thrive Questionnaire Date Thrive assessed: 12/05/24 MELISA-7 AMB Questionnaire MELISA-7 Date MELISA - 7 assessed: 12/05/24 Source: Developed by Drs. Kaushik Simons, Lizzette Shirley, Arnav Pritchard and colleagues, with an educational romina from [email or web address]. Physical exam (Primary Care) Vital Signs: Last Vital Signs Temp 97.6 F 01/24/25 11:03 Pulse 77 01/24/25 11:03 BP 126/80 01/24/25 11:03 Pulse Ox 98 01/24/25 11:03 Oxygen Delivery Method Room Air 01/24/25 11:03 BMI result Body Mass Index 25.0 Tobacco/Smoking Status: Tobacco use Status Tobacco use date assessed 12/05/24 01/24/25 11:03 Patient Tobacco Use Status Never used Tobacco 01/24/25 11:03 e-Cigarette/Vaping Use Never Used 01/24/25 11:03 Thrive Assessment: Date of Thrive Assessment Date Thrive assessed 12/05/24 01/24/25 11:03 Coding Level of Care Code Est Pt Level 4 (35312) Diagnoses Weakness R53.1 Taste disorder R43.9 Paroxysmal atrial fibrillation I48.0 Respiratory crackles at both lung bases R09.89 Discoid lupus erythematosus L93.0 Shortness of breath R06.02 Assessment & Plan Assessment & Plan (1) Weakness: Code(s): R53.1 - Weakness Category: Medical (2) Taste disorder: Code(s): R43.9 - Unspecified disturbances of smell and taste Category: Medical (3) Paroxysmal atrial fibrillation: Code(s): I48.0 - Paroxysmal atrial fibrillation Category: Medical (4) Respiratory crackles at both lung bases: Code(s): R09.89 - Other specified symptoms and signs involving the circulatory and respiratory systems Category: Medical (5) Discoid lupus erythematosus: Code(s): L93.0 - Discoid lupus erythematosus Category: Medical (6) Shortness of breath: Code(s): R06.02 - Shortness of breath Category: Medical Plan History - The patient is a 80-year-old female with a history of paroxysmal atrial fibrillation, discoid lupus erythematosus presenting with persistent dysgeusia and weakness following a suspected norovirus infection on a cruise in December. - The norovirus infection led to violent vomiting and diarrhea, lasting approximately four hours. - Post-infection, the patient experienced extreme weakness, ongoing for six weeks. - There's a persistent bad taste in her mouth and her sense of smell might be altered, as noted when she couldn't detect lilac scent her could. - Reports of occasional dizziness, particularly in the morning, are not c ompletely new but persistent. - She experiences shortness of breath, continuing despite cardiological management. - The patient suspects the altered taste began before the cruise illness. - History includes a potential allergic response to medication hydroxychloroquine, which is managed by tapering. - She is currently on several medications for underlying conditions including heart disease and systemic lupus erythematosus. Medications - Amlodipine 2.5 mg for hypertension - Eliquis for anticoagulation (cardiac arrhythmia risk) - Atorvastatin for hyperlipidemia - Hydroxychloroquine for lupus management - Cetirizine 5 mg for allergies - Losartan 50 mg BID for hypertension - Metoprolol for hypertension/heart rate control - Spironolactone for heart failure management Problem List - Norovirus infection - Dysgeusia - chronic allergic Sinusitis - Dizziness chronic - Shortness of breath - Systemic lupus erythematosus (with skin involvement) - Hypertension - Heart failure (fluid retention) - Cardiac arrhythmia (on anticoagulation) - Potential medication side effects Ewiiaapaayp of Care Seen by transportation coordinator and fisheries technician recently Patient Instructions - Get electrolytes checked due to previous vomiting and persistent weakness. - Stay adequately hydrated; drink small amounts of liquid regularly. - Monitor for yeast infections and use Monistat cream if needed. Since patient has been recently started on Farxiga by transportation coordinator - Await and follow-up on laboratory test results. Orders: Orders Complete Blood Count Auto Diff Today R53.1 - Weakness Comprehensive Met. Panel Today R53.1 - Weakness
--- OUTSIDE RECORDS SUMMARY | 2025-01-24 12:20 | XMS_ITS ---
Author Organization [facility] Address [address] [place] [phone] Care Team Providers Care Municipal Court Judge Name Role Phone Glen CASH, Asma Primary Care Provider Kaushik Nguyễn [phone] Encounters Encounter Location Date Provider Diagnosis [facility] [address] [place] [phone] 11/07/2023 Kaushik Lima Plan Of Treatment No Information Progress Notes * OMAR THOMAS MDOB: 7 (78 yo F)Acc No.[id number]:11/07/2023 Patient:?OMAR THOMAS :1945???Age:78 Y???Sex:Female Address:[address] [place] [address] * true * Date:? Generated for Bibiana webb/Hannah/eTransmitting on:?01/24/2025 12:20 PM EDT
--- OUTSIDE RECORDS SUMMARY | 2025-01-24 12:20 | XMS_ITS ---
Author Organization [facility] Address [address] [place] [address] Care Team Providers Care Silver Spray Worker Name Role Phone Glen CASH, Asma Primary Care Provider Kaushik Nguyễn [phone] REASON FOR VISIT questions Encounters Encounter Location Date Provider Diagnosis [facility] [address] [place] [phone] 12/16/2023 Kaushik Lima Plan Of Treatment No Information Progress Notes * OMAR THOMAS MDOB: 7 (78 yo F)Acc No.[id number]:12/16/2023 Patient:?OMAR THOMAS :1945???Age:78 Y???Sex:Female Address:[address] [place] [id number] * true * Date:? Generated for Bibiana webb/Hannah/eTransmitting on:?01/24/2025 12:20 PM EDT
--- OUTSIDE RECORDS SUMMARY | 2025-01-24 12:20 | XMS_ITS ---
Author Organization [facility] Address [address] [place] [address] Care Team Providers Care Truck Rental Service Attendant Name Role Phone Glen CASH, [facility] Primary Care Provider Kaushik Nguyễn [phone] REASON FOR VISIT screening,fam hx colon ca Problems Problem Type SNOMED Code ICD Code Onset Dates Problem Status W/U Status Risk Notes Problem Diverticular disease of colon (566888238) Diverticulosis of large intestine without perforation or abscess without bleeding (K57.30) Active confirmed Problem Chronic gastritis (8577724) Gastritis, chronic (K29.50) Active confirmed Problem Gastroesophageal reflux disease (855750072) Esophageal reflux disease (K21.9) Active confirmed Encounters Encounter Location Date Provider Diagnosis [facility] [address] [place] [phone] 12/15/2023 Kaushik Lima Encounter for scre ening [...] OMAR THOMAS MDOB: 7 (80 yo F)Acc No.[id number]:12/15/2023 EGD and COL/MAC Patient:?OMAR THOMAS Provider:?Kaushik Lima MD :1945???Age:78 Y???Sex:Female D ate:12/15/2023 Address:[address] [place] [address] Pcp:Bola Carroll MD Subjective: * Chief Complaints: [...] FLW-UP 10 YRS DOCD, Modifiers: 1P , 20038 UPPR GI ENDOSCOPY, DIAGNOSIS * * The named appointment provid er may or may not be the originator of this progress note, and it is not deemed complete until electronically signed by the appointment provider. Sign off status: Pending * Provider:?Kaushik Lima MD Date:? 024 Generated for Bibiana webb/Hannah/eTransmitting on:?01/24/2025 12:20 PM EDT
--- OUTSIDE RECORDS SUMMARY | 2025-01-24 12:20 | XMS_ITS | Patient Health Record ---
Author Organization [facility] Edmar otilio Hernández Address [address] [place] [address] Care Team Providers Care Services Coordinator Name Role Phone Glen CASH, Asma Primary Care Provider Molina Arcos Unavailable [phone] Allergies Allergen (clinical drug ingredient) Drug/Non Drug [...] D3 Active Alaway Active Systane prn Active Asbestos Hazard Abatement Worker Syringe every 3 weeks Active Metamucil Active [...] Status Risk Notes Problem Plantar fascial fibromatosis (22639315) Plantar fascial fibromatosis (M72.2) Active confirmed Plan Of Treatment Pending Test Test Name Order Date X ray : Foot, left 3V 11/12/2021 [id number] TENDON SHEATH/LIGAMENT 0 01/27/2022 [id number] TENDON SHEATH/LIGAMENT 0 03/10/2022 Insurance Providers Payer Name Payer Address Payer Phone Subscriber Number Group Number Insured Name Patient Relationship to Insured Coverage Start Date Coverage End Date Medicare National [employer] [address] [place] [address] [id number] Merlyn Morris Self - patient is the insured [employer] ([facility]) [address] [place] [address] [id number] Merlyn Morris Self - patient is [...]
--- OUTSIDE RECORDS SUMMARY | 2025-01-24 12:20 | XMS_ITS ---
[facility] Address [address] [place] [address] Care Team Providers Care Director Presales Name Role Phone Glen CASH, Asma Primary Care Provider Molina Arcos Unavailable [phone] Allergies Allergen (clinical drug ingredient) Drug/Non Drug [...] Active Delsym prn Active Escitalopram Oxalate Active Clipman Syringe every 3 weeks Active Clobetasol 17 [...] 08/03/2023 Encounters Encounter Location Date Provider Diagnosis [facility] [place] [address] [place] [phone] 08/03/2023 Molina Kaur Plantar fascial fibromatosis M72.2 [...] Notes * Julissa THOMASOB:1945 (78 yo F)Acc No.[id number]:08/03/2023 Progress Note Patient:?Torinsabiha Merlyn Provider:?Molina Kaur DPM :1945???Age:78 Y???Sex:Female D ate:08/03/2023 Address:[address] [place], [place] [phone] Pcp:Bola Carroll MD Subjective: * Chief Complaints: [...] teacher. * Medications:?TakingClobetaso l 17 Propionate Alaway Clipman Syringe , Notes: every 3 weeksAtorvastatin Calcium [...] dayTaking Clobetasol 17 Propionate Taking Alaway Taking Clipman Syringe , Notes: every 3 weeksTaking Atorvastatin [...] DPM Date:? 023 Generated for Bibiana webb/Hannah/Radha on:?01/24/2025 12:20 PM EDT History and Physical Notes * [...]
--- OUTSIDE RECORDS SUMMARY | 2025-01-24 12:21 | XMS_ITS | Patient Health Record ---
Author Organization [facility] Address [address] [place] [phone] Care Team Providers Care Pension Agent Name Role Phone Glen CASH, Asma Primary Care Provider Kaushik Nguyễn Unavailable [phone] Allergies Allergen (clinical drug ingredient) Drug/Non Drug [...] Problem Status W/U Status Risk Notes Problem 979806633 Colon cancer screening (Z12.11) Active confirmed Problem 976604470 Change in bowel habit (R19.4) Active confirmed Problem Diverticular disease of colon (753904886) Diverticulosis of large intestine without perforation or abscess without bleeding (K57.30) Active confirmed Problem 00022883 Cough (R05) Active confirmed Problem Chronic gastritis (1822574) Gastritis, chronic (K29.50) Active confirmed Problem 433117901 Current use of ferry terminal agent anticoagulation (Z79.01) Active confirmed Problem 92901027 Irritable bowel syndrome, unspecified type (K58.9) Active confirmed Problem Esophageal reflu x disease (K21.9) Active confirmed Problem 043664657 Family hx of col on cancer (Z80.0) Active confirmed Plan Of Treatment Future Test Test Name Order Date COLONOSCOPY 04/18/2013 COLONOSCOPY 07/13/2023 Insurance Providers Payer Name Payer Address Payer Phone Subscriber Number Group Number Insured Name Patient Relationship to Insured Coverage Start Date Coverage End Date MEDICARE OF [place] [address] [place] [address] [id number] MARTHA OMAR Self - patient is the insured [facility] [employer] [address] [place] [address] [id number] OMAR THOMAS Self - patient is the insured Medical (General) History Medical History History ICD Code Hypertension Mild asthma on PFT's--sees Dr. Agrawal Denies GA,DM,CVA,renal disease Negative colonoscopies in , 2002,2007, and 2013--neg. 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 Mendoza and Dr. Graciela fernandez Eczema Anxiety Allergy injections once a month Urinary incontinence Afib-sees Dr. Nigel Zamora--2 cardioversions - Sleep apnea-uses CPAP Surgical History Surgery Date(Month/Year) Breast biopsy--benign Deviated septum
== END 2025-01-24 16:30 | disposition home or self-care (01) ==
LOC: HO.HMCC 10:54
PROVIDERS: PCP Internal Medicine; Visit Provider Internal Medicine
DX: R53.1 Weakness (principal); R43.9 Unspecified disturbances of smell and taste; I48.0 Paroxysmal atrial fibrillation; R09.89 Other specified symptoms and signs involving the circulatory and respiratory systems; L93.0 Discoid lupus erythematosus; R06.02 Shortness of breath

== ENCOUNTER → 2025-02-15 08:36 | Outpatient (BNVA) | payer MEDICARE, OTHER, SELFPAY | PROVIDERS: PCP Internal Medicine; Visit Provider Internal Medicine | DX: Z13.89 Encounter for screening for other disorder (principal) ==

== ENCOUNTER 2025-02-19 08:50 | Outpatient (REF) | payer MEDICARE, OTHER, SELFPAY ==
--- NOTE | ~2025-02-19 | CT_ITS ---
CLINICAL HISTORY: anosima; sinonasal polyp CT sinuses without contrast Comparison: None Findings: There is bilateral maxillary sinusitis and left ethmoid sinusitis. There is chronic sphenoid and right ethmoid sinusitis. The ostiomeatal units are patent. No shruti bullosa or Germán cells. The nasal airways are patent. No nasal polyps or masses. The orbits are normal. No acute fractures. IMPRESSION: There is bilateral acute maxillary sinusitis and left ethmoid sinusitis. There is chronic sphenoid and right ethmoid sinusitis. This document has been electronically signed by: Santino Gamble MD on 02/19/2025 11:21:09
--- OUTSIDE RECORDS SUMMARY | 2025-02-19 09:16 | XMS_ITS ---
Author Organization [facility] Address [address] [place] [phone] Care Team Providers Care Financial Analysis Advisor Name Role Phone [facility]ASH[facility] Primary Care Provider Kaushik Nguyễn [phone] REASON FOR VISIT screening,fam hx colon ca Problems Problem Type SNOMED Code ICD Code Onset Dates Problem Status W/U Status Risk Notes Problem Diverticular disease of colon (414120000) Diverticulosis of large intestine without perforation or abscess without bleeding (K57.30) Active confirmed Problem Chronic gastritis (9285626) Gastritis, chronic (K29.50) Active confirmed Problem Gastroesophageal reflux disease (919367676) Esophageal reflux disease (K21.9) Active confirmed Encounters Encounter Location Date Provider Diagnosis [facility] [address] [place] [phone] 12/15/2023 Kaushik Lima Encounter for scre ening [...] OMAR THOMAS MDOB: 7 (80 yo F)Acc No.[id number]:12/15/2023 EGD and COL/MAC Patient:?OMAR THOMAS Provider:?Kaushik Lima MD :1945???Age:78 Y???Sex:Female D ate:12/15/2023 Address:[address] [place] [address] Pcp:Bola Carroll MD Subjective: * Chief Complaints: [...] FLW-UP 10 YRS DOCD, Modifiers: 1P , 11881 UPPR GI ENDOSCOPY, DIAGNOSIS * * The named appointment provid er may or may not be the originator of this progress note, and it is not deemed complete until electronically signed by the appointment provider. Sign off status: Pending * Provider:?Kaushik Lima MD Date:? 024 Generated for Bibiana webb/Hannah/eTransmitting on:?02/19/2025 09:15 AM EDT
== END 2025-02-19 08:51 | disposition home or self-care (01) ==
LOC: HO.CT 08:50
PROVIDERS: PCP Internal Medicine; Visit Provider Otolaryngology
DX: J33.0 Polyp of nasal cavity (principal); R43.0 Anosmia
CPT/HCPCS: 70486

== ENCOUNTER 2025-03-07 12:57 | Outpatient (AMB) | payer MEDICARE, OTHER, SELFPAY ==
--- OUTSIDE RECORDS SUMMARY | 2023-12-15 05:50 | XMS_ITS ---
Author Organization [facility] Address [address] [place] [id number] Care Team Providers Care Courier Driver Name Role Phone Glen CASH, [facility] Primary [facility] Provider Kaushik Nguyễn [phone] REASON FOR VISIT screening,fam hx colon ca Problems Problem Type SNOMED Code ICD Code Onset Dates Problem Status W/U Status Risk Notes Problem Diverticular disease of colon (808218946) Diverticulosis of large intestine without perforation or abscess without bleeding (K57.30) Active confirmed Problem Chronic gastritis (8730313) Gastritis, chronic (K29.50) Active confirmed Problem Gastroesophageal reflux disease (290583118) Esophageal reflux disease (K21.9) Active confirmed Encounters Encounter Location Date Provider Diagnosis [facility] [place] [address] [place] [phone] 12/15/2023 Kaushik Lima Encounter for scre ening colonoscopy Z12.11 ; Diverticulosis of large intestine without perforation or abscess without bleeding K57.30 ; Other hemorrhoids K64.8 ; Hiatal hernia K44.9 ; Gastritis, chronic K29.50 and Esophageal reflux disease K21.9 Assessments Encounter Date Diagnosis (ICD Code) Assessment Notes Treatment Notes Treatment Clinical Notes Section Notes 12/15/2023 Encounter for screening colonoscopy (ICD-10 - Z12.11) 12/15/2023 Diverticulosis of large intestine without perforation or abscess without bleeding (ICD-10 - K57.30) 12/15/2023 Other hemorrhoids (ICD-10 - K64.8) 12/15/2023 Hiatal hernia (ICD-10 - K44.9) 12/15/2023 Gastritis, chronic (ICD-10 - K29.50) 12/15/2023 Esophageal reflux disease (ICD-10 - K21.9) Plan Of Treatment No Information Progress Notes * OMAR THOMAS MDOB: 7 (80 yo F)Acc No.[id number]:12/15/2023 EGD and COL/MAC Patient: OMAR HAND Provider: Maycol Lima MD :1945 A ge:78 Y S ex:Female Date:12/15/2023 Address:[address] [place] [address] Pcp:Bola Carroll MD Subjective: * Chief Complaints: * 1 . Screening,fam hx colon ca. * Medical History: Objective: * Vitals: Assessment: * Assessment: 1. E ncounter for screening colonoscopy - Z12.11 (Primary) 2 . D iverticulosis of large intestine without perforation or abscess without bleeding - K57.30 3 .?Other hemorrhoids - K64.8 4 . H iatal hernia - K44.9 5 . Gastritis, chronic - K29.50 6 . E sophageal reflux disease - K21.9 Plan: * Treatment: * Procedure Codes: G 0121 COLOREC CNCR SCR;COLNSCPY NO HI RSK, 0529F INTRVL 3+YRS PTS CLNSCP DOCD, Modifiers: 8P , 0528F RCMND FLW-UP 10 YRS DOCD, Modifiers: 1P , 56729 UPPR GI ENDOSCOPY, DIAGNOSIS * * The named appointment provid er may or may not be the originator of this progress note, and it is not deemed complete until electronically signed by the appointment provider. Sign off status: Pending * Provider: Maycol Lima MD Date: 0 12/15/2023 Generated for Bibiana webb/Hannah/Corbinitting on: 0 03/07/2025 01:27 PM EDT
[2025-03-07 13:03] VITALS: BP 146/78; PULSE 85; TEMP 36.7; O2SAT 97; BMI 25.0
--- NOTE | 2025-03-07 13:03 | A.OFFPC_ITS ---
Vital Signs 03/07/25 13:03 Height 5 ft 6 in Weight 155 lb BMI 25.0 BP 146/78 H Blood Pressure Location Lt brachial Position Sitting Pulse 85 Pulse Source Pulse Oximeter Temp 98.1 F Temp Source Oral Pulse Oximetry (%) 97 Oxygen Delivery Method Room Air Intake Visit Reasons: Follow up check up Tobacco Drummer Required: No Is last menstrual period known: No Post menopausal: Yes Patient : No Allergies amoxicillin Allergy (Severe, Verified 03/07/25 13:08) nausea headache dizzy weak bed ridden for 2 days albuterol Allergy (Unknown, Verified 03/07/25 13:08) Shortness of Breath OLIMPIA Inhibitors Adverse Reaction (Verified 03/07/25 13:08) Cough mepivocaine Allergy (Severe, Uncoded 11/15/24 13:15) dizziness, weak, nausea Medication List - Last Reconciled 03/07/25 by Bola Carroll MD acetaminophen (Tylenol Extra Strength) 500 mg PO Q6H PRN apixaban (Eliquis) 5 mg PO BID atorvastatin 10 mg PO DAILY cetirizine (Zyrtec) 10 mg PO DAILY PRN cholecalciferol (vitamin D3) (Vitamin D3) 25 mcg PO DAILY clobetasol 0.05% grams topical BID clotrimazole 10 mg mucous membrane TID coenzyme Q10 (Co Q-10) 200 mg PO DAILY dapagliflozin propanediol (Farxiga) 10 mg PO DAILY escitalopram oxalate 5 mg PO DAILY 90 days fluconazole 100 mg PO DAILY fluocinolone 0.025% appl topical losartan 50 mg PO BID 90 days [Metamucil PO BID] metoprolol succinate ER 25 mg PO DAILY 90 days omega-3 fatty acids (Fish Oil Concentrate) 1,000 mg PO DAILY psyllium husk (Metamucil) 0.4 grams PO DAILY Tobacco use date assessed: 12/05/24 Dental Screening Dental Screen Date: 12/05/24 Did you have a dental visit in the last 12 months?: No Did you have a dental problem in the last 6 months where you did not have access to dental care?: No Was dental information given to patient?: Patient has dentist HPI Follow up check up HPI Details History - The patient is a 80-year-old female pr esenting with concerns regarding electrolyte imbalance. Accompanied by steam shovel operating engineer notified her of abnormal electrolyte levels following recent blood tests, but the nuclear physicist's office later reported normal results, prompting her visit to primary care. - The patient reports a three-month hist ory of persistent anosmia and a metallic taste in her mouth. Previous evaluation by an ENT and a CT scan diagnosed her with sinusitis. She completed a course of Z-Dominik, steroids, and Cimetidine with no resolution of symptoms and has been started on antifungal treatment. - Chronic sinusitis and allergies have b een explored as potential causes, with ongoing nasal congestion and no improvement after antibiotic therapy. Patient has a long history of allergies and is getting allergy vaccine Her current ENT specialist Dr. Mistry is retiring patient need a new referral to see allergy museum informatics specialist I will be booking her appointment with the Neurology as well to explore Center reason for anosmia Hypertension: Blood pressure is running low, patient is on losartan 50 mg b.i.d., we will be cutting it down to losartan 25 mg b.i.d. She is monitoring blood pressure at home and it is running at times below 100 systolic, she does complain of dizziness as well Medical History: - Chronic Sinusitis - Nasal congestion with allergies - Concerns about electrolyte imbalance - anosmia Social History: - [place] [facility]. - Experiencing dietary changes due to th e metallic taste causing alterations in the sense of taste and appetite. [place] of Care - Priming Mixture Carrier: Reported abnormal elect rolytes. - Calender Worker Helper: Reviewed blood results, stated they were normal, no action needed. - ENT: Managed sinusitis, completed CT s can, prescribed various medications. - Consideration for neurology referral d iscussed but not finalized. Patient Instructions - Monitor blood pressure and report read ings if they fall below 100. - May split Losartan pills and take half if blood pressure remains low and causes dizziness. 25 mg twice a day or 50 mg once a day - book appointment with new allergy immu nology and ENT - Avoid stressing about minor lab varian cata - see the neurologist as well, referral placed Review of Systems General: No fever no chills neurological: No headaches ear nose throat: No sore throat no hearing difficulty no ear pain cardiovascular: No syncope, no chest pain, gastrointestinal: No nausea vomiting or diarrhea endocrine: No polyuria polydipsia no heat intolerance genitourinary: No dysuria skin: No new complaints Physical Exam general: No acute distress HEENT: Chronic sinusitis noted neck: Supple respiratory system: Able to talk in full sentences, no audible wheeze no stridor cardiovascular: S1-S2 gastrointestinal: No pain extremities: No new findings RENTAL COUNTER CLERK: Alert awake oriented x3 motor sensory intact skin: Normal turgor, pigmentation noted [facility] Medical History A-fib SOB (shortness of breath) History of cardioversion (~2021) Constipation Seasonal allergies Hiatal hernia Sclerosis of the skin Discoid lupus Eczema Obstructive sleep apnea on CPAP Asthma, mild Hiatal hernia Atrial septal defect Sjogrens syndrome YODIT positive Allergic rhinitis Environmental allergies Hypertension, essential Surgical History History of colonoscopy Family History Father CAD (coronary artery disease) Substance use disorder Mother Colon cancer Diabetes mellitus CAD (coronary artery disease) Kidney problem Breast cancer BRCA negative HTN (hypertension) Stroke PONV (postoperative nausea and vomiting) Sister HTN (hypertension) Maternal Grandmother Unknown family medical history Maternal Grandfather No problems noted. Paternal Grandfather No problems noted. Paternal Grandmother No problems noted. Maternal Aunt Breast cancer Brother No problems noted. Sister No problems noted. Social History Household Members: Spouse Housing: House Are you a primary toddler caregiver to a significant other at home: No Do you presently have visiting nurse or other home services: No Alcohol intake: current Alcohol intake frequency: holidays/special occasions only Patient Tobacco Use Status: Never used Tobacco e-Cigarette/Vaping Use: Never Used Second Hand Smoke Exposure: Yes ( smokes) Patient : No service: No Current occupational status: retired Cognitive needs: No Hearing needs: No Vision needs: No Questionnaire PHQ-9 Over the last 2 weeks, how often have you been bothered by any of the following problems? 10466 - PHQ-9 Billing: Yes Source: Developed by Drs. Kaushik Simons, Lizzette Shirley, Arnav Pritchard and colleagues, with an educational romina from [employer]. Thrive Questionnaire Date Thrive assessed: 03/07/25 What is your living situation today?: I have a steady place to live Within the past 12 months, did the food you bought not last and you didn't have the money to get more?: Never true Within the past 12 months, did you worry whether your food would run out before you got money to buy more?: Never true Do you have trouble paying for medicines?: No Do you have trouble getting transportation to medical appointments?: No Do you have trouble paying your heating and electricity bill?: No Do you have trouble with day-to-day activities such as bathing, preparing meals, shopping, managing finances, etc.?: No Are you currently unemployed and looking for a job?: No Are you interested in more education?: No Please select the resources that you would like help with: None Currently or been in a relationship where the following occur: No concerns reported THRIVE Score: 0 MELISA-7 AMB Questionnaire MELISA-7 Date MELISA - 7 assessed: 12/05/24 Source: Developed by Drs. Kaushik Simons, Lizzette Shirley, Arnav Pritchard and colleagues, with an educational romina from [employer]. Physical exam (Primary Care) Vital Signs: Last Vital Signs Temp 98.1 F 03/07/25 13:03 Pulse 85 03/07/25 13:03 BP 146/78 H 03/07/25 13:03 Pulse Ox 97 03/07/25 13:03 Oxygen Delivery Method Room Air 03/07/25 13:03 BMI result Body Mass Index 25.0 Tobacco/Smoking Status: Tobacco use Status Tobacco use date assessed 12/05/24 03/07/25 13:15 Patient Tobacco Use Status Never used Tobacco 03/07/25 13:15 e-Cigarette/Vaping Use Never Used 03/07/25 13:15 Thrive Assessment: Date of Thrive Assessment Date Thrive assessed 03/07/25 03/07/25 13:15 Currently or been in a relationship where the following occur: No concerns reported Coding Level of Care Code Est Pt Level 5 (30419) Diagnoses Decreased sense of taste R43.2 Hypotension, unspecified hypotension type I95.9 Hypotension type: unspecified hypotension type Lightheadedness R42 Elevated brain natriuretic peptide (BNP) level R79.89 Environmental allergies Z91.09 Allergic sinusitis J30.9 Anxiety about health R45.89 Paroxysmal atrial fibrillation I48.0 Discoid lupus erythematosus L93.0 Additional Codes PHQ-9 - 94945 - PHQ-9 Billing: Yes ([id number]) Time Spent (min) 41 Comment Discussion with patient and , reviewing chart/reviewing labs/coordination of care Assessment & Plan Assessment & Plan (1) Decreased sense of taste: Code(s): R43.2 - [facility] Category: Medical (2) Low blood pressure: Code(s): I95.9 - Hypotension, unspecified Category: Medical Qualifiers: Hypotension type: unspecified hypotension type Qualified Code(s): I95.9 - Hypotension, unspecified (3) Lightheadedness: Code(s): R42 - Dizziness and giddiness Category: Medical (4) Elevated brain natriuretic peptide (BNP) level: Comment: Due to cardiac condition chronic, under care of Cardiology Code(s): R79.89 - Other specified abnormal findings of blood chemistry Category: Medical (5) Environmental allergies: Code(s): Z91.09 - Other allergy status, other than to drugs and biological substances Category: Medical (6) Allergic sinusitis: Code(s): J30.9 - Allergic rhinitis, unspecified Category: Medical (7) Anxiety about health: Code(s): R45.89 - Other symptoms and signs involving emotional state Category: Medical (8) Paroxysmal atrial fibrillation: Code(s): I48.0 - Paroxysmal atrial fibrillation Category: Medical (9) Discoid lupus erythematosus: Code(s): L93.0 - Discoid lupus erythematosus Category: Medical Plan History - The patient is a 80-year-old female presenting with concerns regarding electrolyte imbalance. Accompanied by steam shovel operating engineer notified her of abnormal electrolyte levels following recent blood tests, but the nuclear physicist's office later reported normal results, prompting her visit to primary care. Her BNP is elevated, Cardiology is aware and it is chronic due to numerous cardiac issues going on - The patient reports a three-month history of persistent anosmia and a metallic taste in her mouth. Previous evaluation by an ENT and a CT scan diagnosed her with sinusitis. She completed a course of Z-Dominik, steroids, and Cimetidine with no resolution of symptoms and has been started on antifungal treatment. - Chronic sinusitis and allergies have been explored as potential causes, with ongoing nasal congestion and no improvement after antibiotic therapy. Patient has a long history of allergies and is getting allergy vaccine Her current ENT specialist Dr. Mistry is retiring patient need a new referral to see allergy museum informatics specialist I will be booking her appointment with the Neurology as well to explore Center reason for anosmia Hypertension: Blood pressure is running low, patient is on losartan 50 mg b.i.d., we will be cutting it down to losartan 25 mg b.i.d. She is monitoring blood pressure at home and it is running at times below 100 systolic, she does complain of dizziness as well Medical History: - Chronic Sinusitis - Nasal congestion with allergies - Concerns about electrolyte imbalance - anosmia Social History: - [place] [facility]. - Experiencing dietary changes due to the metallic taste causing alterations in the sense of taste and appetite. [place] of Care - Priming Mixture Carrier: Reported abnormal electrolytes. - Calender Worker Helper: Reviewed blood results, stated they were normal, no action n eeded. - ENT: Managed sinusitis, completed CT scan, prescribed various medications. - Consideration for neurology referral discussed but not finalized. Patient Instructions - Monitor blood pressure and report readings if they fall below 100. - May split Losartan pills and take half if blood pressure remains low and causes dizziness. 25 mg twice a day or 50 mg once a day - book appointment with new allergy immunology and ENT - Avoid stressing about minor lab variances - see the neurologist as well, referral placed Orders: Referrals Neurology Referral R43.2 - [facility] Referral J30.9 - Allergic rhinitis, unspecified, Z91.09 - Other allergy status, other than to drugs and biological substances
--- OUTSIDE RECORDS SUMMARY | 2025-03-07 13:28 | XMS_ITS | Patient Health Record ---
[facility] Melissacristin Hernández Address [address] [place] [address] Care Team Providers Care Vamp Seamer Name Role Phone Glen CASH, Asma Primary Care Provider Molina Arcos Unavailable [phone] Allergies Allergen (clinical drug ingredient) Drug/Non Drug Allergy documented on EMR Reaction Allergy Type Onset Date Status albuterol Albuterol Unknown Drug Allergy Active amoxicillin Amoxicillin Unknown Drug Allergy Act maria luisa Reason For Referral No Information Medications Medication SIG (Take, Route, Frequency, Duration) Notes Start Date End Date Status Atorvastatin Calcium 10 MG 1 tablet Orally Once a day; Duration: 30 day(s) Active CoQ-10 Active Tacrolimus Active Night Splint AFO - L1930 as directed 11/24/2021 Active Delsym prn Active Triamcinolone & Emollient Not-Taking Escitalopram Oxalate Active Clobetasol 17 Propionate Active Losartan Potassium 50 MG 1 tablet Orally Once a day; Duration: 30 day(s) Active Flecainide Acetate 50 MG as directed Orally Not-Takin g Metoprolol Succinate 25 MG 1 capsule Orally Once a day Active Vitamin D3 Active Alaway Active Systane prn Active Receiving Supervisor Syringe every 3 weeks Active Metamucil Active Eliquis 5 MG as directed Orally Active Physical Therapy . . . 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 Plan Of Treatment Pending Test Test Name Order Date X ray : Foot, left 3V 11/12/2021 [id number] TENDON SHEATH/LIGAMENT 0 01/27/2022 [id number] TENDON SHEATH/LIGAMENT 0 03/10/2022 Insurance Providers Payer Name Payer Address Payer Phone Subscriber Number Group Number Insured Name Patient Relationship to Insured Coverage Start Date Coverage End Date Medicare National Govt Sv[employer] Inc [address] [place] [address] [id number] Merlyn Morris Self - patient is the insured [employer] [address] [place] [address] [id number] Merlyn Morris Self - patient is [...]
== END 2025-03-07 13:45 | disposition home or self-care (01) ==
LOC: HO.HMCC 12:58
PROVIDERS: PCP Internal Medicine; Visit Provider Internal Medicine
DX: R43.2 Parageusia (principal); I48.0 Paroxysmal atrial fibrillation; I95.9 Hypotension, unspecified; R42 Dizziness and giddiness; R79.89 Other specified abnormal findings of blood chemistry; Z91.09 Other allergy status, other than to drugs and biological substances; J30.9 Allergic rhinitis, unspecified; R45.89 Other symptoms and signs involving emotional state; L93.0 Discoid lupus erythematosus

== ENCOUNTER → 2025-03-07 12:57 | Outpatient (BNVA) | payer MEDICARE, OTHER, SELFPAY | PROVIDERS: PCP Internal Medicine; Visit Provider Internal Medicine | DX: R43.2 Parageusia (principal); I95.9 Hypotension, unspecified; R42 Dizziness and giddiness; R79.89 Other specified abnormal findings of blood chemistry; Z91.09 Other allergy status, other than to drugs and biological substances; J30.9 Allergic rhinitis, unspecified; R45.89 Other symptoms and signs involving emotional state; I48.0 Paroxysmal atrial fibrillation; L93.0 Discoid lupus erythematosus | CPT/HCPCS: 96127; 99212 ==

== ENCOUNTER 2025-04-24 13:48 | Outpatient (AMB) | payer MEDICARE, OTHER, SELFPAY ==
--- OUTSIDE RECORDS SUMMARY | 2023-12-15 05:50 | XMS_ITS ---
Author Organization [facility] Address [address] [place] [phone] Care Team Providers Care Sugar Mill Worker Name Role Phone Glen [facility]ASH, [facility] Primary Care Provider Kaushik Nguyễn [phone] REASON FOR VISIT screening,fam hx colon ca Problems Problem Type SNOMED Code ICD Code Onset Dates Problem Status W/U Status Risk Notes Problem Diverticular disease of colon (980930358) Diverticulosis of large intestine without perforation or abscess without bleeding (K57.30) Active confirmed Problem Chronic gastritis (5213120) Gastritis, chronic (K29.50) Active confirmed Problem Gastroesophageal reflux disease (858444340) Esophageal reflux disease (K21.9) Active confirmed Encounters Encounter Location Date Provider Diagnosis [facility] [place] [address] [place] [phone] 12/15/2023 Kaushik Lima Encounter for scre ening [...] OMAR THOMAS MDOB: 7 (80 yo F)Acc No.[id number]:12/15/2023 EGD and COL/MAC Patient: OMAR HAND Provider: Maycol Lima MD :1945 A ge:78 Y S ex:Female Date:12/15/2023 Address:[address] [place] [address] Pcp:Bola Carroll MD Subjective: * Chief Complaints: [...] FLW-UP 10 YRS DOCD, Modifiers: 1P , 64959 UPPR GI ENDOSCOPY, DIAGNOSIS * * The named appointment provid er may or may not be the originator of this progress note, and it is not deemed complete until electronically signed by the appointment provider. Sign off status: Pending * Provider: Maycol Lima MD Date: 0 12/15/2023 Generated for Savannai jon/Hannah/eTtwylasmitting on: 0 04/24/2025 03:04 PM EDT
--- OUTSIDE RECORDS SUMMARY | 2025-04-24 15:05 | XMS_ITS | Patient Health Record ---
[facility]in Hernán[facility] Address [address] [place] [address] Care Team Providers Care Hull And Deck Remover Name Role Phone Glen CASH, Asma Primary Care Provider Molina Arcos Unavailable [phone] Allergies Allergen (clinical drug ingredient) Drug/Non Drug [...] D3 Active Alaway Active Systane prn Active Electrical Engineering Technologist Syringe every 3 weeks Active Metamucil Active [...] Status Risk Notes Problem Plantar fascial fibromatosis (42800429) Plantar fascial fibromatosis (M72.2) Active confirmed Plan Of Treatment Pending Test Test Name Order Date X ray : Foot, left 3V 11/12/2021 [id number] TENDON SHEATH/LIGAMENT 0 01/27/2022 [id number] TENDON SHEATH/LIGAMENT 0 03/10/2022 Insurance Providers Payer Name Payer Address Payer Phone Subscriber Number Group Number Insured Name Patient Relationship to Insured Coverage Start Date Coverage End Date Medicare National Govt Sv[employer] [address] [facility] [place] [address] [id number] Merlyn Morris Self - patient is the insured [employer] [address] [place] [address] [id number] Merlyn Morris Self - patient is [...]
== END 2025-04-24 14:02 | disposition home or self-care (01) ==
LOC: HO.HMGAL 13:48
PROVIDERS: PCP Internal Medicine; Visit Provider Registered Nurse Emergency
DX: J30.89 Other allergic rhinitis (principal)
CPT/HCPCS: 95117; 95165

== ENCOUNTER 2025-05-22 11:16 | Outpatient (AMB) | payer MEDICARE, OTHER, SELFPAY ==
--- OUTSIDE RECORDS SUMMARY | 2023-12-15 05:50 | XMS_ITS ---
Author Organization [facility] Address [address] [place] [phone] Care Team Providers Care Port Crane Operator Name Role Phone Glen CASH, [facility] Primary Care Provider Kaushik Nguyễn [phone] REASON FOR VISIT screening,fam hx colon ca Problems Problem Type SNOMED Code ICD Code Onset Dates Problem Status W/U Status Risk Notes Problem Diverticular disease of colon (469302868) Diverticulosis of large intestine without perforation or abscess without bleeding (K57.30) Active confirmed Problem Chronic gastritis (1903227) Gastritis, chronic (K29.50) Active confirmed Problem Gastroesophageal reflux disease (663643944) Esophageal reflux disease (K21.9) Active confirmed Encounters Encounter Location Date Provider Diagnosis [facility] [place] [address] [place] [phone] 12/15/2023 Kaushik Lima Encounter for scre ening [...] OMAR THOMAS MDOB: 7 (80 yo F)Acc No.[id number]:12/15/2023 EGD and COL/MAC Patient: OMAR HAND Provider: Maycol Lima MD :1945 A ge:78 Y S ex:Female Date:12/15/2023 Address:[address] [place] [address] Pcp:Bola Carroll MD Subjective: * Chief Complaints: [...] FLW-UP 10 YRS DOCD, Modifiers: 1P , 77654 UPPR GI ENDOSCOPY, DIAGNOSIS * * The named appointment provid er may or may not be the originator of this progress note, and it is not deemed complete until electronically signed by the appointment provider. Sign off status: Pending * Provider: Maycol Lima MD Date: 0 12/15/2023 Generated for Savannai jon/Hannah/eTtwylasmitting on: 0 05/22/2025 03:21 PM EDT
--- NOTE | 2025-05-22 12:14 | MHC.OFFVIS ---
Intake Visit Reasons: [facility] Allergies amoxicillin Allergy (Severe, Verified 03/07/25 13:08) nausea headache dizzy weak bed ridden for 2 days albuterol Allergy (Unknown, Verified 03/07/25 13:08) Shortness of Breath OLIMPIA Inhibitors Adverse Reaction (Verified 03/07/25 13:08) Cough mepivocaine Allergy (Severe, Uncoded 11/15/24 13:15) dizziness, weak, nausea HPI Comments Details: The patient is a 80-year-old female presenting with hyposmia and dysgeusia. Approximately six months ago, the patient experienced a loss of sense of smell accompanied by a metallic and generally unpleasant taste in her mouth. The taste disturbance initially presented as metallic but later evolved to an indistinct unpleasant taste. The patient was evaluated by an plastic technician, who noted chronic rhinosinusitis as a potential cause of the symptoms. She has been treated with courses of prednisone, antibiotics, and an antifungal, fluconazole, but reports no significant improvement in smell and taste. The patient is unsure if she will continue with an ENT consultation as her previous ENT specialist retired. A recent sinus CT scan in February revealed persistent sinusitis, which has been a recurring issue. The patient denies any changes in speech other than a noted nasal quality that has been present for some time. She has noted some instances where she was able to faintly detect scents such as popcorn, cinnamon, and a neighbor's cologne, which might suggest some olfactory recovery. The symptoms have not been associated with any neurological deficits, but the patient was referred to assess for any underlying neurological conditions, such as Alzheimer's disease or Parkinson's disease, though these concerns were alleviated during the visit. The patient reports normal coordination upon examination and a lack of familial neurological disorders. She has a history of taking hydroxychloroquine for cutaneous lupus and spironolactone, which she discontinued with no effect on her current symptoms. The patient mentioned ongoing allergy injections and intolerance to fluconazole, which might relate to her altered taste. I also noted that she had a CAT scan done in 2019 which revealed pansinusitis. [facility] Medical History A-fib SOB (shortness of breath) History of cardioversion (~2021) Constipation Seasonal allergies Hiatal hernia Sclerosis of the skin Discoid lupus Eczema Obstructive sleep apnea on CPAP Asthma, mild Hiatal hernia Atrial septal defect Sjogrens syndrome YODIT positive Allergic rhinitis Environmental allergies Hypertension, essential Surgical History History of colonoscopy Family History Father CAD (coronary artery disease) Substance use disorder Mother Colon cancer Diabetes mellitus CAD (coronary artery disease) Kidney problem Breast cancer BRCA negative HTN (hypertension) Stroke PONV (postoperative nausea and vomiting) Sister HTN (hypertension) Maternal Grandmother Unknown family medical history Maternal Grandfather No problems noted. Paternal Grandfather No problems noted. Paternal Grandmother No problems noted. Maternal Aunt Breast cancer Brother No problems noted. Sister No problems noted. Social History Household Members: Spouse Housing: House Are you a primary care professional to a significant other at home: No Do you presently have visiting nurse or other home services: No Alcohol intake: current Alcohol intake frequency: holidays/special occasions only Patient Tobacco Use Status: Never used Tobacco e-Cigarette/Vaping Use: Never Used Second Hand Smoke Exposure: Yes ( smokes) service: No Current occupational status: retired Cognitive needs: No Hearing needs: No Vision needs: No Physical Exam Neuro Other: Mental Status: Alert and oriented to person, place, and time. Normal attention. Normal spontaneous speech, fluency, and comprehension. No obvious issues with mood and memory. Affect is appropriate. Cranial Nerves: CN II: Visual quinones full to confrontation, visual acuity intact. CN III, IV, : Pupils equal, round, reactive to light and accommodation. Extraocular movements are normal. CN V: Facial sensation is normal. CN VII: Facial movements symmetrical. CN VIII: Hearing intact to bedside conversation is normal. CN IX, X: Palate elevates symmetrically. CN XI: Shoulder shrug and head turn symmetrical. CN XII: Tongue midline without atrophy or fasciculations. Motor: DTRs are 1+ with flexor plantars. Extrapyramidal: Full facial expressions and blinking. No rigidity. Movements are appropriate with no tremor or abnormality. Speech: Normal; no dysarthria or tremor. Assessment & Plan Assessment & Plan (1) Taste disorder: Code(s): R43.9 - Unspecified disturbances of smell and taste Category: Medical Plan I discussed with the patient that her symptoms of hyposmia and dysgeusia likely pertain to her chronic rhinosinusitis, compounded by medication side effects. An MRI is planned to exclude any other neurological issues, such as frontal lobe meningioma, which are unlikely given her current presentation. I reassured the patient that her neurological assessment was unremarkable for these conditions. We reviewed her medications, noting that fluconazole could contribute to her altered taste, with discontinuation deferred until further ENT consultation. I stressed the importance of allergy management and advised that continued ENT follow-up is necessary for her sinus issues. I emphasized that recovery of smell and taste may take time and without guarantees. Future consultations should focus on managing her rhinosinusitis and monitoring any neurologic symptoms that could develop. Orders: Orders MR head/brain wo/w con Today R43.9 - Unspecified disturbances of smell and taste Coding Level of Care Code New Pt Level 5 (47851) Diagnoses Taste disorder R43.9
--- OUTSIDE RECORDS SUMMARY | 2025-05-22 15:22 | XMS_ITS | Patient Health Record ---
[facility] Melissacristin Hernández Address [address] [place] [address] Care Team Providers Care Sausage Stringer Name Role Phone Glen CASH, Asma Primary Care Provider Molina Arcos Unavailable [phone] Allergies Allergen (clinical drug ingredient) Drug/Non Drug [...] D3 Active Alaway Active Systane prn Active Contract Negotiator Syringe every 3 weeks Active Metamucil Active [...] Status Risk Notes Problem Plantar fascial fibromatosis (62219179) Plantar fascial fibromatosis (M72.2) Active confirmed Plan Of Treatment Pending Test Test Name Order Date X ray : Foot, left 3V 11/12/2021 [id number] TENDON SHEATH/LIGAMENT 0 01/27/2022 [id number] TENDON SHEATH/LIGAMENT 0 03/10/2022 Insurance Providers Payer Name Payer Address Payer Phone Subscriber Number Group Number Insured Name Patient Relationship to Insured Coverage Start Date Coverage End Date Medicare National Govt Sv[employer] Inc [address] [facility] [place] [address] [id number] Merlyn Morris Self - patient is the insured [employer] ? [employer] [address] [place] [address] [id number] Merlyn Morris Self - patient is [...]
--- OUTSIDE RECORDS SUMMARY | 2025-05-22 15:22 | XMS_ITS | Patient Health Record ---
Author Organization [facility] Address [address] [place] [address] Care Team Providers Care Coding Auditor Name Role Phone Glen CASH, Asma Primary Care Provider Kaushik Nguyễn Unavailable [phone] Allergies Allergen (clinical drug ingredient) Drug/Non Drug [...] Problem Status W/U Status Risk Notes Problem 172040211 Colon cancer screening (Z12.11) Active confirmed Problem 532835200 Change in bowel habit (R19.4) Active confirmed Problem Diverticular disease of colon (853650122) Diverticulosis of large intestine without perforation or abscess without bleeding (K57.30) Active confirmed Problem 11930447 Cough (R05) Active confirmed Problem Chronic gastritis (4126287) Gastritis, chronic (K29.50) Active confirmed Problem 925431267 Current use of long term care administrator anticoagulation (Z79.01) Active confirmed Problem 86830395 Irritable bowel syndrome, unspecified type (K58.9) Active confirmed Problem Gastroesophageal reflux disease (607996553) Esophageal reflux disease (K21.9) Active confirmed Problem 461837488 Family hx of col on cancer (Z80.0) Active confirmed Plan Of Treatment Future Test Test Name Order Date COLONOSCOPY 04/18/2013 COLONOSCOPY 07/13/2023 Insurance Providers Payer Name Payer Address Payer Phone Subscriber Number Group Number Insured Name Patient Relationship to Insured Coverage Start Date Coverage End Date MED[place]ARE [place] [address] [place] [address] [id number] MARTHAMARYAOMAR Self - patient is the insured [facility] IN[facility]MN[facility] [address] [place] [address] [id number] OMAR THOMAS Self - patient is the insured Medical (General) History Medical History History ICD Code Hypertension Mild asthma on PFT's--sees Dr. Agrawal Denies [place],DM,CVA,renal disease Negative colonoscopies in , 2002,2007, and 2013--neg. 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 Mendoza and Dr. Graciela fernandez Eczema Anxiety Allergy injections once a month Urinary incontinence Afib-sees Dr. Nigel Zamora--2 cardioversions - Sleep apnea-uses CPAP Surgical History Surgery Date(Month/Year) Breast biopsy--benign Deviated septum
== END 2025-05-22 12:26 | disposition home or self-care (01) ==
LOC: HO.HSM 11:17
PROVIDERS: PCP Internal Medicine; Visit Provider Psychiatry & Neurology Neurology
DX: R43.9 Unspecified disturbances of smell and taste (principal)
CPT/HCPCS: 99204

== ENCOUNTER → 2025-05-22 11:16 | Outpatient (BNVA) | payer MEDICARE, OTHER, SELFPAY | PROVIDERS: PCP Internal Medicine; Visit Provider Psychiatry & Neurology Neurology | DX: R43.9 Unspecified disturbances of smell and taste (principal) | CPT/HCPCS: 99202 ==

== ENCOUNTER 2025-05-23 12:10 | Outpatient (AMB) | payer MEDICARE, OTHER, SELFPAY ==
--- OUTSIDE RECORDS SUMMARY | 2023-12-15 05:50 | XMS_ITS ---
Author Organization [facility] Address [address] [place] [phone] Care Team Providers Care Buckle Frame Shaper Name Role Phone Glen CASH, [facility] Primary Care Provider Kaushik Nguyễn [phone] REASON FOR VISIT screening,fam hx colon ca Problems Problem Type SNOMED Code ICD Code Onset Dates Problem Status W/U Status Risk Notes Problem Diverticular disease of colon (966871168) Diverticulosis of large intestine without perforation or abscess without bleeding (K57.30) Active confirmed Problem Chronic gastritis (4847710) Gastritis, chronic (K29.50) Active confirmed Problem Gastroesophageal reflux disease (443497476) Esophageal reflux disease (K21.9) Active confirmed Encounters Encounter Location Date Provider Diagnosis [facility] [place] [address] [place] [phone] 12/15/2023 Kaushik Lima Encounter for scre ening [...] OMAR THOMAS MDOB: 7 (80 yo F)Acc No.[id number]:12/15/2023 EGD and COL/MAC Patient: OMAR HAND Provider: Maycol Lima MD :1945 A ge:78 Y S ex:Female Date:12/15/2023 Address:[address] [place] [address] Pcp:Bola Carroll MD Subjective: * Chief Complaints: [...] FLW-UP 10 YRS DOCD, Modifiers: 1P , 04837 UPPR GI ENDOSCOPY, DIAGNOSIS * * The named appointment provid er may or may not be the originator of this progress note, and it is not deemed complete until electronically signed by the appointment provider. Sign off status: Pending * Provider: Maycol Lima MD Date: 0 12/15/2023 Generated for Savannai jon/Hannah/eTtwylasmitting on: 0 05/23/2025 03:40 PM EDT
[2025-05-23 12:13] VITALS: BP 138/76; PULSE 86; O2SAT 97; BMI 24.7
--- NOTE | 2025-05-23 12:13 | MHC.PC.OV ---
Vital Signs 05/23/25 12:13 Height 5 ft 6 in Weight 153 lb BMI 24.7 BP 138/76 Blood Pressure Location Lt brachial Position Sitting Pulse 86 Pulse Source Pulse Oximeter Pulse Oximetry (%) 97 Intake Visit Reasons: 3 month f/u Electrical Journeyman Required: No Accompanied by: Self / Same As Patient Allergies amoxicillin Allergy (Severe, Verified 05/23/25 12:14) nausea headache dizzy weak bed ridden for 2 days albuterol Allergy (Unknown, Verified 05/23/25 12:14) Shortness of Breath OLIMPIA Inhibitors Adverse Reaction (Verified 05/23/25 12:14) Cough mepivocaine Allergy (Severe, Uncoded 05/22/25 12:44) dizziness, weak, nausea Medication List - Last Reconciled 05/23/25 by Bola Carroll MD acetaminophen (Tylenol Extra Strength) 500 mg PO Q6H PRN apixaban (Eliquis) 5 mg PO BID atorvastatin 10 mg PO DAILY cetirizine (Zyrtec) 10 mg PO DAILY PRN cholecalciferol (vitamin D3) (Vitamin D3) 25 mcg PO DAILY clobetasol 0.05% grams topical BID clotrimazole 10 mg mucous membrane TID coenzyme Q10 (Co Q-10) 200 mg PO DAILY dapagliflozin propanediol (Farxiga) 10 mg PO DAILY escitalopram oxalate 5 mg PO DAILY 90 days fluconazole 100 mg PO DAILY losartan 50 mg PO BID 90 days metoprolol succinate ER 25 mg PO DAILY 90 days omega-3 fatty acids (Fish Oil Concentrate) 1,000 mg PO DAILY psyllium husk (Metamucil) 0.4 grams PO DAILY Tobacco use date assessed: 12/05/24 Fall risk assessment: No Falls in past year Last assessed Fall Risk: 05/23/25 Dental Screening Dental Screen Date: 12/05/24 HPI 3 month f/u HPI Details History The patient is a 80-year-old female presenting with anosmia and dysgeusia. and longitudinal care visit Anosmia and Dysgeusia: - The patient reports an absence of smell and a poor taste sensation. - Symptoms have persisted despite previous interventions for sinusitis. - Dr. Mcdonald does not suspect a neurological cause; however, a brain scan has been ordered to rule out such conditions. - Chronic sinusitis has been postulated as a potential cause. - The possibility of Sjogren's syndrome contributing to these symptoms has been discussed, as dry mouth could be impacting taste. - Patient's symptoms have not resolved, and she hopes for their eventual return. - Additional consultation will involve an dynamite cartridge crimper when available. at [facility] [place] Medical History: - Discoid lupus - Sjogren's syndrome - Allergic rhinitis - Chronic allergic sinusitis - Hypertension - Paroxysmal atrial fibrillation - Hiatal hernia - Anxiety Medications: - Atorvastatin 10 mg for lipid control - Losartan 50 mg twice daily for hypertension - Metoprolol 25 mg once daily - Zyrtec (Cetirizine) for allergic rhinitis - Eliquis 5 mg orally as prescribed for atrial fibrillation - Hydroxychloroquine for lupus - Spironolactone as diuretic use - Farxiga for heart protection - Estelipram for anxiety - Vitamin D supplementation Social History: - The patient is - She is compliant with medical care by maintaining regular physician appointments. - She receives allergy shots in [place]. - Not currently inclined to receive a COVID-19 vaccination, equating it with the common flu, but willing to receive an annual senior flu shot. Problem List - Anosmia - Dysgeusia - Sjogren's syndrome - Discoid lupus - Paroxysmal atrial fibrillation - Chronic allergic sinusitis - Hypertension - Allergic rhinitis - Anxiety Leona of Care - Engaged with multiple specialists including dermatology, cardiology, rheumatology. - Follow-up with neurology planned post-MRI. - Awaiting contact from newly established ENT services. Patient Instructions - Elevate legs when sitting to reduce ankle swelling. - Continue all other medications as prescribed. - Plan to receive the senior flu shot, potentially at a local pharmacy. - Keep healthcare providers informed of any symptom or medication changes. - Monitor symptoms of allergy in eyes and treat with allergy drops or cold water splashes as necessary. f/u with your eye doctor - Enjoy planned trip to [facility] and avoid stress over medical conditions during this time. 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: Alert awake oriented x3 motor intact skin: Normal [facility] Medical History A-fib SOB (shortness of breath) History of cardioversion (~2021) Constipation Seasonal allergies Hiatal hernia Sclerosis of the skin Discoid lupus Eczema Obstructive sleep apnea on CPAP Asthma, mild Hiatal hernia Atrial septal defect Sjogrens syndrome YODIT positive Allergic rhinitis Environmental allergies Hypertension, essential Surgical History History of colonoscopy Family History Father CAD (coronary artery disease) Substance use disorder Mother Colon cancer Diabetes mellitus CAD (coronary artery disease) Kidney problem Breast cancer BRCA negative HTN (hypertension) Stroke PONV (postoperative nausea and vomiting) Sister HTN (hypertension) Maternal Grandmother Unknown family medical history Maternal Grandfather No problems noted. Paternal Grandfather No problems noted. Paternal Grandmother No problems noted. Maternal Aunt Breast cancer Brother No problems noted. Sister No problems noted. Social History Household Members: Spouse Housing: House Are you a primary client care representative to a significant other at home: No Do you presently have visiting nurse or other home services: No Alcohol intake: current Alcohol intake frequency: holidays/special occasions only Patient Tobacco Use Status: Never used Tobacco e-Cigarette/Vaping Use: Never Used Second Hand Smoke Exposure: Yes ( smokes) service: No Current occupational status: retired Cognitive needs: No Hearing needs: No Vision needs: No Questionnaire PHQ-9 Over the last 2 weeks, how often have you been bothered by any of the following problems? 1. Little interest or pleasure in doing things: several days 2. Feeling down, depressed, or hopeless: not at all 3. Trouble falling or staying asleep, or sleeping too much: several days 4. Feeling tired or having little energy: several days 5. Poor appetite or overeating: not at all 6. Feeling bad about yourself - or that you are a failure or have let yourself or your family down: not at all 7. Trouble concentrating on things, such as reading the newspaper or watching television: not at all 8. Moving or speaking so slowly that other people could have noticed. Or the opposite - being so fidgety or restless that you have been moving around a lot more than usual: not at all 9. Thoughts that you would be better off or of hurting yourself in some way: not at all Total score: 3 Depression Screening Interpretation: Negative Depression Screening Done: Yes 61965 - PHQ-9 Billing: Yes Source: Developed by Drs. Kaushik Simons, Lizzette Shirley, Arnav Pritchard and colleagues, with an educational romina from [employer]. Thrive Questionnaire Date Thrive assessed: 12/05/24 What is your living situation today?: I have a steady place to live Within the past 12 months, did the food you bought not last and you didn't have the money to get more?: Never true Within the past 12 months, did you worry whether your food would run out before you got money to buy more?: Never true Do you have trouble paying for medicines?: No Do you have trouble getting transportation to medical appointments?: No Do you have trouble paying your heating and electricity bill?: No Do you have trouble with day-to-day activities such as bathing, preparing meals, shopping, managing finances, etc.?: No Are you currently unemployed and looking for a job?: No Are you interested in more education?: No Please select the resources that you would like help with: None Currently or been in a relationship where the following occur: No concerns reported THRIVE Score: 0 AUDIT C Alcohol Use Questionnaire (AUDIT-C) 1. How often do you have a drink containing alcohol?: Never 3. How often do you have six or more drinks on one occasion?: Never Total Score: 0 Score Reviewed/Action Taken: Yes MELISA-7 AMB Questionnaire MELISA-7 Date MELISA - 7 assessed: 12/05/24 Feeling nervous, anxious, or on edge: 0 = Not at all Not being able to stop or control worryin = Not at all Worrying too much about different things: 0 = Not at all Trouble relaxin = Not at all Being so restless that it is hard to sit still: 0 = Not at all Becoming easily annoyed or irritable: 0 = Not at all Feeling afraid as if something awful might happen: 0 = Not at all Total MELISA-7 score (0-4 normal; 5-9 mild; 10-14 moderate; 15-21 severe): 0 Source: Developed by Drs. Kaushik Simons, Lizzette Shirley, Arnav Pritchard and colleagues, with an educational romina from [employer]. Physical exam (Primary Care) Vital Signs: Last Vital Signs Pulse 86 05/23/25 12:13 BP 138/76 05/23/25 12:13 Pulse Ox 97 05/23/25 12:13 BMI result Body Mass Index 24.7 Tobacco/Smoking Status: Tobacco use Status Tobacco use date assessed 12/05/24 05/23/25 12:15 Patient Tobacco Use Status Never used Tobacco 05/23/25 12:15 e-Cigarette/Vaping Use Never Used 05/23/25 12:15 PHQ-9: PHQ-9 Score PHQ-9: Total score 3 05/23/25 12:42 Depression Screening Interpretation: Negative Thrive Assessment: Date of Thrive Assessment Date Thrive assessed 12/05/24 05/23/25 12:15 Currently or been in a relationship where the following occur: No concerns reported Coding Level of Care Code Est Pt Level 4 (65418) Complex EM visit Add On G2211 Diagnoses Decreased sense of taste R43.2 Environmental allergies Z91.09 Allergic sinusitis J30.9 Paroxysmal atrial fibrillation I48.0 Discoid lupus erythematosus L93.0 Anxiety, generalized F41.1 Additional Codes PHQ-9 - 68808 - PHQ-9 Billing: Yes ([id number]) Assessment & Plan Assessment & Plan (1) Decreased sense of taste: Code(s): R43.2 - Parageusia Category: Medical (2) Environmental allergies: Code(s): Z91.09 - Other allergy status, other than to drugs and biological substances Category: Medical (3) Allergic sinusitis: Code(s): J30.9 - Allergic rhinitis, unspecified Category: Medical (4) Paroxysmal atrial fibrillation: Code(s): I48.0 - Paroxysmal atrial fibrillation Category: Medical (5) Discoid lupus erythematosus: Code(s): L93.0 - Discoid lupus erythematosus Category: Medical (6) Anxiety, generalized: Code(s): F41.1 - Generalized anxiety disorder Category: Medical Plan History The patient is a 80-year-old female presenting with anosmia and dysgeusia. and longitudinal care visit Anosmia and Dysgeusia: - The patient reports an absence of smell and a poor taste sensation. - Symptoms have persisted despite previous interventions for sinusitis. - Dr. Mcdonald does not suspect a neurological cause; however, a brain scan has been ordered to rule out such conditions. - Chronic sinusitis has been postulated as a potential cause. - The possibility of Sjogren's syndrome contributing to these symptoms has been discussed, as dry mouth could be impacting taste. - Patient's symptoms have not resolved, and she hopes for their eventual return. - Additional consultation will involve an dynamite cartridge crimper when available. at [facility] [place] Medical History: - Discoid lupus - Sjogren's syndrome - Allergic rhinitis - Chronic allergic sinusitis - Hypertension - Paroxysmal atrial fibrillation - Hiatal hernia - Anxiety Medications: - Atorvastatin 10 mg for lipid control - Losartan 50 mg twice daily for hypertension - Metoprolol 25 mg once daily - Zyrtec (Cetirizine) for allergic rhinitis - Eliquis 5 mg orally as prescribed for atrial fibrillation - Hydroxychloroquine for lupus - Spironolactone as diuretic use - Farxiga for heart protection - Estelipram for anxiety - Vitamin D supplementation Social History: - The patient is - She is compliant with medical care by maintaining regular physician appointments. - She receives allergy shots in [place]. - Not currently inclined to receive a COVID-19 vaccination, equating it with the common flu, but willing to receive an annual senior flu shot. Problem List - Anosmia - Dysgeusia - Sjogren's syndrome - Discoid lupus - Paroxysmal atrial fibrillation - Chronic allergic sinusitis - Hypertension - Allergic rhinitis - Anxiety Leona of Care - Engaged with multiple specialists including dermatology, cardiology, rheumatology. - Follow-up with neurology planned post-MRI. - Awaiting contact from newly established ENT services. Patient Instructions - Elevate legs when sitting to reduce ankle swelling. - Continue all other medications as prescribed. - Plan to receive the senior flu shot, potentially at a local pharmacy. - Keep healthcare providers informed of any symptom or medication changes. - Monitor symptoms of allergy in eyes and treat with allergy drops or cold water splashes as necessary. f/u with your eye doctor - Enjoy planned trip to [facility] and avoid stress over medical conditions during this time. f/u 4 M
--- OUTSIDE RECORDS SUMMARY | 2025-05-23 15:40 | XMS_ITS | Patient Health Record ---
Author Organization [facility] Address [address] [place] [address] Care Team Providers Care Rat Farmer Name Role Phone Glen CASH, Asma Primary Care Provider Kaushik Nguyễn Unavailable [phone] Allergies Allergen (clinical drug ingredient) Drug/Non Drug [...] Problem Status W/U Status Risk Notes Problem 397760010 Colon cancer screening (Z12.11) Active confirmed Problem 188796135 Change in bowel habit (R19.4) Active confirmed Problem Diverticular disease of colon (760980817) Diverticulosis of large intestine without perforation or abscess without bleeding (K57.30) Active confirmed Problem 05644355 Cough (R05) Active confirmed Problem Chronic gastritis (0370584) Gastritis, chronic (K29.50) Active confirmed Problem 719534110 Current use of oil heaterman anticoagulation (Z79.01) Active confirmed Problem 35736247 Irritable bowel syndrome, unspecified type (K58.9) Active confirmed Problem Gastroesophageal reflux disease (120531460) Esophageal reflux disease (K21.9) Active confirmed Problem 287709582 Family hx of col on cancer (Z80.0) Active confirmed Plan Of Treatment Future Test Test Name Order Date COLONOSCOPY 04/18/2013 COLONOSCOPY 07/13/2023 Insurance Providers Payer Name Payer Address Payer Phone Subscriber Number Group Number Insured Name Patient Relationship to Insured Coverage Start Date Coverage End Date MED[place]ARE [place] [address] [place] [address] [id number] MARTHAMARYAOMAR Self - patient is the insured [facility] INDEMNITY [address] [place] [address] [id number] OMAR THOMAS Self - patient is the insured Medical (General) History Medical History History ICD Code Hypertension Mild asthma on PFT's--sees Dr. Agrawal Denies [place],DM,CVA,renal disease Negative colonoscopies in , 2002,2007, and 2013--neg. 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 Mendoza and Dr. Graciela fernandez Eczema Anxiety Allergy injections once a month Urinary incontinence Afib-sees Dr. Nigel Zamora--2 cardioversions - Sleep apnea-uses CPAP Surgical History Surgery Date(Month/Year) Breast biopsy--benign Deviated septum
--- OUTSIDE RECORDS SUMMARY | 2025-05-23 15:40 | XMS_ITS | Patient Health Record ---
Author Organization [facility]issacristin Hernández Address [address] [place] [address] Care Team Providers Care Director Of Creative Services Name Role Phone Glen CASH, Asma Primary Care Provider Molina Arcos Unavailable [phone] Allergies Allergen (clinical drug ingredient) Drug/Non Drug [...] D3 Active [place] Active Systane prn Active Child Protective Services Specialist Syringe every 3 weeks Active Metamucil [...] Status Risk Notes Problem Plantar fascial fibromatosis (07254813) Plantar fascial fibromatosis (M72.2) Active confirmed Plan Of Treatment Pending Test Test Name Order Date X ray : Foot, left 3V 11/12/2021 [id number] TENDON SHEATH/LIGAMENT 0 01/27/2022 [id number] TENDON SHEATH/LIGAMENT 0 03/10/2022 Insurance Providers Payer Name Payer Address Payer Phone Subscriber Number Group Number Insured Name Patient Relationship to Insured Coverage Start Date Coverage End Date Medicare National [employer] [address] [facility] [address] [id number] Merlyn Morris Self - patient is the insured [employer] [address] [place] [address] [phone] [id number] Merlyn Morris Self - patient is [...]
== END 2025-05-23 12:44 | disposition home or self-care (01) ==
LOC: HO.HMCC 12:11
PROVIDERS: PCP Internal Medicine; Visit Provider Internal Medicine
DX: R43.2 Parageusia (principal); Z91.09 Other allergy status, other than to drugs and biological substances; J30.9 Allergic rhinitis, unspecified; I48.0 Paroxysmal atrial fibrillation; L93.0 Discoid lupus erythematosus; F41.1 Generalized anxiety disorder

== ENCOUNTER → 2025-05-23 12:10 | Outpatient (BNVA) | payer MEDICARE, OTHER, SELFPAY | PROVIDERS: PCP Internal Medicine; Visit Provider Internal Medicine | DX: R43.2 Parageusia (principal); J30.9 Allergic rhinitis, unspecified; I48.0 Paroxysmal atrial fibrillation; L93.0 Discoid lupus erythematosus; F41.1 Generalized anxiety disorder; Z91.09 Other allergy status, other than to drugs and biological substances | CPT/HCPCS: 96127; 99212 ==

== ENCOUNTER 2025-05-28 13:18 | Outpatient (AMB) | payer MEDICARE, OTHER, SELFPAY | END 2025-05-28 13:22 | disposition home or self-care (01) | LOC: HO.HMGAL 13:18 | PROVIDERS: PCP Internal Medicine; Visit Provider Registered Nurse Emergency | DX: J30.89 Other allergic rhinitis (principal) | CPT/HCPCS: 95117; 95165 ==

== ENCOUNTER 2025-06-05 09:02 | Outpatient (REF) | payer MEDICARE, OTHER, SELFPAY ==
--- OUTSIDE RECORDS SUMMARY | 2023-12-15 05:50 | XMS_ITS ---
Author Organization [facility] Address [address] [place] [id number] Care Team Providers Care Therapeutic Recreation Specialist Name Role Phone Glen CASH, [facility] Primary Care Provider Kaushik Nguyễn [phone] REASON FOR VISIT screening,fam hx colon ca Problems Problem Type SNOMED Code ICD Code Onset Dates Problem Status W/U Status Risk Notes Problem Diverticular disease of colon (879730719) Diverticulosis of large intestine without perforation or abscess without bleeding (K57.30) Active confirmed Problem Chronic gastritis (4613293) Gastritis, chronic (K29.50) Active confirmed Problem Gastroesophageal reflux disease (365490544) Esophageal reflux disease (K21.9) Active confirmed Encounters Encounter Location Date Provider Diagnosis [facility] [place] [address] [place] [phone] 12/15/2023 Kaushik Lima Encounter for scre ening [...] OMAR THOMAS MDOB: 7 (80 yo F)Acc No.[id number]:12/15/2023 EGD and COL/MAC Patient: OMAR HAND Provider: Maycol Lima MD :1945 A ge:78 Y S ex:Female Date:12/15/2023 Address:[address] [place] [address] Pcp:Bola Carroll MD Subjective: * Chief Complaints: [...] FLW-UP 10 YRS DOCD, Modifiers: 1P , 37649 UPPR GI ENDOSCOPY, DIAGNOSIS * * The named appointment provid er may or may not be the originator of this progress note, and it is not deemed complete until electronically signed by the appointment provider. Sign off status: Pending * Provider: Maycol Lima MD Date: 0 12/15/2023 Generated for Savannai jon/Hannah/Jojosmitting on: 0 06/05/2025 09:42 AM EDT
--- OUTSIDE RECORDS SUMMARY | 2025-06-04 10:30 | XMS_ITS ---
Author Organization [facility] Address [address] [place] [address] Care Team Providers Care Pbx Mechanic Name Role Phone Glen CASH, [facility] Primary Care Provider Molina Arcos Unavailable [phone] Khloe Izaguirre Unavailable [phone] Allergies Allergen (clinical drug ingredient) Drug/Non Drug Allergy documented on EMR Reaction Allergy Type Onset Date Status albuterol Albuterol Unknown Drug Allergy Active amoxicillin Amoxicillin Unknown Drug Allergy Act maria luisa REASON FOR VISIT Foot pain Medications Medication SIG (Take, Route, Frequency, Duration) Notes Start Date End Date Status Development Administrator Syringe every 3 weeks Active Alaway Active Clobetasol 17 Propionate Active Farxiga Active Atorvastatin Calcium 10 MG 1 tablet Orally Once a day; Duration: 30 day(s) Active amLODIPine Besylate 2.5 MG 1 tablet Orally Once a day Active Physical Therapy . . . 2-3x/week; Duration: 3-4 weeks 12/19/2021 Active Triamcinolone & Emollient Not-Taking Flecainide Acetate 50 MG as directed Orally Not-Takin g Night Splint AFO - L1930 as directed 11/24/2021 Active ZyrTEC Allergy Activ e Tylenol Arthritis Pain Active Vitamin D3 Active Tacrolimus Active Metamucil Active Systane prn Active Fluocinolone Cream & Emollient Active Fish Oil Active Metoprolol Succinate 25 MG 1 capsule Orally Once a day Active Losartan Potassium 50 MG 2 tablet Orally Once a day; Duration: 30 days Active predniSONE 5 MG 4 tablets once a day for 3 days, 3 tablets once a day for 3 days, 2 tablets once a day for 3 days, 1 tablet once a day for 3 days Orally; Duration: 12 days 06/04/2025 Active Delsym prn Active CoQ-10 Active Eliquis 5 MG as directed Orally twice a day Active Escitalopram Oxalate Active Social History Tobacco Use: Social History Observation Description Date Details (start date - stop date) Never Smoker NA - NA Alcohol Screen Question Answer Notes Did you have a drink containing alcohol in the p ast year? No Points 0 Interpretation Negative Tobacco use other than smoking: Question Answer Notes Are you an other tobacco user? No Tobacco Control (Standard) Question Answer Notes Tobacco use: Nonsmoker Additional Findings: Tobacco non-user Current no nsmoker AUDIT-C (Standard) Question Answer Notes Did you have a drink containing alcohol in the p ast year? No Points 0 Interpretation Negative Vital Signs Blood pressure systolic 137 mm Hg 06/04/20 25 Blood pressure diastolic 81 mm Hg 025 Height 5ft 6in in 06/04/2025 Weight 150 lbs 06/04/2025 BMI 24.21 kg/m2 06/04/2025 Encounters Encounter Location Date Provider Diagnosis [facility] [address] [address] 06/04/2025 Khloe Izaguirre Right foot pain M79.671 ; Sprain of right foot, initial encounter S93.601A and Strain of right foot, initial encounter S96.911A Assessments Encounter Date Diagnosis (ICD Code) Assessment Notes Treatment Notes Treatment Clinical Notes Section Notes 06/04/2025 Right foot pain (ICD-10 - M79.671) 06/04/2025 Sprain of right foot, initial encounter (ICD-10 - S93.601A) (Rx management (4)) 06/04/2025 Strain of right foot, initial encounter (ICD-10 - S96.911A) (Rx management (4)) Plan Of Treatment Medication Medication Name Sig Start Date Stop Date Notes predniSONE 5 MG 4 tablets once a day for 3 days, 3 tablets once a day for 3 days, 2 tablets once a day for 3 days, 1 tablet once a day for 3 days Orally; Duration: 12 days 06/04/2025 Pending Test Test Name Order Date X ray : Foot, right 3V 06/04/2025 Next Appt Details Follow Up: 6 Weeks, Reason: Provider Name:Khloe acuña, 07/11/2025 10:15:00 AM, [address] [place], [address], Progress Notes * Julissa THOMASOB:1945 (80 yo F)Acc No.[id number]:06/04/2025 Progress Note Patient: Merlyn HAND Provider: Lisa Izaguirre DPM :1945 A ge:80 Y S ex:Female Date:06/04/2025 Address:[address] [place], [place] [id number] Pcp:Bola Carroll MD Subjective: * Chief Complaints: * F oot pain * HPI: F oot Pain: Nature: a domenico, bruising, swelling, tenderness, throbbing.? Location: [facility]. Duration: s everal days. Onset: s tates trauma ( twisted foot coming up cellar).? Aggravated: a ny pressure, standing, walking. Treatments: r est/alter normal daily activity, ice, medication ( naproxen ). * ROS: G eneral/Constitutional: Nausea d enies. V omiting d enies. H dre Thirst d enies. L oss appetite d enies. C hills d enies. F atigue d enies.?Fever d enies. N ight Sweats d enies. U nexplained weight loss d enies. U nexplained weight gain d enies. H EENTM: Dentures d enies. D izziness d enies. G lasses/contacts a dmits. R etinopathy d enies. B lurred/double vision d enies. T MJ?denies. D ischarge/drainage d enies. I mplants d enies. S ore throat d enies. D ental implants d enies. H tatianna of hearing d enies. D ifficulty chewing/swallowing/speaking d enies. N ose bleeds d enies. S ore mouth d enies. ? R espiratory: On Oxygen d enies. P neumonia/pleurisy d enies.?Bronchitis d enies. E mphysema d enies. C oughing d enies. C ough blood?denies. S hortness of breath a dmits. W heezing d enies. C ardiovascular: Pacemaker d enies. M NURSE LDR d enies. W PW d enies. C HF d enies. H eart attack d enies. S eptal defect d enies. R apid beat a dmits. C hest pain d enies. A trial Fib. a dmits. M urmur/Palpitations d enies. G astrointestinal: Hemorrhoids d enies. S tomach/Abdominal pain d enies. D ark blood stool d enies. I rritable bowel d enies. C onstipation d enies. D iarrhea d enies. H ematology: Swelling d enies. C lots d enies. V aricose Veins d enies. B ruising a dmits, on anticoagulants. B leeding problem a dmits, on anticoagulants. G enitourinary: Blood urine d enies. F requent/Painfu/urination/bladder control d enies. K idney stones d enies. I nfection (UTI) d enies. N ephropathy d enies. s ex trans dis (STD) d enies. P rostate d enies. M usculoskeletal: Hammertoes d enies. B unions d enies. B ack Pain a dmits. M uscle Cramps/ Resting a dmits. M uscle cramps / walking d enies.?Generalized aches and pains a dmits. W eakness d enies. I nteg.: Mendoza d enies. S cars d enies. C orns/calluses?denies. I ngrown nails d enies. P ainful nails d enies. O pen Sores d enies. R ashes d enies. N eurologic: Difficulty sleeping a dmits. B rain disorder d enies. N umbness d enies. B alance trouble d enies. C onfusion d enies. F ainting/blackouts d enies. T ingling d enies. T remors d enies. * Medical History: * Surgical History: b reast biopsy 80'ssub mucous resection 1970cardioversion 09/2021 * Hospitalization/Major Diagno stic Procedure: B [facility]-Afib 06/2018 * Family History: M other: , stroke, cancer, high blood pressure, diagnosed with Diabetic - NIDDM. F ather: , heart attack, high blood pressure, diagnosed with Diabetic - NIDDM. * Social History: T obacco Use: T obacco use other than smoking A re you an other tobacco user? N o Tobacco Control (Standard) T obacco use: N onsmoker A dditional Findings: Tobacco non-user C urrent nonsmoker D rugs/Alcohol: D rugs H ave you used drugs other than those for medical reasons in the past 12 months? N o Alcohol Screen D id you have a drink containing alcohol in the past year? N o P oints 0 I nterpretation N egative M iscellaneous: C affeine: yes, 1-2 cups per day. Exercise: walking about 20-25 minutes a day , stretches. Marital status: . 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 D rug/Alcohol: A ALEXY-C (Standard) D id you have a drink containing alcohol in the past year? N o P oints 0 I nterpretation N egative * Medications: T akingFarxiga Clobetasol 17 Propionate Alaway Development Administrator Syringe , Notes to Pharmacist: every 3 weeksAtorvastatin Calcium 10 MG Tablet 1 tablet Orally Once a day CoQ-10 Delsym , Notes to Pharmacist: prnEscitalopram Oxalate Eliquis 5 MG Tablet as directed Orally twice a day Fish Oil Fluocinolone Cream & Emollient Losartan Potassium 50 MG Tablet 2 tablet Orally Once a day Metoprolol Succinate 25 MG Capsule ER 24 Hour Sprinkle 1 capsule Orally Once a day Systane , Notes to Pharmacist: prnMetamucil Tacrolimus Tylenol Arthritis Pain ZyrTEC Allergy Vitamin D3 Night Splint AFO - L1930 as directed Physical Therapy . . . . 2-3x/week amLODIPine Besylate 2.5 MG Tablet 1 tablet Orally Once a day Taking Farxiga Taking Clobetasol 17 Propionate Taking Alaway Taking Development Administrator Syringe , Notes to Pharmacist: every 3 weeksTaking Atorvastatin Calcium 10 MG Tablet 1 tablet Orally Once a day Taking CoQ-10 Taking Delsym , Notes to Pharmacist: prnTaking Escitalopram Oxalate Taking Eliquis 5 MG Tablet as directed Orally twice a day Taking Fish Oil Taking Fluocinolone Cream & Emollient Taking Losartan Potassium 50 MG Tablet 2 tablet Orally Once a day Taking Metoprolol Succinate 25 MG Capsule ER 24 Hour Sprinkle 1 capsule Orally Once a day Taking Systane , Notes to Pharmacist: prnTaking Metamucil Taking Tacrolimus Taking Tylenol Arthritis Pain Taking ZyrTEC Allergy Taking Vitamin D3 Taking Night Splint AFO - L1930 as directed Taking Physical Therapy . . . . 2-3x/week Taking amLODIPine Besylate 2.5 MG Tablet 1 tablet Orally Once a day Not-Taking/PRNFlecainide Acetate 50 MG Tablet as directed Orally Triamcinolone & Emollient Medication List reviewed and reconciled with the patientNot-Taking/PRN Flecainide Acetate 50 MG Tablet as directed Orally Not-Taking/PRN Triamcinolone & Emollient Medication List reviewed and reconciled with the patient * Allergies: A moxicillinAlbuterolyes[Allergies Verified] Objective: * Vitals: H t: 5ft 6in, Wt: 150, BMI: 24.21, Shoe size: 9.5, BP: 137/81 mm Hg, Wt-k.04 kg. * Examination: O rthopedic: MUSCLE STRENGTH: 5 /5 all groups in a symmetrical fashion , B/L. GAIT ABNORMALITY: a ntalgic , antalgic. FOOT MORPHOLOGY: P ain on palpation, ATFL, sinus tarsi, No pain on palpation peroneal tendon course, 5th metatarsal base, fibula, negative piano st sign, no pain with midtarsal range of motion, P es Cavus structure, B/L. X -Rays - IMAGING REPORT: Clinical Indication(s): E valuate for Fracture. Views: 3 views of Foot, (AP< LAT, MO ), RIGHT, Taken by a trained Podiatric Towing Pilot ( DC ). Findings: i ncrease in soft tissue contour and density at the symptomatic site. Fracture: N egative fractures identified. ? G eneral Examination: GENERAL APPEARANCE: R beareals a pleasant, alert, well nourished, well developed, well hydrated individual, who demonstrates proper attention to hygene/body habitus, and is in no acute distress. ORIENTED: p erson, place, and time. N eurological: SENSORY: N eurological exam reveals intact sensorium, pain sensation normal, vibration sensation intact, pinprick sensation is normal in the lower extremities, Pt denies, anesthesia, burning, paresthesia, tingling, B/L, Neurological exam demonstrates pop pl left heel and lateral left 5th mt base. TINEL'S COMPRESSION: N egative tarsal tunnel, gama pedis, and medial calcaneal nerves. DEEP TENDON REFLEXES: A chilles, 2/4, B/L. V ascular: DP PULSES (B): 2/4, B/L. PT PULSES (B): 2/4, B/L. CAPILLARY FILL TIME: i mmediate, all digits, B/L. TROPHIC CONDITION-TEXTURE/ELASTICITY/TURGOR/HAIR GROWTH (B):?normal, B/L. TEMPERTURE GRADIENT (C): w arm to cool, proximal to distal, B/L. PIGMENTATION: n ormal, B/L. EDEMA (C): a bsent, B/L. D ermatologic: SKIN FINDINGS: S kin exam reveals normal texture, elasticity, and turgor. There are no masses. The interspaces are clear. Assessment: * Assessment: 1. R ight foot pain - M79.671 (Primary) 2 . S prain of right foot, initial encounter - S93.601A S pecify :Acute problem, Complicated w/ Multiple Tx Options(4), Dx New problem, Prognosis Uncertain (4) N otes :(Rx management (4)) 3 . S train of right foot, initial encounter - S96.911A S pecify :Acute problem, Complicated w/ Multiple Tx Options(4), Dx New problem, Prognosis Uncertain (4) N otes :(Rx management (4)) Plan: * Treatment: 2. S prain of right foot, initial encounter Start predniSONE Tablet, 5 MG, 4 tablets once a day for 3 days, 3 tablets once a day for 3 days, 2 tablets once a day for 3 days, 1 tablet once a day for 3 days, Orally, 12 days, 30 tablet. ? * Procedure Codes: 7 3630 X-RAY EXAM OF RIGHT FOOT 3V, Modifiers: 26 , RT * Preventive Medicine: Counseling: D iscussion: - 14: Office or other outpatient visit for the evaluation and management of an established patient, which required a medically appropriate history and/or examination and MODERATE level of DECISION MAKING for: 1 OR MORE CHRONIC PROBLEM(S) THATS WORSENING, 2 STABLE CHRONIC PROBLEMS, A NEWLY DIAGNOSED PROBLEM WITH UNCERTAIN PROGNOSIS, AN ACUTE COMPLICATED INJURY WITH MULTIPLE TREATMENT OPTIONS, OR AN ACUTE PROBLEM WITH ACCOMPANYING SYSTEMIC SYMPTOMS, THAT POSE(S) A MODERATE RISK OF MORBIDITY. THIS CONDITION MAY ALSO INCLUDE RX DRUG MANAGEMENT, OR A DECISON FOR MINOR SURGERY. The visit on the day of the [...] have encouraged the patient to call the office. O rthotics: I explained to the patient the benefits of OT use. I explained they are medically necessary to decrease the foot pain through proper mechanical control, support of their foot, AFO - I explained to the patient the benefits of AFO use. Recommend AFO Lower Extremity Bracing to accomodate the patients deformity and result in pain relief without surgery, Patient signed confirmation form indicating receipt of DME device. P .R.I.C.E.: T he patient was counseled on the use of P.R.I.C.E. and NSAIDS (if well tolerated) to aid in the recovery from their painful condition, Recommended Topical analgesics including Aspercream/Biofreeze/Voltaren gel as directed. T reatment: T he plan is to treat this patient with conservative and restorative nonsurgical treatment to help alleviate the patient's symptomatology by utilizing some or all of the standard podiatric medical care - e.g.- palliation, orthotics, injections, physical therapy and the use of padding and strapping.Short term goals: Our plan is to decrease pain and inflammation, to improve ambulation, to allow the patient to return to normal activities and work, and to prevent further disability.retirement goals: Our plan is for the patient to resume normal foot function, be weight bearing, and to prevent surgical intervention. We will reevaluate the patients progress as needed until symptoms complex subsides or is resolved. Screening/Special Tests: F all Risk Screening: C OMPLETE F ALLS: Screening for Future Fall Risk Have you had any falls with injury in the past year? C OMPLETE * Follow Up: 6 Weeks * Images: * Sign off status: Completed true * Provider: Lisa Izaguirre DPM Date: 06/04/2025 Generated for Bibiana webb/Hannah/Radha on: 06/05/2025 09:42 AM EDT History and Physical Notes * HPI (History of Present Illness) Category Sub-Category Detail Notes Category Not es Foot Pain Nature: aching, bruising , swelling, tenderness, throbbing Location: midfoot RIGHT Duration: several days Onset: states trauma ( twis adrienne foot coming up cellar) Aggravated: any pressure, standi ng, walking Treatments: rest/alter normal da halima activity, ice, medication ( naproxen ) Examination Category Sub-Category Detail Notes Category Not es Neurological SENSORY: Neurological exa m reveals intact [...] interspaces are clear Orthopedic GAIT ABNORMALITY: antalgic , antalgic FOOT MORPHOLOGY: Pain on palpation, A TFL, sinus tarsi, No pain on palpation peroneal tendon course, 5th metatarsal base, fibula, negative piano st sign, no pain with midtarsal range of motion, Pes Cavus structure, B/L MUSCLE STRENGTH: 5/5 [...] EDEMA (C): absent, B/L PIGMENTATION: normal, B/L X-Rays - IMAGING REPORT Findings: increase in soft tissue contour and density at the symptomatic site Fracture: Negative fractures i dentified Views: 3 views of Foot, (AP < LAT, MO ), RIGHT, Taken by a trained Podiatric Towing Pilot ( DC ) Clinical Indication(s): Evaluate for Fra cture
--- NOTE | ~2025-06-05 | MR_ITS ---
EXAMINATION: MR BRAIN WITHOUT AND WITH CONTRAST CLINICAL INFORMATION: R 43.9. Unspecified disturbances of smell and taste. Concerning frontal meningioma. COMPARISON: None available. TECHNIQUE: Multiplanar, multisequence MRI of the brain was obtained before and after the intravenous administration of 7.0 mL gadolinium based (Gadavist) without reported immediate complications. FINDINGS: No restricted diffusion. No acute intracranial hemorrhage, mass effect, midline shift, hydrocephalus or herniation. The cochlear or vestibular components of the 8th cranial nerves demonstrated no signal abnormality or masses. The labyrinthine, geniculate, tympanic and mastoid segments of the facial nerves demonstrated no signal abnormality or abnormal enhancement. No signal abnormality or enhancing lesion in the glossopharyngeal cranial nerves. No signal abnormality or abnormal enhancement in the Meckel's caves, cisternal segments and into zones of the trigeminal nerves. No signal abnormality or enhancing lesion in the third fourth sixth cranial nerves. No enhancing lesion within the brainstem. Bilateral multifocal patchy and confluent deep periventricular white matter hyperintense T2 FLAIR signal involving centrum semiovale and ferrari radiata and benny. Flow-void signal within the main vessels is normal. Anterior inferior cerebral arteries type III bilaterally. Sellar/suprasellar region is normal. Craniocervical junction demonstrates normal position of the cerebellar tonsils. Susceptibility signal in the left temporal occipital white matter. Nayak-white matter differentiation is normal. No enhancing lesion within the intraconal or extraconal compartments of the orbits. The extraocular muscles demonstrate normal enhancement pattern. The optic pathways demonstrated no signal abnormality or enhancing lesion. Mucosal thickening and secretions within the ethmoid air cells. Mucosal thickening in the maxillary sinuses and sphenoid sinus and frontal sinuses without gross air-fluid levels. Prominence of the extra-axial CSF spaces cerebral sulci and ventricles. Old lacunar infarcts, basal ganglia and ferrari radiata white matter. No enhancing lesion within the intra-axial or the extra-axial compartment of the cranium. Nonenhancing subcentimeter hypointense T2 nodular lesions in the soft tissue scalp. MR/MR head/brain wo/w con IMPRESSION: No enhancing mass. No acute stroke/nonhemorrhagic ischemia. Extensive white matter disease likely related to small vessel occlusive disease. 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 Acute on chronic paranasal sinus disease involving mostly ethmoid air cells.. Electronically signed by: Milton Flores MD 06/05/2025 11:33 AM EDT
--- OUTSIDE RECORDS SUMMARY | 2025-06-05 09:43 | XMS_ITS | Patient Health Record ---
[facility] Address [address] [place] [address] Care Team Providers Care Supervisor Bonding Name Role Phone Glen CASH, Asma Primary Care Provider Molina Arcos Unavailable [phone] Khloe Izaguirre Unavailable [phone] Allergies Allergen (clinical drug ingredient) Drug/Non Drug Allergy documented on EMR Reaction Allergy Type Onset Date Status albuterol Albuterol Unknown Drug Allergy Active amoxicillin Amoxicillin Unknown Drug Allergy Act maria luisa Reason For Referral No Information Medications Medication SIG (Take, Route, Frequency, Duration) Notes Start Date End Date Status Associate Professor Of Church Music Syringe every 3 weeks Active Alaway Active amLODIPine Besylate 2.5 MG 1 tablet Orally Once a day Active Physical Therapy . . . 2-3x/week; Duration: 3-4 weeks 12/19/2021 Active Clobetasol 17 Propionate Active Triamcinolone & Emollient Not-Taking predniSONE 5 MG 4 tablets once a day for 3 days, 3 tablets once a day for 3 days, 2 tablets once a day for 3 days, 1 tablet once a day for 3 days Orally; Duration: 12 days 06/04/2025 Active Farxiga Active Flecainide Acetate 50 MG as directed Orally Not-Takin g ZyrTEC Allergy Activ e Tylenol Arthritis Pain Active Night Splint AFO - L1930 as directed 11/24/2021 Active Vitamin D3 Active Tacrolimus Active Metamucil Active Systane prn Active Fluocinolone Cream & Emollient Active Fish Oil Active Metoprolol Succinate 25 MG 1 capsule Orally Once a day Active Losartan Potassium 50 MG 2 tablet Orally Once a day; Duration: 30 days Active Delsym prn Active CoQ-10 Active Eliquis 5 MG as directed Orally twice a day Active Escitalopram Oxalate Active Atorvastatin Calcium 10 MG 1 tablet Orally Once a day; Duration: 30 day(s) Active Immunizations Vaccine Route Administration Date Status [...] ast year? No Points 0 Interpretation Negative Problems Problem Type SNOMED Code ICD Code Onset Dates Problem Status W/U Status Risk Notes Problem Plantar fascial fibromatosis (94934821) Plantar fascial fibromatosis (M72.2) Active confirmed Vital Signs Blood pressure diastolic 81 mm Hg 06/04/2025 Height 5ft 6in in 06/04/2025 Blood pressure systolic 137 mm Hg 06/04/2025 Weight 150 lbs 06/04/2025 BMI 24.21 kg/m2 06/04/2025 Encounters Encounter Location Date Provider Diagnosis [facility] [address] 06/04/2025 Khloe Izaguirre Right foot pain M79.671 ; Sprain of right foot, initial encounter S93.601A and Strain of right foot, initial encounter S96.911A [facility] [address] 06/04/2025 Khloe Izaguirre [address] [address] 06/04/2025 Khloe Izaguirre Assessments Encounter Date Diagnosis (ICD Code) Assessment Notes Treatment Notes Treatment Clinical Notes Section Notes 06/04/2025 Right foot pain (ICD-10 - M79.671) 06/04/2025 Sprain of right foot, initial encounter (ICD-10 - S93.601A) (Rx management (4)) 06/04/2025 Strain of right foot, initial encounter (ICD-10 - S96.911A) (Rx management (4)) Plan Of Treatment Pending Test Test Name Order Date X ray : Foot, left 3V 11/12/2021 X ray : Foot, right 3V 06/04/2025 [id number] TENDON SHEATH/LIGAMENT 0 01/27/2022 [id number] TENDON SHEATH/LIGAMENT 0 03/10/2022 Next Appt Details Provider Name:Khloe acuña, 07/11/2025 10:15:00 AM, [address] [place], [address], Insurance Providers Payer Name Payer Address Payer Phone Subscriber Number Group Number Insured Name Patient Relationship to Insured Coverage Start Date Coverage End Date Medicare National Govt [employer] [address] [place] [address] [id number] Merlyn Morris Self - patient is the insured [employer] [address] [place] [address] [id number] Merlyn Morris Self - patient is [...]
--- OUTSIDE RECORDS SUMMARY | 2025-06-05 09:43 | XMS_ITS | Patient Health Record ---
Author Organization [facility] Address [address] [place] [address] Care Team Providers Care Toggler Name Role Phone Glen CASH, Asma Primary Care Provider Kaushik Nguyễn Unavailable [phone] Allergies Allergen (clinical drug ingredient) Drug/Non Drug [...] Problem Status W/U Status Risk Notes Problem 549548007 Colon cancer screening (Z12.11) Active confirmed Problem 535806200 Change in bowel habit (R19.4) Active confirmed Problem Diverticular disease of colon (763109251) Diverticulosis of large intestine without perforation or abscess without bleeding (K57.30) Active confirmed Problem 65309601 Cough (R05) Active confirmed Problem Chronic gastritis (8285508) Gastritis, chronic (K29.50) Active confirmed Problem 696565382 Current use of marine photographer anticoagulation (Z79.01) Active confirmed Problem 25164114 Irritable bowel syndrome, unspecified type (K58.9) Active confirmed Problem Gastroesophageal reflux disease (538359659) Esophageal reflux disease (K21.9) Active confirmed Problem 017334232 Family hx of col on cancer (Z80.0) Active confirmed Plan Of Treatment Future Test Test Name Order Date COLONOSCOPY 04/18/2013 COLONOSCOPY 07/13/2023 Insurance Providers Payer Name Payer Address Payer Phone Subscriber Number Group Number Insured Name Patient Relationship to Insured Coverage Start Date Coverage End Date MEDICARE OF [place] [address] [place] [address] [id number] MARTHAMARYAOMAR Self - patient is the insured [facility] INDEMNITY [address] [place] [address] [id number] OMAR THOMAS Self - patient is the insured Medical (General) History Medical History History ICD Code Hypertension Mild asthma on PFT's--sees Dr. Agrawal Denies [place],DM,CVA,renal disease Negative colonoscopies in , 2002,2007, and 2013--neg. 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 Mendoza and Dr. Graciela fernandez Eczema Anxiety Allergy injections once a month Urinary incontinence Afib-sees Dr. Nigel Zamora--2 cardioversions - Sleep apnea-uses CPAP Surgical History Surgery Date(Month/Year) Breast biopsy--benign Deviated septum
== END 2025-06-05 09:03 | disposition home or self-care (01) ==
LOC: HO.MRI 09:02
PROVIDERS: PCP Internal Medicine; Visit Provider Psychiatry & Neurology Neurology
DX: R43.9 Unspecified disturbances of smell and taste (principal)
CPT/HCPCS: 70553; A9585

== ENCOUNTER → 2025-06-05 09:16 | Outpatient (BNV) | payer MEDICARE, OTHER, SELFPAY | PROVIDERS: PCP Internal Medicine; Visit Provider Radiology Diagnostic Radiology | DX: R90.82 White matter disease, unspecified (principal); J34.89 Other specified disorders of nose and nasal sinuses | CPT/HCPCS: 70553 ==

== ENCOUNTER 2025-07-11 11:34 | Outpatient (AMB) | payer MEDICARE, OTHER, SELFPAY ==
--- OUTSIDE RECORDS SUMMARY | 2025-07-11 14:13 | XMS_ITS | Patient Health Record ---
[facility] Address [address] [place] [address] Care Team Providers Care Public Health Technologist Name Role Phone Glen CASH, Asma Primary Care Provider Khloe Nelson Unavailable [phone] Allergies Allergen (clinical drug ingredient) Drug/Non Drug Allergy documented on EMR Reaction Allergy Type Onset Date Status albuterol Albuterol Unknown Drug Allergy Active amoxicillin Amoxicillin Unknown Drug Allergy Act maria luisa Reason For Referral No Information Medications Medication SIG (Take, Route, Frequency, Duration) Notes Start Date End Date Status Tow Motor Driver Syringe every 3 weeks Active Alaway Active [...] Status Risk Notes Problem Plantar fascial fibromatosis (22984655) Plantar fascial fibromatosis (M72.2) Active confirmed Vital Signs Blood pressure diastolic 81 mm Hg 06/04/2025 Height 5ft 6in in 06/04/2025 Blood pressure systolic 137 mm Hg 06/04/2025 Weight 150 lbs 06/04/2025 BMI 24.21 kg/m2 06/04/2025 Encounters Encounter Location Date Provider Diagnosis [address] [address] 06/04/2025 Khloe Izaguirre Right foot pain M79.671 ; Sprain of right foot, initial encounter S93.601A and Strain of right foot, initial encounter S96.911A [address] [address] 06/04/2025 Khloe Izaguirre [address] [address] 06/04/2025 Khloe Izagu[address]re [address] [address] 07/06/2025 Khloe Izaguirre Assessments Encounter Date Diagnosis (ICD [...] X ray : Foot, right 3V 06/04/2025 [id number] TENDON SHEATH/LIGAMENT 0 01/27/2022 [id number] TENDON SHEATH/LIGAMENT 0 03/10/2022 Insurance Providers Payer Name Payer Address Payer Phone Subscriber Number Group Number Insured Name Patient Relationship to Insured Coverage Start Date Coverage End Date Medicare National Govt [employer] [address] [place] [address] [id number] Merlyn Morris Self - patient is the insured [employer] [address] [place] [address] [id number] Merlyn Morris Self - patient is [...]
--- OUTSIDE RECORDS SUMMARY | 2025-07-11 14:14 | XMS_ITS | Patient Health Record ---
Author Organization [facility] Address [address] [place] [address] Care Team Providers Care Resume Writer Name Role Phone Glen CASH, [facility] Primary Care Provider Kaushik Nguyễn Unavailable [phone] Allergies Allergen (clinical drug ingredient) Drug/Non Drug [...] TABLET BY PREM TH TWICE A DAY Oral; Duration: 90 Active Atorvastatin Calcium 10 MG Oral; Duration: 90 Active Metoprolol Succinate ER 25 MG Oral; Duration: 90 Active amLODIPine Besylate 2.5 MG Oral; Duration: 90 Active Vitamin D3 Active Fluocinolone Acetonide 0.025 % External; Duration: 30 Activ e Metamucil 0.36 GM as directed Orally Active Escitalopram Oxalate 5 MG Oral; Duration: 85 Active Tacrolimus 0.1 % APPLY TO GENITAL SKI N TWICE A DAY AND FACIAL RASH TWICE A DAY External; Duration: 30 Active Immunizations Vaccine Route Administration Date Status Comme nts Flu vaccine no Preserv 3 and > Unknown 07/15/2016 Admin istered Problems Problem Type SNOMED Code ICD Code Onset Dates Problem Status W/U Status Risk Notes Problem Colon cancer screening (062002454) Colon cancer screening (Z12.11) Active confirmed Problem Change in bowel habit (61921522) Change in bowel habit (R19.4) Active confirmed Problem Diverticular disease of colon (809368568) Diverticulosis of large intestine without perforation or abscess without bleeding (K57.30) Active confirmed Problem Cough (45523525) Cough (R05) Active confirmed Problem Chronic gastritis (2494775) Gastritis, chronic (K29.50) Active confirmed Problem Long-term current use of anticoagulant (071186462) Current use of mcfp anticoagulation (Z79.01) Active confirmed Problem Irritable bowel syndrome (20515511) Irritable bowel syndrome, unspecified type (K58.9) Active confirmed Problem Gastroesophageal reflux disease (326664412) Esophageal reflux disease (K21.9) Active confirmed Problem Family history of malignant neoplasm of gastrointestinal tract (301178527) Family hx of colon cancer (Z80.0) Active confirmed Plan Of Treatment Future Test Test Name Order Date COLONOSCOPY 04/18/2013 COLONOSCOPY 07/13/2023 Insurance Providers Payer Name Payer Address Payer Phone Subscriber Number Group Number Insured Name Patient Relationship to Insured Coverage Start Date Coverage End Date MEDICARE OF [place] [address] [place] [address] [id number] MARTHAOMAR Self - patient is the insured [facility] IN[facility] [address] [place] [address] [id number] OMAR THOMAS Self - patient is the [...]
== END 2025-07-11 11:35 | disposition home or self-care (01) ==
LOC: HO.HMGAL 11:34
PROVIDERS: PCP Internal Medicine; Visit Provider Registered Nurse Emergency
DX: J30.89 Other allergic rhinitis (principal)
CPT/HCPCS: 95117; 95165

== ENCOUNTER 2025-07-17 13:21 | Outpatient (AMB) | payer MEDICARE, OTHER, SELFPAY ==
--- OUTSIDE RECORDS SUMMARY | 2025-07-11 05:15 | XMS_ITS ---
Author Organization [facility] Address [address] [place] [address] Care Team Providers Care Ramp Flight Attendant Name Role Phone Glen CASH, Bola Primary Care Provider Khloe Nelson Unavailable [phone] Encounters Encounter Location Date Provider Diagnosis [address] [address] 07/11/2025 Khloe Izaguirre Plan Of Treatment No Information Progress Notes * Vikas THOMASLeilaniOB:1945 (80 yo F)Acc No.[id number]:07/11/2025 Progress Notes Patient: Merlyn HAND Provider: Lisa Izaguirre DPM :1945 A ge:80 Y S ex:Female Date:07/11/2025 Address:[address] [place], [place] [id number] Pcp:Bola Carroll MD Subjective: * Chief Complaints: * * Medical History: Objective: * Vitals: Assessment: Plan: * Treatment: * Images: * The named appointment provid er may or may not be the originator of this progress note, and it is not deemed complete until electronically signed by the appointment provider. Sign off status: Pending * Provider: Lisa Izaguirre DPM Date: 09/10/2024 Generated for Bibiana webb/Hannah/eTransmitting on: 09/16/2024 03:00 PM EST
--- NOTE | 2025-07-17 13:39 | MHC.OFFVIS ---
Intake Visit Reasons: AFTER MRI Allergies amoxicillin Allergy (Severe, Verified 05/23/25 12:14) nausea headache dizzy weak bed ridden for 2 days albuterol Allergy (Unknown, Verified 05/23/25 12:14) Shortness of Breath OLIMPIA Inhibitors Adverse Reaction (Verified 05/23/25 12:14) Cough mepivocaine Allergy (Severe, Uncoded 05/22/25 12:44) dizziness, weak, nausea HPI Comments Details: 80-year-old female presenting with hyposmia and dysgeusia. She is presenting with concern regarding cognitive decline and loss of taste and smell. Initially, a CT scan in February indicated inflammation in multiple sinuses, supporting a diagnosis of sinusitis. By May, a subsequent MRI of the brain revealed chronic signs of sinusitis and cerebral atrophy with potential microscopic strokes. She reports long-standing issues with taste and smell, severely impacting her enjoyment of food and drink, which tie back to her chronic sinusitis. The cognitive issues, reported as progressive forgetfulness and spatial disorientation, raise concerns about underlying dementia. 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 Brain imaging highlighted signs consistent with age-related atrophy and potential microscopic strokes, aligning with her reported experiences of cognitive decline. [facility] Medical History A-fib SOB (shortness of breath) History of cardioversion (~2021) Constipation Seasonal allergies Hiatal hernia Sclerosis of the skin Discoid lupus Eczema Obstructive sleep apnea on CPAP Asthma, mild Hiatal hernia Atrial septal defect Sjogrens syndrome YODIT positive Allergic rhinitis Environmental allergies Hypertension, essential Surgical History History of colonoscopy Family History Father CAD (coronary artery disease) Substance use disorder Mother Colon cancer Diabetes mellitus CAD (coronary artery disease) Kidney problem Breast cancer BRCA negative HTN (hypertension) Stroke PONV (postoperative nausea and vomiting) Sister HTN (hypertension) Maternal Grandmother Unknown family medical history Maternal Grandfather No problems noted. Paternal Grandfather No problems noted. Paternal Grandmother No problems noted. Maternal Aunt Breast cancer Brother No problems noted. Sister No problems noted. Social History Household Members: Spouse Housing: House Are you a primary rn palliative care to a significant other at home: No Do you presently have visiting nurse or other home services: No Alcohol intake: current Alcohol intake frequency: holidays/special occasions only Patient Tobacco Use Status: Never used Tobacco e-Cigarette/Vaping Use: Never Used Second Hand Smoke Exposure: Yes ( smokes) service: No Current occupational status: retired Cognitive needs: No Hearing needs: No Vision needs: No Review of Systems Narrative - HEENT: Reports loss of sense of taste and smell; chronic sinusitis - Neurological: Reports cognitive decline, increased forgetfulness, and spatial disorientation - Musculoskeletal: Reports experiencing falls and balance issues - : Reports bladder control issues, particularly at night Physical Exam Neuro Other: Mental Status: Alert and oriented to person, place, and time. Normal attention. Normal spontaneous speech, fluency, and comprehension. Cranial Nerves: CN II: Visual quinones full to confrontation, visual acuity intact. CN III, IV, : Pupils equal, round, reactive to light and accommodation. Extraocular movements are normal. CN V: Facial sensation is normal. CN VII: Facial movements symmetrical. CN VIII: Hearing intact to bedside conversation is normal. CN IX, X: Palate elevates symmetrically. CN XI: Shoulder shrug and head turn symmetrical. CN XII: Tongue midline without atrophy or fasciculations. Extrapyramidal: Full facial expressions and blinking. No rigidity. Movements are appropriate with no tremor or abnormality. Speech: Nasal. Assessment & Plan Assessment & Plan (1) Taste disorder: Comment: [place] [facility] [place]: Signs of chronic sinusitis, mod cerebellar and cerebral atrophy, mod MVD CT [place]NS [place] [facility] [place]: Pansinusitis Code(s): R43.9 - Unspecified disturbances of smell and taste Category: Medical Plan Impression: 1. Loss of sense of taste and smell with CT sinuses in February revealing pansinusitis an MRI of brain in May revealing signs of chronic sinusitis. 2. Multifactorial mild dementia 3. Mild to moderate central and cortical brain atrophy 4. Moderately severe cerebral microvascular disease of brain 5. Fair possiblity of dementia or degenerative process affecting her sense of smell and taste on top of sinus issues Rec: a: Education about all these issues b: Chronic sinusitis care c: Avoid stress/alcohol d: Stay socially and physically active Coding Level of Care Code Tele New Pt Level 5 (42999) Diagnoses Taste disorder R43.9 Time Spent (min) 50
--- OUTSIDE RECORDS SUMMARY | 2025-07-17 15:01 | XMS_ITS | Patient Health Record ---
[facility] Address [address] [place] [address] Care Team Providers Care Clarification Operator Name Role Phone Glen CASH, Asma Primary Care Provider Khloe Nelson Unavailable [phone] Allergies Allergen (clinical drug ingredient) Drug/Non Drug Allergy documented on EMR Reaction Allergy Type Onset Date Status albuterol Albuterol Unknown Drug Allergy Active amoxicillin Amoxicillin Unknown Drug Allergy Act maria luisa Reason For Referral No Information Medications Medication SIG (Take, Route, Frequency, Duration) Notes Start Date End Date Status Terrazzo Polisher Syringe every 3 weeks Active Alaway Active [...] Status Risk Notes Problem Plantar fascial fibromatosis (79478394) Plantar fascial fibromatosis (M72.2) Active confirmed Vital Signs Blood pressure diastolic 81 mm Hg 06/04/2025 Height 5ft 6in in 06/04/2025 Blood pressure systolic 137 mm Hg 06/04/2025 Weight 150 lbs 06/04/2025 BMI 24.21 kg/m2 06/04/2025 Encounters Encounter Location Date Provider Diagnosis [address] [address] 06/04/2025 Khloe Izaguirre Right foot pain M79.671 ; Sprain of right foot, initial encounter S93.601A and Strain of right foot, initial encounter S96.911A [address] [address] 06/04/2025 Khloe Izaguirre [address] [address] 06/04/2025 Khloe Izaguirre [address] [address] 07/06/2025 Khleo Izaguirre Assessments Encounter Date Diagnosis (ICD Code) [...] X ray : Foot, right 3V 06/04/2025 [id number] TENDON SHEATH/LIGAMENT 0 01/27/2022 [id number] TENDON SHEATH/LIGAMENT 0 03/10/2022 Insurance Providers Payer Name Payer Address Payer Phone Subscriber Number Group Number Insured Name Patient Relationship to Insured Coverage Start Date Coverage End Date Medicare National Govt [employer] [address] [place] [address] [id number] Merlyn Morris Self - patient is the insured [employer] [address] [place] [address] [phone] [id number] Merlyn Morris Self - patient is [...]
--- OUTSIDE RECORDS SUMMARY | 2025-07-17 15:01 | XMS_ITS | Patient Health Record ---
Author Organization [facility] Address [address] [place] [address] Care Team Providers Care Sql Developer Dba Name Role Phone [facility], [facility] Primary [facility] Provider Kaushik Nguyễn Unavailable [phone] Allergies Allergen (clinical drug ingredient) Drug/Non Drug [...] Status Risk Notes Problem Colon cancer screening (067762476) Colon cancer screening (Z12.11) Active confirmed Problem Change in bowel habit (73578678) Change in bowel habit (R19.4) Active confirmed Problem Diverticular disease of colon (473632182) Diverticulosis of large intestine without perforation or abscess without bleeding (K57.30) Active confirmed Problem Cough (72657837) Cough (R05) Active confirmed Problem Chronic gastritis (1822590) Gastritis, chronic (K29.50) Active confirmed Problem Long-term current use of anticoagulant (447026052) Current use of long term care social worker anticoagulation (Z79.01) Active confirmed Problem Irritable bowel syndrome (53551116) Irritable bowel syndrome, unspecified type (K58.9) Active confirmed Problem Gastroesophageal reflux disease (072666934) Esophageal reflux disease (K21.9) Active confirmed Problem Family history of malignant neoplasm of gastrointestinal tract (473266129) Family hx of colon cancer (Z80.0) Active confirmed Plan Of Treatment Future Test Test Name Order Date COLONOSCOPY 04/18/2013 COLONOSCOPY 07/13/2023 Insurance Providers Payer Name Payer Address Payer Phone Subscriber Number Group Number Insured Name Patient Relationship to Insured Coverage Start Date Coverage End Date MEDICARE OF [place] [address] [place] [address] [id number] MARTHAOMAR Self - patient is the insured [facility] INDEMNITY [address] [place] [address] [phone] [id number] OMAR THOMAS Self - patient is the insured Medical (General) History Medical History History ICD Code Hypertension Mild asthma on PFT's--sees Dr. Agrawal Denies [place],DM,CVA,renal disease Negative colonoscopies in , 2002,2007, and 2013--neg. 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 Mendoza and Dr. Graciela fernandez Eczema Anxiety Allergy injections once a month Urinary incontinence Afib-sees Dr. Nigel Zamora--2 cardioversions - Sleep apnea-uses CPAP Surgical History Surgery Date(Month/Year) Breast biopsy--benign Deviated septum
== END 2025-07-17 16:47 | disposition home or self-care (01) ==
PROVIDERS: PCP Internal Medicine; Visit Provider Psychiatry & Neurology Neurology
DX: R43.9 Unspecified disturbances of smell and taste (principal)
CPT/HCPCS: 99215

== ENCOUNTER → 2025-07-17 13:21 | Outpatient (BNVA) | payer MEDICARE, OTHER, SELFPAY | PROVIDERS: PCP Internal Medicine; Visit Provider Psychiatry & Neurology Neurology | DX: R43.9 Unspecified disturbances of smell and taste (principal); Z77.22 Contact with and (suspected) exposure to environmental tobacco smoke (acute) (chronic); J32.8 Other chronic sinusitis | CPT/HCPCS: 99212 ==

== ENCOUNTER 2025-08-08 14:09 | Outpatient (AMB) | payer MEDICARE, OTHER, SELFPAY ==
--- OUTSIDE RECORDS SUMMARY | 2025-07-11 05:15 | XMS_ITS ---
Author Organization [facility] Address [address] [place] [address] Care Team Providers Care Rice Farmworker Name Role Phone Glen CASH, Bola Primary Care Provider Khloe Nelson Unavailable [phone] Encounters Encounter Location Date Provider Diagnosis [address] [address] 07/11/2025 Khloe Izaguirre Plan Of Treatment No Information Progress Notes * Vikas THOMASLeilaniOB:1945 (80 yo F)Acc No.[id number]:07/11/2025 Progress Notes Patient: Merlyn HAND Provider: Lisa Izaguirre DPM :1945 A ge:80 Y S ex:Female Date:07/11/2025 Address:[address] [place], [place] [phone] Pcp:Bola Carroll MD Subjective: * Chief Complaints: [...] Date: 09/10/2024 Generated for Bibiana webb/Hannah/eTransmitting on: 10/09/2024 04:59 PM EST
--- OUTSIDE RECORDS SUMMARY | 2025-08-08 17:01 | XMS_ITS | Patient Health Record ---
Author Organization [facility] Address [address] [place] [address] Care Team Providers Care Cream Hauler Name Role Phone Glen CASH, Asma Primary Care Provider Kaushik Nguyễn [phone] Allergies Allergen (clinical drug ingredient) Drug/Non Drug Allergy documented on EMR Reaction Allergy Type Onset Date Status amoxicillin Amoxicillin Unknown Drug Allergy Act maria luisa Mepivacaine HCl Unknown Drug Allergy A ctive Reason For Referral No Information Medications Medication SIG (Take, Route, Frequency, Duration) Notes Start Date End Date Status Fish Oil 1000 MG Capsule 1 capsule Orall y Once a day Active CoQ-10 100 MG Capsule Extended Release 2 capsule with a meal Orally Once a day Active Tylenol Extra Strength 500 MG Tablet 1 tablet as needed Orally every 6 hrs Active Eliquis 5 MG Tablet TAKE 1 TABLET BY PREM TH TWICE A DAY Oral; Duration: 90 Active Atorvastatin Calcium 10 MG Tablet Oral; Duration: 90 Active Metoprolol Succinate ER 25 MG Tablet Extended Release 24 Hour Oral; Duration: 90 Active amLODIPine Besylate 2.5 MG Tablet Oral; Duration: 90 Active Vitamin D3 Active Fluocinolone Acetonide 0.025 % Cream External; Duration: 30 Acti ve Metamucil 0.36 GM Capsule as directed Orally Active Escitalopram Oxalate 5 MG Tablet Oral; Duration: 85 Active Tacrolimus 0.1 % Ointment APPLY TO GENIT AL SKIN TWICE A DAY AND FACIAL RASH TWICE A DAY External; Duration: 30 Active Immunizations Vaccine Route Administration Date Status Comme nts Flu vaccine no Preserv 3 and > Unknown 07/15/2016 Admin istered Social History Social History Additional Details Category Social Info Options Details Miscellaneous: Marital status: Occupation: retired Section Notes: Nonsmoker; no sig. alcohol Nonsmoker; no sig. alcohol Nonsmoker; no sig. alcohol Problems Problem Type SNOMED Code ICD Code Onset Dates Problem Status W/U Status Risk Notes Problem Colon cancer screening (738397690) Colon cancer screening (Z12.11) Active confirmed Problem Change in bowel habit (56813733) Change in bowel habit (R19.4) Active confirmed Problem Diverticular disease of colon (619385399) Diverticulosis of large intestine without perforation or abscess without bleeding (K57.30) Active confirmed Problem Cough (46887691) Cough (R05) Active confirmed Problem Chronic gastritis (5178833) Gastritis, chronic (K29.50) Active confirmed Problem Long-term current use of anticoagulant (507443598) Current use of fpc anticoagulation (Z79.01) Active confirmed Problem Irritable bowel syndrome (39696478) Irritable bowel syndrome, unspecified type (K58.9) Active confirmed Problem Gastroesophageal reflux disease (616866566) Esophageal reflux disease (K21.9) Active confirmed Problem Family history of malignant neoplasm of gastrointestinal tract (215885973) Family hx of colon cancer (Z80.0) Active confirmed Plan Of Treatment Future Test Test Name Order Date COLONOSCOPY 04/18/2013 COLONOSCOPY 07/13/2023 Insurance Providers Payer Name Payer Address Payer Phone Subscriber Number Group Number Insured Name Patient Relationship to Insured Coverage Start Date Coverage End Date MED[place]ARE OF [place] [address] [place] [address] [id number] OMAR THOMAS Self - patient is the insured [facility] [address] [place] [address] [phone] [id number] OMAR THOMAS Self - patient is the insured Medical (General) History Medical History History ICD Code Hypertension Mild asthma on PFT's--sees Dr. Agrawal Denies [place],DM,CVA,renal disease Negative colonoscopies in , 2002,2007, and 2013--neg. 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 Mendoza and Dr. Graciela fernandez Eczema Anxiety Allergy injections once a month Urinary incontinence Afib-sees Dr. Nigel Zamora--2 cardioversions - Sleep apnea-uses CPAP Surgical History Surgery Date(Month/Year) Breast biopsy--benign Deviated septum
--- OUTSIDE RECORDS SUMMARY | 2025-08-08 17:01 | XMS_ITS | Patient Health Record ---
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 Name Role Phone Glen CASH, Asma Primary Care Provider Khloe Nelson Unavailable [phone] Allergies Allergen (clinical drug ingredient) Drug/Non Drug Allergy documented on EMR Reaction Allergy Type Onset Date Status albuterol Albuterol Unknown Drug Allergy Active amoxicillin Amoxicillin Unknown Drug Allergy Act maria luisa Reason For Referral No Information Medications Medication SIG (Take, Route, Frequency, Duration) Notes Start Date End Date 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 [place] Active [...] Status Risk Notes Problem Plantar fascial fibromatosis (96226956) Plantar fascial fibromatosis (M72.2) Active confirmed Vital Signs Blood pressure diastolic 81 mm Hg 06/04/2025 Height 5ft 6in in 06/04/2025 Blood pressure systolic 137 mm Hg 06/04/2025 Weight 150 lbs 06/04/2025 BMI 24.21 kg/m2 06/04/2025 Encounters Encounter Location Date Provider Diagnosis [address] [address] 06/04/2025 Khloe Izaguirre Right foot pain M79.671 ; Sprain of right foot, initial encounter S93.601A and Strain of right foot, initial encounter S96.911A [address] [address] 06/04/2025 Khloe Izaguirre [address] [address] 06/04/2025 Khloe Izaguirre [address] [address] 07/06/2025 Khloe Izaguirre Assessments Encounter Date Diagnosis [...] X ray : Foot, right 3V 06/04/2025 [id number] TENDON SHEATH/LIGAMENT 0 01/27/2022 [id number] TENDON SHEATH/LIGAMENT 0 03/10/2022 Insurance Providers Payer Name Payer Address Payer Phone Subscriber Number Group Number Insured Name Patient Relationship to Insured Coverage Start Date Coverage End Date Medicare National [employer]t [employer] [address] [place] [address] [id number] Merlyn Morris Self - patient is the insured Interview Master ([employer]) [address] [place] [address] [id number] Merlyn Morris Self - patient is [...]
== END 2025-08-08 14:10 | disposition home or self-care (01) ==
LOC: HO.HMGAL 14:09
PROVIDERS: PCP Internal Medicine; Visit Provider Registered Nurse Emergency
DX: J30.89 Other allergic rhinitis (principal)
CPT/HCPCS: 95117; 95165